=== PATIENT | female | born 1980 | race Caucasian/White ===

== ENCOUNTER 2016-10-24 15:47 | Inpatient (IN) | payer OTHER ==
[2016-10-24 18:27] VITALS: BMI 18.1
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
[2016-10-24] MEDS ORDERED: guaiFENesin/D-METHORPHAN HB 10 ML UNIT-DOSE CUPS PO PRN (20:46)
[2016-10-24] MEDS ORDERED: IBUPROFEN 400 MG TABLET (FP) PO PRN (20:46)
[2016-10-24] MEDS ORDERED: hydrOXYzine PAMOATE 50 MG CAPSULE (FP) PO PRN (20:46)
[2016-10-24] MEDS ORDERED: NICOTINE 14 MG/24 HOURS TOPICAL PATCH TD PRN (20:46)
[2016-10-24] MEDS ORDERED: MAG HYDROX/AL HYDROX/SIMETH 30 ML UNIT-DOSE CUP PO PRN (20:46)
[2016-10-24] MEDS ORDERED: MENTHOL/PHENOL 1 EACH UD MM PRN (20:46)
[2016-10-24] MEDS ORDERED: P-EPHED 60MG/TRIPROLIDI 2.5MG TABLET PO PRN (20:46)
[2016-10-24] MEDS ORDERED: LOPERAMIDE HCL 2 MG CAPSULE PO PRN (20:46)
[2016-10-24] MEDS ORDERED: MAGNESIUM CITRATE 300 ML BOTTLE PO PRN (20:46)
[2016-10-24] MEDS ORDERED: chlordiazePOXIDE HCL 25 MG CAPSULE PO ONE (20:46)
[2016-10-24] MEDS ORDERED: chlordiazePOXIDE HCL 25 MG CAPSULE PO PRN (20:46)
[2016-10-24] MEDS ORDERED: MAGNESIUM HYDROX 2400MG/30ML ORAL SUSPENSION 30 ML CUP PO PRN (20:46)
[2016-10-24] MEDS ORDERED: ACETAMINOPHEN 325 MG TABLET (FP) PO PRN (20:46)
[2016-10-24] MEDS: THIAMINE HCL 100 MG TABLET (FP) PO SCH (23:15)
[2016-10-24] MEDS: NICOTINE POLACRILEX 2 MG GUM BC PRN (23:22)
[2016-10-24] MEDS: chlordiazePOXIDE HCL 25 MG CAPSULE PO SCH (23:22)
[2016-10-25] MEDS: chlordiazePOXIDE HCL 25 MG CAPSULE PO SCH ×4 (05:28→22:11)
--- NOTE | 2016-10-25 07:45 | CONSULT ---
[facility] Psychiatric Consult - Data Date of interview: 10/25/16 Admission source: [facility] Identifying data: This is 35 years old female with unclear past psychiatric history, psychiatic hospitalization history intoxicated with: Alcohol and Nicotine Substance Abuse History: - Smoking Cessation. Smoking history: Current every day smoker. Have you smoked in the past 12 months: Yes. Aproximately how many cigarettes per day: 5. Cigars Per Day: 0. Hx Chewing Tobacco Use: No. Initiated information on smoking cessation: Yes. 'Breaking Loose' booklet given : 10/24/16. - Substance & Tx. History. Hx Alcohol Use: Yes. Hx Substance Use : No. Substance Use Type: Alcohol. Hx Substance Use Treatment: Yes (09/22/16 [facility]). - Substances Abused. Alcohol. Route: Oral. Frequency: Daily. Amount used: liquor- 1/2 pint, beer- 2 ( 22oz). Age of first use: 34. Date of Last Use: 10/24/16 Medical History: Denies Psychiatric History: Patient reprots unclear psychiatric history, history of PTSD, with most recent psychiatric admission on about 5 years ago at [facility] reprots taking priuor to admission: Invega IM (?) dosage done on 10/20/2016. [place] 300mg poqd Physical/Sexual Abuse/Trauma History: Denies Additional Comment: Invega IM (?) dosage done on 10/20/2016. [place] 300mg poqd Mental Status Exam - Mental Status Exam Alert and Oriented to: Person Cognitive Function: Fair Patient Appearance: Unkempt Mood: Sad Affect: Flat Patient Behavior: Sedated Speech Pattern: Delayed Voice Loudness: Mildly Soft/Quiet Thought Process: Circumstantial Thought Disorder: Being Controlled Hallucinations: Denies Suicidal Ideation: Denies Homicidal Ideation: Denies Insight/Judgement: Fair Sleep: Difficulty falling asleep Muscle strength/Tone: Mild Hypotonicity Additional Comments: Invega IM (?) dosage done on 10/20/2016. [place] 300mg poqd Psychiatric Findings - Problem List ([place] 1, 2,3) (1) Alcohol dependence with uncomplicated withdrawal Current Visit: Yes Status: Acute (2) Nicotine dependence Current Visit: Yes Status: Acute Qualifiers: Nicotine product type: cigarettes Substance use status: in withdrawal Qualified Code(s): F17.213 - Nicotine dependence, cigarettes, with withdrawal (3) Bipolar II disorder Current Visit: Yes Status: Acute (4) Schizoaffective disorder Current Visit: Yes Status: Suspected - Initial Treatment Plan Initial Treatment Plan: Invega IM (?) dosage done on 10/20/2016. [place] 300mg poqd
[2016-10-25 10:03] LABS: MCH 33.9 pg (25.7-33.7); MCHC 33.2 g/dl (32.0-36.0); MEAN CELL VOLUME 102.1 fl (80-96); MEAN PLT VOLUME 8.2 fl (7.5-11.1); PLATELET COUNT 93 K/MM3 (134-434); RDW 13.5 % (11.6-15.6); WHITE BLOOD COUNT 7.7 K/mm3 (4.0-10.0)
[2016-10-25] MEDS: PRENATAL VITAMINS W/ FOLIC ACID TABLET (FP) PO SCH (10:13)
[2016-10-25] MEDS: LITHIUM CARBONATE 300 MG CAPSULE (FP) PO SCH (10:13)
[2016-10-25] MEDS: NICOTINE POLACRILEX 2 MG GUM BC PRN ×4 (10:17→22:12)
[2016-10-25 10:35] LABS: ALBUMIN 3.3 g/dl (3.4-5.0); ANION GAP 9 (8-16); CALCIUM 9.3 mg/dL (8.5-10.1); CO2 28 mmol/L (21-32); GLUCOSE,RANDOM 73 mg/dL (74-106)
[2016-10-25 10:41] LABS: ALK PHOS 104 U/L (45-117); BILIRUBIN,TOTAL 0.9 mg/dL (0.2-1.0); CREATININE 0.5 mg/dL (0.55-1.02); SGOT/AST 62 U/L (15-37); SGPT/ALT 43 U/L (12-78); TOT PROT 6.5 g/dl (6.4-8.2)
--- NOTE | 2016-10-25 11:10 | PN ---
S CIWA - CIWA Score Nausea/Vomitin Muscle Tremors: 3 Anxiety: 3 Agitation: 3 Paroxysmal Sweats: 1-Minimal Palms Moist Orientation: 0-Oriented Tacttile Disturbances: 1-Very Mild Itch/Numbness Auditory Disturbances: 1-Very Mild Visual Disturbances: 1-Very Mild Sensitivity Headache: 2-Mild CIWA-Ar Total Score: 18 S Progress Note (SOAP) Subjective: ALERT,IRRITABLE,ANXIOUS,INTERRUPTED SLEEP,TREMOR Objective: 10/25/16 11:08 Vital Signs Temperature 99.1 F 10/25/16 09:45 Pulse Rate 99 H 10/25/16 09:45 Respiratory Rate 18 10/25/16 09:45 Blood Pressure 130/97 10/25/16 09:45 O2 Sat by Pulse Oximetry (%) EKG NSR 10/25/16 11:09 Laboratory Last Values WBC 7.7 K/mm3 (4.0-10.0) 10/25/16 07:00 RBC 3.96 M/mm3 (3.60-5.2) 10/25/16 07:00 Hgb 13.4 GM/dL (10.7-15.3) 10/25/16 07:00 Hct 40.4 % (32.4-45.2) 10/25/16 07:00 MCV 102.1 fl (80-96) H 10/25/16 07:00 MCH 33.9 pg (25.7-33.7) H 10/25/16 07:00 MCHC 33.2 g/dl (32.0-36.0) 10/25/16 07:00 RDW 13.5 % (11.6-15.6) 10/25/16 07:00 Plt Count 93 K/MM3 (134-434) L 10/25/16 07:00 MPV 8.2 fl (7.5-11.1) 10/25/16 07:00 Sodium 137 mmol/L (136-145) 10/25/16 07:00 Potassium 3.7 mmol/L (3.5-5.1) 10/25/16 07:00 Chloride 100 mmol/L (98-107) 10/25/16 07:00 Carbon Dioxide 28 mmol/L (21-32) 10/25/16 07:00 Anion Gap 9 (8-16) 10/25/16 07:00 BUN 4 mg/dL (7-18) L 10/25/16 07:00 Creatinine 0.5 mg/dL (0.55-1.02) L 10/25/16 07:00 Creat Clearance w eGFR > 60 (>60) 10/25/16 07:00 Random Glucose 73 mg/dL (74-106) L 10/25/16 07:00 Calcium 9.3 mg/dL (8.5-10.1) 10/25/16 07:00 Total Bilirubin 0.9 mg/dL (0.2-1.0) 10/25/16 07:00 AST 62 U/L (15-37) H 10/25/16 07:00 ALT 43 U/L (12-78) 10/25/16 07:00 Alkaline Phosphatase 104 U/L (45-117) 10/25/16 07:00 Total Protein 6.5 g/dl (6.4-8.2) 10/25/16 07:00 Albumin 3.3 g/dl (3.4-5.0) L 10/25/16 07:00 Assessment: 10/25/16 11:09 WITHDRAWAL SYMPTOM Plan: CONTINUE DETOX
--- NOTE | 2016-10-25 11:31 | EKG ---
Test Reason : Blood Pressure : / mmHG Vent. Rate : 075 BPM Atrial Rate : 075 BPM P-R Int : 142 ms QRS Dur : 088 ms QT Int : 392 ms P-R-T Axes : 061 092 042 degrees QTc Int : 437 ms NORMAL SINUS RHYTHM RIGHTWARD AXIS BORDERLINE ECG NO PREVIOUS ECGS AVAILABLE Confirmed by RAGHAV QUESADA, RAVI ([id number]) on 10/25/2016 11:30:59 AM Referred By: Nathan Carey Confirmed By:RAVI AVILEZ MD
[2016-10-25] MEDS: THIAMINE HCL 100 MG TABLET (FP) PO SCH (22:11)
[2016-10-25] MEDS: diphenhydrAMINE HCL 50 MG CAPSULE PO PRN (22:59)
[2016-10-26] MEDS: diphenhydrAMINE HCL 50 MG CAPSULE PO PRN (00:43)
[2016-10-26] MEDS: NICOTINE POLACRILEX 2 MG GUM BC PRN ×3 (00:44→06:47)
[2016-10-26] MEDS: chlordiazePOXIDE HCL 25 MG CAPSULE PO SCH (05:42)
--- NOTE | 2016-10-26 09:01 | PN ---
S CIWA - CIWA Score Nausea/Vomitin Muscle Tremors: 3 Anxiety: 3 Agitation: 2 Paroxysmal Sweats: No Perspiration Orientation: 0-Oriented Tacttile Disturbances: 1-Very Mild Itch/Numbness Auditory Disturbances: 1-Very Mild Visual Disturbances: 1-Very Mild Sensitivity Headache: 2-Mild CIWA-Ar Total Score: 16 BHS Progress Note (SOAP) Subjective: ALERT,IRRITABLE,ANXIOUS,INTERRUPTED SLEEP,TREMOR Objective: 10/26/16 08:59 Vital Signs Temperature 97.5 F L 10/26/16 06:02 Pulse Rate 95 H 10/26/16 06:02 Respiratory Rate 20 10/26/16 06:02 Blood Pressure 124/84 10/26/16 06:02 O2 Sat by Pulse Oximetry (%) Laboratory Last Values WBC 7.7 K/mm3 (4.0-10.0) 10/25/16 07:00 RBC 3.96 M/mm3 (3.60-5.2) 10/25/16 07:00 Hgb 13.4 GM/dL (10.7-15.3) 10/25/16 07:00 Hct 40.4 % (32.4-45.2) 10/25/16 07:00 MCV 102.1 fl (80-96) H 10/25/16 07:00 MCH 33.9 pg (25.7-33.7) H 10/25/16 07:00 MCHC 33.2 g/dl (32.0-36.0) 10/25/16 07:00 RDW 13.5 % (11.6-15.6) 10/25/16 07:00 Plt Count 93 K/MM3 (134-434) L 10/25/16 07:00 MPV 8.2 fl (7.5-11.1) 10/25/16 07:00 Sodium 137 mmol/L (136-145) 10/25/16 07:00 Potassium 3.7 mmol/L (3.5-5.1) 10/25/16 07:00 Chloride 100 mmol/L (98-107) 10/25/16 07:00 Carbon Dioxide 28 mmol/L (21-32) 10/25/16 07:00 Anion Gap 9 (8-16) 10/25/16 07:00 BUN 4 mg/dL (7-18) L 10/25/16 07:00 Creatinine 0.5 mg/dL (0.55-1.02) L 10/25/16 07:00 Creat Clearance w eGFR > 60 (>60) 10/25/16 07:00 Random Glucose 73 mg/dL (74-106) L 10/25/16 07:00 Calcium 9.3 mg/dL (8.5-10.1) 10/25/16 07:00 Total Bilirubin 0.9 mg/dL (0.2-1.0) 10/25/16 07:00 AST 62 U/L (15-37) H 10/25/16 07:00 ALT 43 U/L (12-78) 10/25/16 07:00 Alkaline Phosphatase 104 U/L (45-117) 10/25/16 07:00 Total Protein 6.5 g/dl (6.4-8.2) 10/25/16 07:00 Albumin 3.3 g/dl (3.4-5.0) L 10/25/16 07:00 [place] 0.3 MEQ/L (0.6-1.2) L 10/25/16 07:00 Assessment: 10/26/16 09:00 WITHDRAWAL SYMPTOM Plan: CONTINUE DETOX
--- NOTE | 2016-10-26 09:41 | PN ---
[facility] Progress Note Note: PATIENT DID NOT WANT TO COMPLETE TREATMENT ,SIGNED RELEASE AMA,DID NOT WANT TO WAIT, SIGNED RELEASE AMA
[2016-10-26 09:42] VITALS: BP 114/73; PULSE 124; TEMP 97.7
--- NOTE | 2016-10-26 09:44 | DS ---
[facility] Detox Discharge Summary Admission Date: 10/24/16 Discharge Date: 10/26/16 - History Present History: Alcohol Dependence, Cocaine Dependence Additional Comments: FOLLOW UP WITH AFTER CARE PROGRAM ARRANGEMENT Pertinent Past History: BIPOLAR 2 DISORDER NICOTINE DEPENDENCE - Physical Exam Results Vital Signs: Vital Signs Temperature 97.5 F L 10/26/16 06:02 Pulse Rate 95 H 10/26/16 06:02 Respiratory Rate 20 10/26/16 06:02 Blood Pressure 124/84 10/26/16 06:02 O2 Sat by Pulse Oximetry (%) Pertinent Admission Physical Exam Findings: WITHDRAWAL FINDING - Treatment Patient has Accepted a Rehab Referral to: DECLINED - Medication Discharge Medications: Ambulatory Orders [place] Carbonate [Eskalith -] 300 mg PO DAILY #30 cap 10/25/16 - Diagnosis (1) Alcohol dependence with uncomplicated withdrawal Current Visit: Yes Status: Acute (2) Bipolar II disorder Current Visit: Yes Status: Acute (3) Nicotine dependence Current Visit: Yes Status: Acute Qualifiers: Nicotine product type: cigarettes Substance use status: in withdrawal Qualified Code(s): F17.213 - Nicotine dependence, cigarettes, with withdrawal (4) Schizoaffective disorder Current Visit: Yes Status: Suspected (5) Cocaine dependence Current Visit: Yes Status: Acute - AMA Did Patient Leave Against Medical Advice: Yes
[2016-10-26] MEDS: PRENATAL VITAMINS W/ FOLIC ACID TABLET (FP) PO SCH (11:37)
[2016-10-26] MEDS: LITHIUM CARBONATE 300 MG CAPSULE (FP) PO SCH (11:37)
[2016-10-26] MEDS ORDERED: chlordiazePOXIDE 5 MG CAPSULE PO SCH (23:00)
[2016-10-27] MEDS ORDERED: chlordiazePOXIDE HCL 10 MG CAPSULE PO SCH (23:00)
== END 2016-10-26 09:55 | disposition left against medical advice (07) | DRG 770 ==
LOC: YASAS 15:47 → Y6N 20:28
PROVIDERS: ADMIT Internal Medicine; ATTEND Internal Medicine
PROC: HZ2ZZZZ Detoxification Services for Substance Abuse Treatment (ICD-10-PCS; principal; 2016-10-26)
DX: F10.230 Alcohol dependence with withdrawal, uncomplicated (principal); F14.20 Cocaine dependence, uncomplicated; F17.213 Nicotine dependence, cigarettes, with withdrawal; F25.9 Schizoaffective disorder, unspecified; F31.81 Bipolar II disorder
CPT/HCPCS: 36415; 80053; 80178; 85027; 86593; 93005; 93010

== ENCOUNTER 2017-01-01 13:40 | Inpatient (IN) | payer OTHER ==
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
[2017-01-01] MEDS ORDERED: MAGNESIUM CITRATE 300 ML BOTTLE PO PRN (18:25)
[2017-01-01] MEDS ORDERED: LOPERAMIDE HCL 2 MG CAPSULE PO PRN (18:25)
[2017-01-01] MEDS ORDERED: MAG HYDROX/AL HYDROX/SIMETH 30 ML UNIT-DOSE CUP PO PRN (18:25)
[2017-01-01] MEDS ORDERED: MAGNESIUM HYDROX 2400MG/30ML ORAL SUSPENSION 30 ML CUP PO PRN (18:25)
[2017-01-01] MEDS ORDERED: chlordiazePOXIDE HCL 25 MG CAPSULE PO ONE (18:25)
[2017-01-01] MEDS ORDERED: hydrOXYzine PAMOATE 25 MG CAPSULE (FP) PO PRN (18:25)
[2017-01-01] MEDS ORDERED: ACETAMINOPHEN 325 MG TABLET (FP) PO PRN (18:25)
[2017-01-01] MEDS ORDERED: guaiFENesin/D-METHORPHAN HB 10 ML UNIT-DOSE CUPS PO PRN (18:25)
[2017-01-01] MEDS ORDERED: chlordiazePOXIDE HCL 25 MG CAPSULE PO PRN (18:25)
[2017-01-01] MEDS ORDERED: P-EPHED 60MG/TRIPROLIDI 2.5MG TABLET PO PRN (18:25)
[2017-01-01] MEDS ORDERED: MENTHOL/PHENOL 1 EACH UD MM PRN (18:25)
[2017-01-01] MEDS ORDERED: NICOTINE POLACRILEX 4 MG GUM BC PRN (18:25)
[2017-01-01] MEDS ORDERED: diphenhydrAMINE HCL 50 MG CAPSULE PO PRN (18:25)
[2017-01-01] MEDS ORDERED: IBUPROFEN 400 MG TABLET (FP) PO PRN (18:25)
[2017-01-01] MEDS: NICOTINE 21 MG/24 HOURS TOPICAL PATCH TD SCH (19:35)
[2017-01-01] MEDS ORDERED: THIAMINE HCL 100 MG TABLET (FP) PO SCH (22:00)
[2017-01-01] MEDS: chlordiazePOXIDE HCL 25 MG CAPSULE PO SCH (22:09)
[2017-01-01 22:13] LABS: URINE APPEARANCE SLCLOUDY; URINE BILIRUBIN NEGATIVE (NEGATIVE); URINE BLOOD NEGATIVE (NEGATIVE); URINE COLOR LTYELLOW; URINE GLUCOSE (UA) NEGATIVE (NEGATIVE); URINE KETONE NEGATIVE (NEGATIVE); URINE NITRITE NEGATIVE (NEGATIVE); URINE PROTEIN NEGATIVE (NEGATIVE); URINE UROBILINOGEN NEGATIVE mg/dL (0.2-1.0)
[2017-01-02] MEDS: chlordiazePOXIDE HCL 25 MG CAPSULE PO SCH ×2 (05:06→10:24)
[2017-01-02 08:58] LABS: URINE LEUK ESTERASE Negative (NEGATIVE)
--- NOTE | 2017-01-02 09:15 | PN ---
S CIWA - CIWA Score Nausea/Vomitin Muscle Tremors: 3 Anxiety: 3 Agitation: 2 Paroxysmal Sweats: 1-Minimal Palms Moist Orientation: 0-Oriented Tacttile Disturbances: 1-Very Mild Itch/Numbness Auditory Disturbances: 1-Very Mild Visual Disturbances: 0-None Headache: 2-Mild CIWA-Ar Total Score: 16 BHS Progress Note (SOAP) Subjective: ALERT,IRRITABLE,INTERRUPTED SLEEP,TREMOR Objective: 01/02/17 09:12 Vital Signs Temperature 97.9 F 01/02/17 06:00 Pulse Rate 63 01/02/17 06:00 Respiratory Rate 18 01/02/17 06:00 Blood Pressure 108/75 01/02/17 06:00 O2 Sat by Pulse Oximetry (%) EKG NSR,INVERTED T IN V2 NO CHEST PAIN,NO SOB,NO DIZZINESS Laboratory Last Values Urine Color Ltyellow 01/01/17 21:45 Urine Appearance Slcloudy 01/01/17 21:45 Urine pH 5.0 (5.0-8.0) 01/01/17 21:45 Ur Specific [place] 1.010 (1.001-1.035) 01/01/17 21:45 Urine Protein Negative (NEGATIVE) 01/01/17 21:45 Urine Glucose (UA) Negative (NEGATIVE) 01/01/17 21:45 Urine Ketones Negative (NEGATIVE) 01/01/17 21:45 Urine Blood Negative (NEGATIVE) 01/01/17 21:45 Urine Nitrite Negative (NEGATIVE) 01/01/17 21:45 Urine Bilirubin Negative (NEGATIVE) 01/01/17 21:45 Urine Urobilinogen Negative mg/dL (0.2-1.0) 01/01/17 21:45 LABS PENDING Assessment: 01/02/17 09:14 WITHDRAWAL SYMPTOM 01/02/17 09:15 Plan: CONTINUE DETOX
[2017-01-02] MEDS ORDERED: PRENATAL VITAMINS W/ FOLIC ACID TABLET (FP) PO SCH (10:00)
[2017-01-02 10:05] LABS: MCHC 33.7 g/dl (32.0-36.0); MEAN CELL VOLUME 100.9 fl (80-96); MEAN PLT VOLUME 8.1 fl (7.5-11.1); PLATELET COUNT 350 K/MM3 (134-434); RDW 13.9 % (11.6-15.6); WHITE BLOOD COUNT 8.7 K/mm3 (4.0-10.0)
[2017-01-02 10:06] LABS: ALBUMIN 3.3 g/dl (3.4-5.0); ALK PHOS 94 U/L (45-117); ANION GAP 7 (8-16); BILIRUBIN,TOTAL 0.3 mg/dL (0.2-1.0); CALCIUM 8.8 mg/dL (8.5-10.1); CO2 27 mmol/L (21-32); CREATININE 0.5 mg/dL (0.55-1.02); GLUCOSE,RANDOM 77 mg/dL (74-106); SGOT/AST 50 U/L (15-37); SGPT/ALT 63 U/L (12-78); TOT PROT 6.9 g/dl (6.4-8.2)
[2017-01-02] MEDS: NICOTINE 21 MG/24 HOURS TOPICAL PATCH TD SCH (10:24)
--- NOTE | 2017-01-02 15:10 | PN ---
[facility] Progress Note Note: call by nurse,patient did not want to complete treatment is not ready to continue detox,seen by counselor,signed release ama,did not want to wait
--- NOTE | 2017-01-02 15:11 | DS ---
[facility] Detox Discharge Summary Admission Date: 01/01/17 Discharge Date: 01/02/17 - History Present History: Alcohol Dependence, Cannabis Dependence Additional Comments: patient did not want to complete treatment,not ready to continue detox,seen by counselor,did not want to wait,signed release ama Pertinent Past History: nicotine dependence seizure disorder - Physical Exam Results Vital Signs: Vital Signs Temperature 98.1 F 01/02/17 10:00 Pulse Rate 80 01/02/17 10:00 Respiratory Rate 16 01/02/17 10:00 Blood Pressure 112/70 01/02/17 10:00 O2 Sat by Pulse Oximetry (%) Pertinent Admission Physical Exam Findings: withdrawal symptom - Medication Discharge Medications: Ambulatory Orders NK [No Known Home Medication] 01/01/17 - Diagnosis (1) Alcohol dependence with uncomplicated withdrawal Current Visit: Yes Status: Acute (2) Cannabis dependence, uncomplicated Current Visit: Yes Status: Acute (3) Nicotine dependence Current Visit: Yes Status: Acute Qualifiers: Nicotine product type: cigarettes Substance use status: in withdrawal Qualified Code(s): F17.213 - Nicotine dependence, cigarettes, with withdrawal; F17.213 - Nicotine dependence, cigarettes, with withdrawal (4) Seizure disorder Current Visit: Yes Status: Chronic - AMA Did Patient Leave Against Medical Advice: Yes
[2017-01-02 15:20] VITALS: BP 112/89; PULSE 97; TEMP 99.1
[2017-01-02] MEDS ORDERED: chlordiazePOXIDE HCL 25 MG CAPSULE PO SCH (23:00)
--- NOTE | 2017-01-03 12:48 | EKG ---
Test Reason : Blood Pressure : / mmHG Vent. Rate : 082 BPM Atrial Rate : 082 BPM P-R Int : 152 ms QRS Dur : 092 ms QT Int : 390 ms P-R-T Axes : 072 192 039 degrees QTc Int : 455 ms NORMAL SINUS RHYTHM POSSIBLE LEFT ATRIAL ENLARGEMENT RIGHT SUPERIOR AXIS DEVIATION INCOMPLETE RIGHT BUNDLE BRANCH BLOCK CANNOT RULE OUT ANTERIOR INFARCT , AGE UNDETERMINED ABNORMAL ECG WHEN COMPARED WITH ECG OF 24-OCT-2016 21:16, INCOMPLETE RIGHT BUNDLE BRANCH BLOCK IS NOW PRESENT Confirmed by RAGHAV QUESADA, RAVI ([id number]) on 01/03/2017 12:47:43 PM Referred By: Confirmed By:RAVI AVILEZ MD
[2017-01-03] MEDS ORDERED: chlordiazePOXIDE 5 MG CAPSULE PO SCH (23:00)
[2017-01-04] MEDS ORDERED: chlordiazePOXIDE HCL 10 MG CAPSULE PO SCH (23:00)
== END 2017-01-02 15:25 | disposition left against medical advice (07) | DRG 770 ==
LOC: YASAS 13:40 → Y6N 19:01
PROVIDERS: ADMIT Internal Medicine; ATTEND Internal Medicine
PROC: HZ2ZZZZ Detoxification Services for Substance Abuse Treatment (ICD-10-PCS; principal; 2017-01-01)
DX: F10.230 Alcohol dependence with withdrawal, uncomplicated (principal); F12.20 Cannabis dependence, uncomplicated; F17.213 Nicotine dependence, cigarettes, with withdrawal; G40.909 Epilepsy, unspecified, not intractable, without status epilepticus
CPT/HCPCS: 36415; 80053; 81003; 85027; 86593; 93005; 93010

== ENCOUNTER 2017-02-05 19:09 | Inpatient (IN) | payer OTHER ==
[2017-02-05 20:46] VITALS: BMI 20.6
--- NOTE | 2017-02-05 22:55 | HP ---
CIWA Score - CIWA Score Nausea/Vomitin Muscle Tremors: 4-Moderate,w/Arms Extend Anxiety: 4-Mod. Anxious/Guarded Agitation: 3 Paroxysmal Sweats: 3 Orientation: 0-Oriented Tacttile Disturbances: 1-Very Mild Itch/Numbness Auditory Disturbances: 0-None Visual Disturbances: 0-None Headache: 0-None Present CIWA-Ar Total Score: 18 Admission ROS BHS - HPI Chief Complaint: Alcohol withdrawal symptoms Allergies/Adverse Reactions: Allergies Allergy/AdvReac Type Severity Reaction Status Date / Time No Known Allergies Allergy Verified 02/05/17 22:07 History of Present Illness: 36 years old female with a long history of alcohol and marijuana dependence is admitted to detox. Patient has been in previous and reports insignificant period of sobriety. Patient has medical history of seizures, depression and denies suicidal ideation at this time. she states, " My goal is to quit drinking alcohol." Exam Limitations: Intoxication - Ebola screening Have you traveled outside of the country in the last 21 days: No Have you had contact with anyone from an Ebola affected area: No Have you been sick,other than usual withdrawal symptoms: No Do you have a fever: No - Review of Systems Constitutional: Chills, Diaphoresis, Loss of Appetite, Night Sweats, Changes in sleep EENT: reports: Sinus Pressure Respiratory: reports: No Symptoms reported Cardiac: reports: No Symptoms Reported GI: reports: Poor Appetite, Poor Fluid Intake, Vomiting, Indigestion, Abdominal cramping : reports: No Symptoms Reported Musculoskeletal: reports: Muscle Pain, Muscle Weakness Integumentary: reports: No Symptoms Reported Neuro: reports: Headache, Seizure, Tingling, Tremors Endocrine: reports: No Symptoms Reported Hematology: reports: No Symptoms Reported Psychiatric: reports: Orientated x3, Agitated, Anxious, Depressed Other Systems: Reviewed and Negative Patient History - Patient Medical History Hx Anemia: No Hx Asthma: No Hx Chronic Obstructive Pulmonary Disease (COPD): No Hx Cancer: No Hx Cardiac Disorders: No Hx Congestive Heart Failure: No Hx Hypertension: No Hx Hypercholesterolemia: No Hx Pacemaker: No HX Cerebrovascular Accident: No Hx Seizures: Yes (alcohol related-last episode was 2 weeks ago) Hx Dementia: No Hx Diabetes: No Hx Gastrointestinal Disorders: No Hx Liver Disease: No Hx Genitourinary Disorders: No Hx Sexually Transmitted Disorders: No (DENIES) Hx Renal Disease (ESRD): No Hx Thyroid Disease: No Hx Human Immunodeficiency Virus (HIV): No (NEGATIVE HX) Hx Hepatitis C: No Hx Depression: Yes Hx Suicide Attempt: Yes (DENIES SUICIDAL IDEATION) Hx Bipolar Disorder: Yes Hx Schizophrenia: Yes (schizoaffective disorder) - Patient Surgical History Past Surgical History: No Hx Neurologic Surgery: No Hx Cataract Extraction: No Hx Cardiac Surgery: No Hx Lung Surgery: No Hx Breast Surgery: No Hx Breast Biopsy: No Hx Abdominal Surgery: No Hx Appendectomy: No Hx Cholecystectomy: No Hx Genitourinary Surgery: No Hx Section: No Hx Orthopedic Surgery: No Hx Hysterectomy: No Anesthesia Reaction: No - PPD History Previous Implant?: Yes Implanted On Prior R Admission?: Yes Date: 01/03/17 (PATIENT LEFT BEFORE READING) PPD to be Administered?: Yes - Reproductive History Patient is a Female of Child Bearing Age (11 -55 yrs old): Yes Last Menstrual Period: 02/01/17 Patient : No - Smoking Cessation Smoking history: Current every day smoker Have you smoked in the past 12 months: Yes Aproximately how many cigarettes per day: 20 Cigars Per Day: 0 Hx Chewing Tobacco Use: No Initiated information on smoking cessation: Yes 'Breaking Loose' booklet given: 02/05/17 - Substance & Tx. History Hx Alcohol Use: Yes Hx Substance Use: Yes Substance Use Type: Alcohol, Marijuana - Substances Abused Alcohol Route: Oral Frequency: Daily Amount used: beer- 4 (24oz), VODKA- I PINT Age of first use: 16 Date of Last Use: 02/05/17 Marijuana/Hashish Route: Smoking Frequency: 3-6 times per week Amount used: I OUNCE Age of first use: 15 Date of Last Use: 02/05/17 Family Disease History - Family Disease History Family Disease History: CA: Mother, Other: Mother Admission Physical Exam BHS - Vital Signs Vital Signs: Vital Signs - 24 hr 02/05/17 20:42 Temperature 96.7 F L Pulse Rate 94 H Respiratory 18 Rate Blood Pressure 109/65 - Physical General Appearance: Yes: Severe Distress, Intoxicated, Tremorous, Irritable, Anxious HEENTM: Yes: EOMI, DIETER Respiratory: Yes: Lungs Clear, Normal Breath Sounds, No Respiratory Distress Neck: Yes: Supple Breast: Yes: Breast Exam Deferred Cardiology: Yes: Regular Rhythm, Regular Rate, S1, S2 Abdominal: Yes: Normal Bowel Sounds, Soft Genitourinary: Yes: Within Normal Limits Back: Yes: Within Normal Limits Musculoskeletal: Yes: Within Normal Limits Extremities: Yes: Tremors Neurological: Yes: Disoriented, Depressed Affect Integumentary: Yes: Dry Lymphatic: Yes: Within Normal Limits - Diagnostic (1) Alcohol dependence with uncomplicated withdrawal Current Visit: Yes Status: Chronic (2) Cannabis dependence, uncomplicated Current Visit: Yes Status: Chronic (3) Nicotine dependence Current Visit: Yes Status: Chronic Qualifiers: Nicotine product type: cigarettes Substance use status: in withdrawal Qualified Code(s): F17.213 - Nicotine dependence, cigarettes, with withdrawal (4) Seizure disorder Current Visit: Yes Status: Chronic Cleared for Admission [facility] - Detox or Rehab [facility] Level of Care: Medically Managed Detox Regimen/Protocol: Librium [facility] Breath Alcohol Content Breath Alcohol Content: 0.260 Urine Pregancy Test - Result Urine Test Results: Negative- NO Line Present Urine Drug Screen - Results Drug Screen Negative: No Urine Drug Screen Results: THC-Marijuana, BZO-Benzodiazepines
[2017-02-05] MEDS ORDERED: P-EPHED 60MG/TRIPROLIDI 2.5MG TABLET PO PRN (23:14)
[2017-02-05] MEDS ORDERED: hydrOXYzine PAMOATE 50 MG CAPSULE (FP) PO PRN (23:14)
[2017-02-05] MEDS ORDERED: MAGNESIUM HYDROX 2400MG/30ML ORAL SUSPENSION 30 ML CUP PO PRN (23:14)
[2017-02-05] MEDS ORDERED: LOPERAMIDE HCL 2 MG CAPSULE PO PRN (23:14)
[2017-02-05] MEDS ORDERED: ACETAMINOPHEN 325 MG TABLET (FP) PO PRN (23:14)
[2017-02-05] MEDS ORDERED: MENTHOL/PHENOL 1 EACH UD MM PRN (23:14)
[2017-02-05] MEDS ORDERED: MAGNESIUM CITRATE 300 ML BOTTLE PO PRN (23:14)
[2017-02-05] MEDS ORDERED: chlordiazePOXIDE HCL 25 MG CAPSULE PO PRN (23:14)
[2017-02-05] MEDS ORDERED: IBUPROFEN 400 MG TABLET (FP) PO PRN (23:14)
[2017-02-05] MEDS ORDERED: guaiFENesin/D-METHORPHAN HB 10 ML UNIT-DOSE CUPS PO PRN (23:14)
[2017-02-05] MEDS ORDERED: MAG HYDROX/AL HYDROX/SIMETH 30 ML UNIT-DOSE CUP PO PRN (23:14)
[2017-02-05] MEDS: chlordiazePOXIDE HCL 25 MG CAPSULE PO SCH (23:54)
[2017-02-06] MEDS: chlordiazePOXIDE HCL 25 MG CAPSULE PO SCH ×4 (05:18→22:36)
[2017-02-06] MEDS ORDERED: NICOTINE 14 MG/24 HOURS TOPICAL PATCH TD SCH (10:00)
[2017-02-06] MEDS ORDERED: PRENATAL VITAMINS W/ FOLIC ACID TABLET (FP) PO SCH (10:00)
[2017-02-06 10:05] LABS: MCH 34.1 pg (25.7-33.7); MCHC 33.5 g/dl (32.0-36.0); MEAN PLT VOLUME 8.5 fl (7.5-11.1); PLATELET COUNT 207 K/MM3 (134-434); RDW 13.5 % (11.6-15.6); WHITE BLOOD COUNT 7.4 K/mm3 (4.0-10.0)
[2017-02-06 10:16] LABS: CALCIUM 8.8 mg/dL (8.5-10.1)
[2017-02-06 10:22] LABS: ALBUMIN 3.7 g/dl (3.4-5.0); ALK PHOS 70 U/L (45-117); ANION GAP 10 (8-16); BILIRUBIN,TOTAL 0.3 mg/dL (0.2-1.0); CO2 26 mmol/L (21-32); CREATININE 0.6 mg/dL (0.55-1.02); GLUCOSE,RANDOM 67 mg/dL (74-106); SGOT/AST 19 U/L (15-37); SGPT/ALT 26 U/L (12-78); TOT PROT 7.2 g/dl (6.4-8.2)
--- NOTE | 2017-02-06 11:59 | PN ---
S CIWA - CIWA Score Nausea/Vomitin-No Nausea/No Vomiting Muscle Tremors: 4-Moderate,w/Arms Extend Anxiety: 4-Mod. Anxious/Guarded Agitation: 4-Moderately Restless Paroxysmal Sweats: 3 Orientation: 0-Oriented Tacttile Disturbances: 0-None Auditory Disturbances: 0-None Visual Disturbances: 0-None Headache: 0-None Present CIWA-Ar Total Score: 15 BHS Progress Note (SOAP) Subjective: interrupted sleep agitation sweats shakes body aches Objective: 02/06/17 11:58 Vital Signs Temperature 97.9 F 02/06/17 09:32 Pulse Rate 97 H 02/06/17 09:32 Respiratory Rate 18 02/06/17 09:32 Blood Pressure 114/74 02/06/17 09:32 O2 Sat by Pulse Oximetry (%) Laboratory Tests 02/06/17 02/06/17 07:00 07:00 WBC 7.4 RBC 3.91 Hgb 13.3 Hct 39.9 MCV 102.0 H MCH 34.1 H MCHC 33.5 RDW 13.5 Plt Count 207 D MPV 8.5 Sodium 140 Potassium 4.1 Chloride 104 Carbon Dioxide 26 Anion Gap 10 BUN 7 Creatinine 0.6 Creat Clearance w eGFR > 60 Random Glucose 67 L Calcium 8.8 Total Bilirubin 0.3 AST 19 D ALT 26 D Alkaline Phosphatase 70 D Total Protein 7.2 Albumin 3.7 aaox3 ambulating no acute distress Assessment: 02/06/17 11:59 withdrawal sx Plan: continue detox increase fluids
--- NOTE | 2017-02-06 14:23 | PN ---
BHS Progress Note Note: Digital Research Analyst approached patient for psychiatric consultation. Pt. refused to be seen by psychiatric nurse practitioner.
[2017-02-06] MEDS: NICOTINE POLACRILEX 2 MG GUM BC PRN ×2 (14:54→21:49)
--- NOTE | 2017-02-06 15:12 | CONSULT ---
[facility] Psych[facility] Consult - Data Date of interview: 02/06/17
--- NOTE | 2017-02-06 16:15 | CONSULT ---
[facility] Psychiatric Consult - Data Date of interview: 02/06/17 Admission source: [facility] Identifying data: Readmission to [facility] for this 36 y/o female seeking detox treatment on for alcohol and marihuana dependence.Patient is single without children,homeless,unemployed and dependent on friends for financial support. Substance Abuse History: Discussed in this session.See current [facility] report for details. Smoking history: Current every day smoker. Have you smoked in the past 12 months: Yes. Aproximately how many cigarettes per day: 20. Cigars Per Day: 0. Hx Chewing Tobacco Use: No. Initiated information on smoking cessation : Yes. 'Breaking Loose' booklet given: 02/05/17. - Substance & Tx. History. Hx Alcohol Use: Yes. Hx Substance Use: Yes. Substance Use Type: Alcohol, Marijuana. - Substances Abused. Alcohol. Route: Oral. Frequency: Daily. Amount used: beer- 4 (24oz), VODKA- I PINT. Age of first use: 16. Date of Last Use: 02/05/17. Marijuana/Hashish. Route: Smoking. Frequency: 3-6 times per week. Amount used: I OUNCE. Age of first use: 15. Date of Last Use : 02/05/17 Medical History: History of seizures (withdrawal-related). Psychiatric History: Patient is a hostile and irritable historian.Marginally cooperative.In this interview she denies history of psychiatric hospitalizations but admits to the diagnosis of PTSD.Ms Whitman indicates past connection with [facility] health clinic in [facility].She reports no current exposure to psychotropic medications (old records indicate past treatment with lithium as of October 2016 and previous admisssion to [facility])." I am not on psychiatric medications now and I don't want to take any." Patient denies history of suicide attempts. Physical/Sexual Abuse/Trauma History: Patient denies to discuss this domain. Additional Comment: Urine Drug Screen Results: THC-Marijuana, BZO- Benzodiazepines.Noted. Mental Status Exam - Mental Status Exam Alert and Oriented to: Time, Place, Person Cognitive Function: Grossly Intact Patient Appearance: Unkempt, Disheveled Mood: Nervous, Withdrawn, Anxious Affect: Mood Congruent Patient Behavior: Fatigued, Cooperative (superficially coperative) Speech Pattern: Clear, Appropriate Voice Loudness: Normal Thought Process: Goal Oriented Thought Disorder: Not Present Hallucinations: Denies Suicidal Ideation: Denies Homicidal Ideation: Denies Insight/Judgement: Poor Sleep: Well (as per self-report) Appetite: Fair Muscle strength/Tone: Normal Gait/Station: Normal Psychiatric Findings - Problem List ([place] 1, 2,3) (1) Alcohol dependence with uncomplicated withdrawal Current Visit: Yes Status: Acute (2) Cannabis dependence, uncomplicated Current Visit: Yes Status: Acute (3) Nicotine dependence Current Visit: Yes Status: Acute Qualifiers: Nicotine product type: cigarettes Substance use status: in withdrawal Qualified Code(s): F17.213 - Nicotine dependence, cigarettes, with withdrawal (4) Substance induced mood disorder Current Visit: Yes Status: Acute - Initial Treatment Plan Initial Treatment Plan: Psychoeducation.Detoxification.Observation.
[2017-02-06 18:13] LABS: URINE APPEARANCE SLCLOUDY; URINE BILIRUBIN NEGATIVE (NEGATIVE); URINE BLOOD NEGATIVE (NEGATIVE); URINE COLOR LTYELLOW; URINE GLUCOSE (UA) NEGATIVE (NEGATIVE); URINE KETONE NEGATIVE (NEGATIVE); URINE NITRITE NEGATIVE (NEGATIVE); URINE PROTEIN NEGATIVE (NEGATIVE); URINE UROBILINOGEN NEGATIVE mg/dL (0.2-1.0)
[2017-02-06] MEDS ORDERED: THIAMINE HCL 100 MG TABLET (FP) PO SCH (22:00)
[2017-02-06 22:59] LABS: URINE LEUK ESTERASE Negative (NEGATIVE)
[2017-02-07] MEDS: NICOTINE POLACRILEX 2 MG GUM BC PRN (06:20)
[2017-02-07] MEDS: chlordiazePOXIDE HCL 25 MG CAPSULE PO SCH (06:22)
[2017-02-07 06:24] VITALS: BP 112/76; PULSE 59; TEMP 96.9
--- NOTE | 2017-02-07 07:57 | EKG ---
Test Reason : Blood Pressure : / mmHG Vent. Rate : 077 BPM Atrial Rate : 077 BPM P-R Int : 150 ms QRS Dur : 090 ms QT Int : 402 ms P-R-T Axes : 059 068 036 degrees QTc Int : 454 ms NORMAL SINUS RHYTHM NORMAL ECG WHEN COMPARED WITH ECG OF 01-JAN-2017 18:26, INCOMPLETE RIGHT BUNDLE BRANCH BLOCK IS NO LONGER PRESENT Confirmed by MD Patel Daniel ([id number]) on 02/06/2017 3:01:13 PM Also confirmed by MD Patel Daniel ([id number]), industrial editor KEMI GARCIA ([id number]) on 02/07/2017 7:57:12 AM Referred By: Confirmed By:Kemi Patel MD
--- NOTE | 2017-02-07 09:18 | PN ---
[facility] Progress Note Note: pt refused to stay and complete detox she states she needs to go home. pt signed out AMA.
--- NOTE | 2017-02-07 09:20 | DS ---
[facility] Detox Discharge Summary Admission Date: 02/05/17 Discharge Date: 02/07/17 (pt signed out AMA) - History Present History: Alcohol Dependence, Cannabis Dependence, Cocaine Dependence - Physical Exam Results Vital Signs: Vital Signs Temperature 96.9 F L 02/07/17 06:23 Pulse Rate 59 L 02/07/17 06:23 Respiratory Rate 16 02/07/17 06:23 Blood Pressure 112/76 02/07/17 06:23 O2 Sat by Pulse Oximetry (%) - Treatment Hospital Course: Discharged Condition Good - Medication Discharge Medications: Ambulatory Orders NK [No Known Home Medication] 01/01/17 - Diagnosis (1) Alcohol dependence with uncomplicated withdrawal Current Visit: Yes Status: Chronic (2) Cannabis dependence, uncomplicated Current Visit: Yes Status: Chronic (3) Nicotine dependence Current Visit: Yes Status: Chronic Qualifiers: Nicotine product type: cigarettes Substance use status: uncomplicated Qualified Code(s): F17.210 - Nicotine dependence, cigarettes, uncomplicated (4) Substance induced mood disorder Current Visit: Yes Status: Acute (5) Seizure disorder Current Visit: Yes Status: Chronic (6) Bipolar II disorder Current Visit: No Status: Acute (7) Cocaine dependence Current Visit: Yes Status: Chronic Qualifiers: Substance use status: uncomplicated Qualified Code(s): F14.20 - Cocaine dependence, uncomplicated (8) Schizoaffective disorder Current Visit: No Status: Suspected - AMA Did Patient Leave Against Medical Advice: Yes (going home)
[2017-02-07] MEDS ORDERED: chlordiazePOXIDE 5 MG CAPSULE PO SCH (23:00)
[2017-02-08] MEDS ORDERED: chlordiazePOXIDE HCL 10 MG CAPSULE PO SCH (23:00)
== END 2017-02-07 08:52 | disposition home or self-care (01) | DRG 774 ==
LOC: YASAS 19:09 → Y6N 22:20
PROVIDERS: ADMIT Internal Medicine; ATTEND Internal Medicine
PROC: HZ2ZZZZ Detoxification Services for Substance Abuse Treatment (ICD-10-PCS; principal; 2017-02-05)
DX: F10.230 Alcohol dependence with withdrawal, uncomplicated (principal); F14.20 Cocaine dependence, uncomplicated; F12.20 Cannabis dependence, uncomplicated; F17.210 Nicotine dependence, cigarettes, uncomplicated; F19.24 Other psychoactive substance dependence with psychoactive substance-induced mood disorder; F25.9 Schizoaffective disorder, unspecified; F31.81 Bipolar II disorder; G40.909 Epilepsy, unspecified, not intractable, without status epilepticus
CPT/HCPCS: 36415; 80053; 81003; 85027; 86593; 93005; 93010

== ENCOUNTER 2017-12-26 13:26 | Inpatient (IN) | payer OTHER ==
[2017-12-26 15:10] VITALS: BMI 18.7
--- NOTE | 2017-12-26 16:25 | HP ---
CIWA Score - CIWA Score Nausea/Vomitin-No Nausea/No Vomiting Muscle Tremors: 2 Anxiety: 3 Agitation: 3 Paroxysmal Sweats: 2 Orientation: 1-Uncertain about Date (no distress) Tacttile Disturbances: 1-Very Mild Itch/Numbness Auditory Disturbances: 0-None Visual Disturbances: 0-None Headache: 0-None Present CIWA-Ar Total Score: 12 Admission ROS BHS - HPI Chief Complaint: alcohol withdrawal symptoms Allergies/Adverse Reactions: Allergies Allergy/AdvReac Type Severity Reaction Status Date / Time No Known Allergies Allergy Verified 12/26/17 14:57 History of Present Illness: 37 yo female with hx of nicotine, marijuana and alcohol dependence is here seeking detox. Utox positive for bzo and THC. Reports was admitted to [facility] two weeks ago to the psych gonzalez for "nervous break down." Reports visited [facility] yesterday for alcohol use. PMHX: schizophrenia. Denies suicidal / homicidal ideation or hx of suicide attempt. Last detox [facility] and Re[facility] September 2017. Hx of ETOH seizure with last episode Nov 2017. Longest period of sobriety 8 years and relapsed at age 36. Exam Limitations: No Limitations - Ebola screening Have you traveled outside of the country in the last 21 days: No Have you had contact with anyone from an Ebola affected area: No Have you been sick,other than usual withdrawal symptoms: No Do you have a fever: No - Review of Systems Constitutional: Chills, Weight Stable EENT: reports: No Symptoms Reported Respiratory: reports: No Symptoms reported Cardiac: reports: No Symptoms Reported GI: reports: No Symptoms Reported : reports: No Symptoms Reported Musculoskeletal: reports: Back Pain, Joint Pain Integumentary: reports: Dryness Neuro: reports: No Symptoms reported Endocrine: reports: Increased Thirst Hematology: reports: No Symptoms Reported Psychiatric: reports: Orientated x3, Anxious Other Systems: Reviewed and Negative Patient History - Patient Medical History Hx Anemia: No Hx Asthma: No Hx Chronic Obstructive Pulmonary Disease (COPD): No Hx Cancer: No Hx Cardiac Disorders: No Hx Congestive Heart Failure: No Hx Hypertension: No Hx Hypercholesterolemia: No Hx Pacemaker: No HX Cerebrovascular Accident: No Hx Seizures: Yes ([facility] 11/2017) Hx Dementia: No Hx Diabetes: No Hx Gastrointestinal Disorders: No Hx Liver Disease: No Hx Genitourinary Disorders: No Hx Sexually Transmitted Disorders: No Hx Renal Disease (ESRD): No Hx Thyroid Disease: No Hx Human Immunodeficiency Virus (HIV): No (NEGATIVE HX) Hx Hepatitis C: No Hx Depression: No Hx Suicide Attempt: No Hx Bipolar Disorder: Yes Hx Schizophrenia: Yes (diagnosed at 24 years old) - Patient Surgical History Past Surgical History: No Hx Neurologic Surgery: No Hx Cataract Extraction: No Hx Cardiac Surgery: No Hx Lung Surgery: No Hx Breast Surgery: No Hx Breast Biopsy: No Hx Abdominal Surgery: No Hx Appendectomy: No Hx Cholecystectomy: No Hx Genitourinary Surgery: No Hx Section: No Hx Orthopedic Surgery: No Hx Hysterectomy: No Anesthesia Reaction: No - PPD History Previous Implant?: Yes Documented Results: Negative w/proof Implanted On Prior [facility] Admission?: Yes Date: 01/03/17 PPD to be Administered?: No - Reproductive History Last Menstrual Period: 02/01/17 Patient : No - Smoking Cessation Smoking history: Current every day smoker Have you smoked in the past 12 months: Yes Aproximately how many cigarettes per day: 20 Cigars Per Day: 0 Hx Chewing Tobacco Use: No Initiated information on smoking cessation: Yes 'Breaking Loose' booklet given: 12/26/17 - Substance & Tx. History Hx Alcohol Use: Yes Hx Substance Use: Yes Substance Use Type: Alcohol Hx Substance Use Treatment: Yes (Last detox [facility] detox and Rehab September 2017) - Substances Abused Alcohol Route: Oral Frequency: Daily Amount used: 2 pints of vodka Age of first use: 16 Date of Last Use: 12/25/17 Marijuana/Hashish Route: Smoking Frequency: 1-3 times last 30 days Amount used: 1 ayla bag Age of first use: 16 Date of Last Use: 12/24/17 Family Disease History - Family Disease History Family Disease History: CA: Mother, Other: Mother Admission Physical Exam BHS - Vital Signs Vital Signs: Vital Signs - 24 hr 12/26/17 14:59 Temperature 98.3 F Pulse Rate 106 H Respiratory 16 Rate Blood Pressure 118/78 - Physical General Appearance: Yes: Disheveled, Thin, Other (unkempt) HEENTM: Yes: EOMI, Hearing grossly Normal, Normal ENT Inspection, Normocephalic , Normal Voice, DIETER, Pharynx Normal, Tm's normal, Other (dry mucous membranes) Respiratory: Yes: Chest Non-Tender, Lungs Clear, Normal Breath Sounds, No Respiratory Distress, No Accessory Muscle Use Neck: Yes: Within Normal Limits Breast: Yes: Breast Exam Deferred Cardiology: Yes: Regular Rhythm, Regular Rate Abdominal: Yes: Normal Bowel Sounds, Non Tender, Flat, Soft Genitourinary: Yes: Within Normal Limits Back: Yes: Normal Inspection Musculoskeletal: Yes: full range of Motion, Gait Steady, Pelvis Stable, Back pain Extremities: Yes: Normal Capillary Refill, Normal Inspection, Normal Range of Motion Neurological: Yes: charting clerk II-XII NML intact, Fully Oriented, Alert, Motor Strength 5/5, Depressed Affect Integumentary: Yes: Normal Color, Warm, Moist Lymphatic: Yes: Within Normal Limits - Diagnostic (1) Alcohol dependence with uncomplicated withdrawal Current Visit: Yes Status: Chronic (2) Cannabis dependence, uncomplicated Current Visit: Yes Status: Chronic (3) Cocaine dependence Current Visit: Yes Status: Chronic Qualifiers: Substance use status: uncomplicated Qualified Code(s): F14.20 - Cocaine dependence, uncomplicated (4) Nicotine dependence Current Visit: Yes Status: Chronic Qualifiers: Nicotine product type: cigarettes Substance use status: uncomplicated Qualified Code(s): F17.210 - Nicotine dependence, cigarettes, uncomplicated (5) Psychiatric disorder Current Visit: Yes Status: Suspected Cleared for Admission [facility] - Detox or Rehab [facility] Level of Care: Medically Managed Detox Regimen/Protocol: Librium [facility] Breath Alcohol Content Breath Alcohol Content: 0 Urine Pregancy Test - Result Urine Test Results: Negative- NO Line Present Urine Drug Screen - Results Drug Screen Negative: No Urine Drug Screen Results: THC-Marijuana, BZO-Benzodiazepines
[2017-12-26] MEDS ORDERED: guaiFENesin/D-METHORPHAN HB 10 ML UNIT-DOSE CUPS PO PRN (16:28)
[2017-12-26] MEDS ORDERED: chlordiazePOXIDE HCL 25 MG CAPSULE PO PRN (16:28)
[2017-12-26] MEDS ORDERED: ACETAMINOPHEN 325 MG TABLET (FP) PO PRN (16:28)
[2017-12-26] MEDS ORDERED: IBUPROFEN 400 MG TABLET (FP) PO PRN (16:28)
[2017-12-26] MEDS ORDERED: hydrOXYzine PAMOATE 50 MG CAPSULE (FP) PO PRN (16:28)
[2017-12-26] MEDS ORDERED: MAGNESIUM CITRATE 300 ML BOTTLE PO PRN (16:28)
[2017-12-26] MEDS ORDERED: MAGNESIUM HYDROX 2400MG/30ML ORAL SUSPENSION 30 ML CUP PO PRN (16:28)
[2017-12-26] MEDS ORDERED: MENTHOL/PHENOL 1 EACH UD MM PRN (16:28)
[2017-12-26] MEDS ORDERED: P-EPHED 60MG/TRIPROLIDI 2.5MG TABLET PO PRN (16:28)
[2017-12-26] MEDS ORDERED: LOPERAMIDE HCL 2 MG CAPSULE PO PRN (16:28)
[2017-12-26] MEDS ORDERED: MAG HYDROX/AL HYDROX/SIMETH 30 ML UNIT-DOSE CUP PO PRN (16:28)
[2017-12-26] MEDS ORDERED: MELATONIN 5 MG TABLETS PO PRN (22:00)
[2017-12-26] MEDS ORDERED: THIAMINE HCL 100 MG TABLET (FP) PO SCH (22:00)
[2017-12-26] MEDS: chlordiazePOXIDE HCL 25 MG CAPSULE PO SCH (22:37)
[2017-12-26] MEDS: NICOTINE POLACRILEX 2 MG GUM BUC PRN (22:40)
[2017-12-26 23:27] LABS: URINE APPEARANCE CLOUDY; URINE COLOR AMBER; URINE GLUCOSE (UA) NEGATIVE (NEGATIVE); URINE KETONE NEGATIVE (NEGATIVE); URINE LEUK ESTERASE TRACE (NEGATIVE); URINE NITRITE NEGATIVE (NEGATIVE); URINE PROTEIN 2+ (NEGATIVE); URINE UROBILINOGEN 4.0 E.U/dl mg/dL (0.2-1.0)
[2017-12-26 23:36] LABS: EPI CELLS MANY /HPF (FEW); URINE MUCUS MANY
[2017-12-27] MEDS: chlordiazePOXIDE HCL 25 MG CAPSULE PO SCH ×3 (05:40→17:36)
--- NOTE | 2017-12-27 07:48 | CONSULT ---
[facility] Psychiatric Consult - Data Date of interview: 12/27/17 Admission source: [facility] Identifying data: This is a 37 years old female, single, with ni children, living with boyfriend, unemployed, with no income, with history Schizoaffective disorder, history of psychiatric hospitalizations, with Marijuana, and Alcohol, Nicotine dependence is IS here reporting withdrawal symptoms and seeking detox. Substance Abuse History: Smoking history: Current every day smoker. Have you smoked in the past 12 months: Yes. Aproximately how many cigarettes per day: 20. Cigars Per Day: 0. Hx Chewing Tobacco Use: No. Initiated information on smoking cessation: Yes. 'Breaking Loose' booklet given: 12/26/17. - Substance & Tx. History. Hx Alcohol Use: Yes. Hx Substance Use: Yes. Substance Use Type : Alcohol. Hx Substance Use Treatment: Yes (Last detox [facility] detox [facility] Re[facility] September 2017). - Substances Abused. Alcohol. Route: Oral. Frequency: Daily. Amount used: 2 pints of vodka. Age of first use: 16. Date of Last Use: 12/25/17. Marijuana/Hashish. Route: Smoking. Frequency: 1-3 times last 30 days. Amount used: 1 ayla bag. Age of first use: 16. Date of Last Use: 12/24/17 Medical History: Seizure history, denies any significant medical issues. Psychiatric History: Patient reports to carry Schizoaffective disorder, reports most recent psychoatric admission on at [facility], reports currently stable on Invega Sustenna IM , Unknown dose, last injection on ,patient reports one injection in three months (?). Denies suicidal, homicidal history. Physical/Sexual Abuse/Trauma History: Denies Additional Comment: Invega Sustenna IM , Unknown dose, last injection on 2017,patient reports one injection in three months (?) Mental Status Exam - Mental Status Exam Alert and Oriented to: Person Cognitive Function: Fair Patient Appearance: Unkempt Mood: Suspicious Affect: Mood Congruent Patient Behavior: Cooperative Speech Pattern: Appropriate Voice Loudness: Normal Thought Process: Goal Oriented Thought Disorder: Being Controlled Hallucinations: Denies Suicidal Ideation: Denies Homicidal Ideation: Denies Insight/Judgement: Fair Sleep: Difficulty falling asleep Appetite: Weight loss Muscle strength/Tone: Mild Hypotonicity Gait/Station: Shuffling Additional Comments: Invega Sustenna IM , Unknown dose, last injection on ,patient reports one injection in three months (?) Psychiatric Findings - Problem List ([place] 1, 2,3) (1) Alcohol dependence with uncomplicated withdrawal Current Visit: Yes Status: Chronic (2) Cannabis dependence, uncomplicated Current Visit: Yes Status: Chronic (3) Cocaine dependence Current Visit: Yes Status: Chronic Qualifiers: Substance use status: uncomplicated Qualified Code(s): F14.20 - Cocaine dependence, uncomplicated (4) Nicotine dependence Current Visit: Yes Status: Chronic Qualifiers: Nicotine product type: cigarettes Substance use status: uncomplicated Qualified Code(s): F17.210 - Nicotine dependence, cigarettes, uncomplicated (5) Seizure disorder Current Visit: Yes Status: Chronic (6) Schizoaffective disorder Current Visit: Yes Status: Suspected (7) Bipolar II disorder Current Visit: No Status: Acute (8) Substance induced mood disorder Current Visit: No Status: Acute - Initial Treatment Plan Initial Treatment Plan: Invega Sustenna IM , Unknown dose, last injection on ,patient reports one injection in three months (?)
[2017-12-27] MEDS ORDERED: PRENATAL VITAMINS W/ FOLIC ACID TABLET (FP) PO SCH (10:00)
[2017-12-27] MEDS ORDERED: NICOTINE 14 MG/24 HOURS TOPICAL PATCH TD SCH (10:00)
[2017-12-27] MEDS: NICOTINE POLACRILEX 2 MG GUM BUC PRN ×4 (10:03→17:37)
[2017-12-27 10:56] LABS: HEMATOCRIT 37.9 % (32.4-45.2); HEMOGLOBIN 12.6 GM/dL (10.7-15.3); MCH 34.9 pg (25.7-33.7); MCHC 33.2 g/dl (32.0-36.0); MEAN CELL VOLUME 105.1 fl (80-96); MEAN PLT VOLUME 8.9 fl (7.5-11.1); PLATELET COUNT 130 K/MM3 (134-434); RBC 3.61 M/mm3 (3.60-5.2); RDW 13.6 % (11.6-15.6); WHITE BLOOD COUNT 4.4 K/mm3 (4.0-10.0)
[2017-12-27 11:23] LABS: ALBUMIN 3.2 g/dl (3.4-5.0); ALK PHOS 95 U/L (45-117); ANION GAP 11 MMOL/L (8-16); BILIRUBIN,TOTAL 0.7 mg/dL (0.2-1); BLOOD UREA NITROGEN 3 mg/dL (7-18); CALCIUM 8.5 mg/dL (8.5-10.1); CHLORIDE 109 mmol/L (98-107); CO2 23 mmol/L (21-32); CREATININE 0.5 mg/dL (0.55-1.3); GLUCOSE,RANDOM 91 mg/dL (74-106); POTASSIUM 4.1 mmol/L (3.5-5.1); SGOT/AST 45 U/L (15-37); SGPT/ALT 47 U/L (13-61); SODIUM 142 mmol/L (136-145); TOT PROT 6.3 g/dl (6.4-8.2)
--- NOTE | 2017-12-27 11:49 | PN ---
S CIWA - CIWA Score Nausea/Vomitin-No Nausea/No Vomiting Muscle Tremors: 4-Moderate,w/Arms Extend Anxiety: 4-Mod. Anxious/Guarded Agitation: 4-Moderately Restless Paroxysmal Sweats: 3 Orientation: 0-Oriented Tacttile Disturbances: 0-None Auditory Disturbances: 0-None Visual Disturbances: 0-None Headache: 0-None Present CIWA-Ar Total Score: 15 BHS Progress Note (SOAP) Subjective: shakes sweats agitation anxiety irritable interrupted sleep Objective: 12/27/17 11:48 Vital Signs Temperature 97.0 F L 12/27/17 09:30 Pulse Rate 109 H 12/27/17 09:30 Respiratory Rate 18 12/27/17 09:30 Blood Pressure 107/89 12/27/17 09:30 O2 Sat by Pulse Oximetry (%) Laboratory Tests 12/26/17 12/27/17 12/27/17 22:22 07:00 07:00 WBC 4.4 RBC 3.61 Hgb 12.6 Hct 37.9 MCV 105.1 H MCH 34.9 H MCHC 33.2 RDW 13.6 Plt Count 130 L D MPV 8.9 Sodium 142 Potassium 4.1 Chloride 109 H Carbon Dioxide 23 Anion Gap 11 BUN 3 L Creatinine 0.5 L Creat Clearance w eGFR > 60 Random Glucose 91 Calcium 8.5 Total Bilirubin 0.7 AST 45 H ALT 47 Alkaline Phosphatase 95 Total Protein 6.3 L Albumin 3.2 L Urine Color Nicole Urine Appearance Cloudy Urine pH 7.0 D Ur Specific [place] 1.025 Urine Protein 2+ H Urine Glucose (UA) Negative Urine Ketones Negative Urine Blood Negative Urine Nitrite Negative Urine Bilirubin 2.0 Urine Urobilinogen 4.0 e.u/dl H Ur Leukocyte Esterase Trace Urine WBC (Auto) 14 Urine RBC (Auto) 6 Ur Epithelial Cells Many Urine Mucus Many repeat u/a aaox3 ambulating no acute distress Assessment: 12/27/17 11:49 withdrawal sx Plan: continue detox increase fluids
[2017-12-27] MEDS ORDERED: FLU VACCINE QUAD 60 MCG/0.5 ML (MDV 18-19) IM ONE (12:00)
--- NOTE | 2017-12-27 12:19 | EKG ---
Test Reason : Blood Pressure : / mmHG Vent. Rate : 071 BPM Atrial Rate : 071 BPM P-R Int : 148 ms QRS Dur : 090 ms QT Int : 408 ms P-R-T Axes : 060 025 046 degrees QTc Int : 443 ms NORMAL SINUS RHYTHM NORMAL ECG WHEN COMPARED WITH ECG OF 05-FEB-2017 23:59, T WAVE INVERSION NOW EVIDENT IN ANTERIOR LEADS Confirmed by EFREM NJ MD ([id number]) on 12/27/2017 12:18:57 PM Referred By: Confirmed By:EFREM NJ MD
[2017-12-27 17:23] VITALS: BP 121/71; PULSE 106; TEMP 96.4
--- NOTE | 2017-12-27 20:07 | DS ---
[facility] Detox Discharge Summary Admission Date: 12/26/17 Discharge Date: 12/27/17 - History Additional Comments: Patient is leaving against medical advice. She reports, "I just want to leave , I feel tired staying here" Pertinent Past History: Cocaine dependence, Nicotine dependence, seizure disorder, opioid dependence, cannabis dependence, alcohol dependence - Physical Exam Results Vital Signs: Vital Signs Temperature 96.4 F L 12/27/17 17:23 Pulse Rate 106 H 12/27/17 17:23 Respiratory Rate 16 12/27/17 17:23 Blood Pressure 121/71 12/27/17 17:23 O2 Sat by Pulse Oximetry (%) Laboratory Last Values WBC 4.4 K/mm3 (4.0-10.0) 12/27/17 07:00 RBC 3.61 M/mm3 (3.60-5.2) 12/27/17 07:00 Hgb 12.6 GM/dL (10.7-15.3) 12/27/17 07:00 Hct 37.9 % (32.4-45.2) 12/27/17 07:00 MCV 105.1 fl (80-96) H 12/27/17 07:00 MCH 34.9 pg (25.7-33.7) H 12/27/17 07:00 MCHC 33.2 g/dl (32.0-36.0) 12/27/17 07:00 RDW 13.6 % (11.6-15.6) 12/27/17 07:00 Plt Count 130 K/MM3 (134-434) L D 12/27/17 07:00 MPV 8.9 fl (7.5-11.1) 12/27/17 07:00 Sodium 142 mmol/L (136-145) 12/27/17 07:00 Potassium 4.1 mmol/L (3.5-5.1) 12/27/17 07:00 Chloride 109 mmol/L (98-107) H 12/27/17 07:00 Carbon Dioxide 23 mmol/L (21-32) 12/27/17 07:00 Anion Gap 11 MMOL/L (8-16) 12/27/17 07:00 BUN 3 mg/dL (7-18) L 12/27/17 07:00 Creatinine 0.5 mg/dL (0.55-1.3) L 12/27/17 07:00 Creat Clearance w eGFR > 60 (>60) 12/27/17 07:00 Random Glucose 91 mg/dL (74-106) 12/27/17 07:00 Calcium 8.5 mg/dL (8.5-10.1) 12/27/17 07:00 Total Bilirubin 0.7 mg/dL (0.2-1) 12/27/17 07:00 AST 45 U/L (15-37) H 12/27/17 07:00 ALT 47 U/L (13-61) 12/27/17 07:00 Alkaline Phosphatase 95 U/L (45-117) 12/27/17 07:00 Total Protein 6.3 g/dl (6.4-8.2) L 12/27/17 07:00 Albumin 3.2 g/dl (3.4-5.0) L 12/27/17 07:00 Urine Color Nicole 12/26/17:22 Urine Appearance Cloudy 12/26/17 22: Urine pH 7.0 (5.0-8.0) D 12/26/17 22:22 Ur Specific [place] 1.025 (1.010-1.035) 12/26/17 22:22 Urine Protein 2+ (NEGATIVE) H 12/26/17 22:22 Urine Glucose (UA) Negative (NEGATIVE) 12/26/17 22:22 Urine Ketones Negative (NEGATIVE) 12/26/17 22:22 Urine Blood Negative (NEGATIVE) 12/26/17 22:22 Urine Nitrite Negative (NEGATIVE) 12/26/17 22:22 Urine Bilirubin 2.0 (<2.0 mg/dL) 12/26/17 22: Urine Urobilinogen 4.0 e.u/dl mg/dL (0.2-1.0) H 12/26/17 22:22 Ur Leukocyte Esterase Trace (NEGATIVE) 12/26/17 22:22 Urine WBC (Auto) 14 /hpf (3-5) 12/26/17 22:22 Urine RBC (Auto) 6 /hpf (0-3) 12/26/17 22:22 Ur Epithelial Cells Many /HPF (FEW) 12/26/17 22:22 Urine Mucus Many 12/26/17 22:22 RPR Titer Nonreactive (NONREACTIVE) 12/27/17 07:00 Pertinent Admission Physical Exam Findings: Alcohol withdrawal symptoms - Medication Discharge Medications: Ambulatory Orders NK [No Known Home Medication] 01/01/17 - Diagnosis (1) Alcohol dependence with uncomplicated withdrawal Current Visit: Yes Status: Chronic (2) Cocaine dependence Current Visit: No Status: Chronic Qualifiers: Substance use status: uncomplicated Qualified Code(s): F14.20 - Cocaine dependence, uncomplicated (3) Nicotine dependence Current Visit: No Status: Chronic Qualifiers: Nicotine product type: cigarettes Substance use status: uncomplicated Qualified Code(s): F17.210 - Nicotine dependence, cigarettes, uncomplicated (4) Seizure disorder Current Visit: No Status: Chronic (5) Cannabis dependence, uncomplicated Current Visit: Yes Status: Chronic - AMA Did Patient Leave Against Medical Advice: Yes
[2017-12-27] MEDS ORDERED: chlordiazePOXIDE HCL 25 MG CAPSULE PO SCH (23:00)
[2017-12-28] MEDS ORDERED: chlordiazePOXIDE 5 MG CAPSULE PO SCH (23:00)
[2017-12-29] MEDS ORDERED: chlordiazePOXIDE HCL 10 MG CAPSULE PO SCH (23:00)
== END 2017-12-27 19:55 | disposition left against medical advice (07) | DRG 770 ==
LOC: YASAS 13:26 → Y6N 16:34
PROC: HZ2ZZZZ Detoxification Services for Substance Abuse Treatment (ICD-10-PCS; principal; 2017-12-26)
DX: F10.230 Alcohol dependence with withdrawal, uncomplicated (principal); F14.20 Cocaine dependence, uncomplicated; F12.20 Cannabis dependence, uncomplicated; F17.210 Nicotine dependence, cigarettes, uncomplicated; F31.81 Bipolar II disorder; F25.9 Schizoaffective disorder, unspecified; F19.24 Other psychoactive substance dependence with psychoactive substance-induced mood disorder; F99 Mental disorder, not otherwise specified; G40.909 Epilepsy, unspecified, not intractable, without status epilepticus
CPT/HCPCS: 36415; 80053; 81003; 81015; 85027; 86593; 90688; 93005; 93010; G0008

== ENCOUNTER 2018-08-16 12:12 | Inpatient (IN) | payer OTHER ==
[2018-08-16 20:54] VITALS: BMI 20.1
--- NOTE | 2018-08-16 22:01 | HP ---
CIWA Score Nausea/Vomitin Muscle Tremors: 5 Anxiety: 4-Mod. Anxious/Guarded Agitation: 4-Moderately Restless Paroxysmal Sweats: 3 Orientation: 0-Oriented Tacttile Disturbances: 0-None Auditory Disturbances: 2-Mild Harshness/Frighten Visual Disturbances: 2-Mild Sensitivity Headache: 0-None Present CIWA-Ar Total Score: 23 - Admission Criteria [facility] Guidelines: Admission for Medically Managed Detox: Requires at least one of the followin. CIWA greater than 12 2. Seizures within the past 24 hours 3. Delirium tremens within the past 24 hours 4. Hallucinations within the past 24 hours 5. Acute intervention needed for co occurring medical disorder 6. Acute intervention needed for co occurring psychiatric disorder 7. Severe withdrawal that cannot be handled at a lower level of care (continued vomiting, continued diarrhea, abnormal vital signs) requiring intravenous medication and/or fluids 8. Patient presents the following: CIWA greater than 12 Admission Criteria Met: Admission criteria met Admission ROS [facility] Chief Complaint: C/O WITHDRAWAL SX'S Allergies/Adverse Reactions: Allergies Allergy/AdvReac Type Severity Reaction Status Date / Time Penicillins Allergy Verified 08/16/18 20:47 History of Present Illness: 37 Y.O. WITH ALCHOLISM HERE FOR DETOX. [facility]O IS SELF REFERRED. LAST HERE 2018. PRESENTS TODAY WITH C/O WITHDRAWAL SX'S. CIWA 23. SHE REPORTS BEING AT [facility] 1 DAY AGO FOR INTOXICATION AND WAS HYDRATED AND GIVEN A MEDICATION TO HELP. SHE WAS THEN DC A FEW HOURS AGO. CLIENT REPORTS SHE IS A HEAVY DRINKER. WAKES UP IN WITHDRAWAL NEEDING [employer] S[employer] DRINK. CLIENT REPORTS LAST DRANK ABOUT A HALF AN HOUR AGO TO HELP WITH WITHDRAWAL SX'S. HX/O SEIZURES LAST BEING 3 MONTHS AGO , DENIES BLACKOUTS, DRUG OVERDOSE, DT'S. REPORTS FREQUENT FALLS. REPORTS LONGEST CLEAN TIME 8 YEARS RELAPSING IN 2004. NO CLEAN TIME SINCE. HOMELESS, UNEMPLOYED, DENIES LEGALS Exam Limitations: No Limitations, Intoxication (BUT IS A/O X3 AND COOPERATIVE) - Ebola screening Have you traveled outside of the country in the last 21 days: No (N) Have you had contact with anyone from an Ebola affected area: No Do you have a fever: No - Review of Systems Constitutional: Chills, Loss of Appetite, Night Sweats, Changes in sleep, Unintentional Wgt. Loss EENT: reports: Eye Pain (LEFT EYE) Respiratory: reports: Shortness of Breath Cardiac: reports: No Symptoms Reported GI: reports: Diarrhea, Nausea, Poor Appetite, Poor Fluid Intake, Vomiting, Abdominal cramping : reports: No Symptoms Reported Musculoskeletal: reports: Back Pain (CHRONIC) Integumentary: reports: Flushing, Sweating Neuro: reports: Tremors Endocrine: reports: No Symptoms Reported Hematology: reports: No Symptoms Reported Psychiatric: reports: Orientated x3, Anxious, Depressed Other Systems: Reviewed and Negative Patient History - Patient Medical History Hx Anemia: No Hx Asthma: No Hx Chronic Obstructive Pulmonary Disease (COPD): No Hx Cancer: No Hx Cardiac Disorders: No Hx Congestive Heart Failure: No Hx Hypertension: No Hx Hypercholesterolemia: No Hx Pacemaker: No HX Cerebrovascular Accident: No Hx Seizures: Yes Hx Dementia: No Hx Diabetes: No Hx Gastrointestinal Disorders: No Hx Liver Disease: No Hx Genitourinary Disorders: No Hx Sexually Transmitted Disorders: No Hx Renal Disease (ESRD): No Hx Thyroid Disease: No Hx Human Immunodeficiency Virus (HIV): No Hx Hepatitis C: No Hx Depression: No Hx Suicide Attempt: No Hx Bipolar Disorder: No Hx Schizophrenia: No Other Medical History: SCHIZOAFFECTIVE/ PTSD - Patient Surgical History Past Surgical History: No Hx Neurologic Surgery: No Hx Cataract Extraction: No Hx Cardiac Surgery: No Hx Lung Surgery: No Hx Breast Surgery: No Hx Breast Biopsy: No Hx Abdominal Surgery: No Hx Appendectomy: No Hx Cholecystectomy: No Hx Genitourinary Surgery: No Hx Section: No Hx Orthopedic Surgery: No Hx Hysterectomy: No Anesthesia Reaction: No - PPD History Previous Implant?: Yes Documented Results: Negative w/proof Implanted On Prior [facility] Admission?: Yes Date: 12/28/17 Results: 0MM PPD to be Administered?: No - Reproductive History Patient is a Female of Child Bearing Age (11 -55 yrs old): Yes Last Menstrual Period: 02/01/17 LMP comment: AMENORRHEA DUE TO INVEGA INJECTIONS Patient : No (NEG [facility]) - Smoking Cessation Smoking history: Current every day smoker Have you smoked in the past 12 months: Yes Aproximately how many cigarettes per day: 20 Cigars Per Day: 0 Hx Chewing Tobacco Use: No Initiated information on smoking cessation: Yes 'Breaking Loose' booklet given: 08/16/18 - Substance & Tx. History Hx Alcohol Use: Yes Hx Substance Use: Yes Substance Use Type: Alcohol, Cocaine, Marijuana Hx Substance Use Treatment: Yes ([facility]) - Substances abused Alcohol Other (specify): VODKA/BEER Substance route: Oral Frequency: Daily Amount used: 1PINT/ 3 22 OZ Age of first use: 16 Date of last use: 08/16/18 Crack Substance route: Smoking Frequency: Daily Amount used: 10 GRAMS Age of first use: 36 Date of last use: 08/14/18 Marijuana/Hashish Substance route: Smoking Frequency: Daily Amount used: 1 BLUNT Age of first use: 14 Date of last use: 08/16/18 Family Disease History - Family Disease History Family Disease History: CA: Mother, Other: Mother Admission Physical Exam [facility] - Vital Signs Vital Signs: Vital Signs - 24 hr 08/16/18 20:47 Temperature 98.2 F Pulse Rate 99 H Respiratory 18 Rate Blood Pressure 104/68 - Physical General Appearance: Yes: Moderate Distress, Thin, Tremorous, Irritable, Anxious , Other (MALODUROUS, UNKEPT) HEENTM: Yes: EOMI, Normal Voice, DIETER, Pharynx Normal, Other (LEFT EYE APPEARS TO BE WITH RESOLVING ECCHYMOSIS. CLIENT DOES NOT RECALL INJURING IT. NO PERIORBITAL TENDERNESS) Respiratory: Yes: Chest Non-Tender, No Respiratory Distress, No Accessory Muscle Use, Other (COARSE BREATH SOUNDS) Neck: Yes: No masses,lesions,Nodules, Supple, Trachea in good position Breast: Yes: Breast Exam Deferred Cardiology: Yes: Regular Rhythm, Regular Rate, S1, S2 Abdominal: Yes: Non Tender, Flat, Soft, Increased Bowel Sounds Genitourinary: Yes: Within Normal Limits Back: Yes: Normal Inspection Musculoskeletal: Yes: full range of Motion, Joint Stiffness (C/O PAIN), Other ( UNSTEADY AGIT) Extremities: Yes: Normal Capillary Refill, Normal Range of Motion, Non-Tender, Tremors Neurological: Yes: Alert, Motor Strength 5/5, Depressed Affect Integumentary: Yes: Dry, Warm, Other (FLUSHED) Lymphatic: Yes: Within Normal Limits - Diagnostic (1) Alcohol withdrawal seizure Current Visit: Yes Status: Chronic Qualifiers: Complication of substance-induced condition: uncomplicated Qualified Code(s ): F10.230 - Alcohol dependence with withdrawal, uncomplicated (2) Substance induced mood disorder Current Visit: Yes Status: Suspected (3) Alcohol dependence with uncomplicated withdrawal Current Visit: Yes Status: Acute (4) Cannabis dependence, uncomplicated Current Visit: Yes Status: Acute (5) Cocaine dependence Current Visit: Yes Status: Acute Qualifiers: Substance use status: uncomplicated Qualified Code(s): F14.20 - Cocaine dependence, uncomplicated (6) Nicotine dependence Current Visit: Yes Status: Chronic Qualifiers: Nicotine product type: cigarettes Substance use status: uncomplicated Qualified Code(s): F17.210 - Nicotine dependence, cigarettes, uncomplicated (7) Schizoaffective disorder Current Visit: Yes Status: Suspected Cleared for Admission S - Detox or Rehab S Level of Care: Medically Managed Detox Regimen/Protocol: Librium Claeared for Rehab Admission: No Breathalyzer - Breathalyzer Breathalyzer: 0.177 Urine Drug Screen - Test Device Lot number: [id number] Expiration date: 05/02/19 - Control Is test valid?: Yes - Results Drug screen NEGATIVE: No Urine drug screen results: THC-Marijuana, MICHAEL-Cocaine, BZO-Benzodiazepines Inpatient Rehab Admission - Rehab Decision to Admit Inpatient rehab admission?: No
[2018-08-16] MEDS ORDERED: MAGNESIUM CITRATE 300 ML BOTTLE PO PRN (22:08)
[2018-08-16] MEDS ORDERED: DICYCLOMINE HCL 10 MG CAPSULE PO PRN (22:08)
[2018-08-16] MEDS ORDERED: P-EPHED 60MG/TRIPROLIDI 2.5MG TABLET PO PRN (22:08)
[2018-08-16] MEDS ORDERED: IBUPROFEN 400 MG TABLET (FP) PO PRN (22:08)
[2018-08-16] MEDS ORDERED: ACETAMINOPHEN 325 MG TABLET (FP) PO PRN ×2 (22:08)
[2018-08-16] MEDS ORDERED: MELATONIN 5 MG TABLETS PO PRN (22:08)
[2018-08-16] MEDS ORDERED: METHOCARBAMOL 500 MG TABLET PO PRN (22:08)
[2018-08-16] MEDS ORDERED: MAG HYDROX/AL HYDROX/SIMETH 30 ML UNIT-DOSE CUP PO PRN (22:08)
[2018-08-16] MEDS ORDERED: BISMUTH SUBSALICYLATE 524 MG/30 ML UD PO PRN (22:08)
[2018-08-16] MEDS ORDERED: hydrOXYzine PAMOATE 25 MG CAPSULE (FP) PO PRN (22:08)
[2018-08-16] MEDS ORDERED: chlordiazePOXIDE HCL 25 MG CAPSULE PO PRN (22:08)
[2018-08-16] MEDS ORDERED: ONDANSETRON *ODT* 4 MG TABLET SL PRN (22:08)
[2018-08-16] MEDS ORDERED: guaiFENesin 200 MG/10 ML 10 ML UNIT-DOSE CUPS PO PRN (22:08)
[2018-08-16] MEDS ORDERED: MAGNESIUM HYDROX 2400MG/30ML ORAL SUSPENSION 30 ML CUP PO PRN (22:08)
[2018-08-16] MEDS ORDERED: MENTHOL/PHENOL 1 EACH UD MM PRN (22:08)
[2018-08-16] MEDS: chlordiazePOXIDE HCL 25 MG CAPSULE PO SCH (23:27)
[2018-08-16] MEDS: NICOTINE POLACRILEX 2 MG GUM BUC PRN (23:30)
[2018-08-17] MEDS: chlordiazePOXIDE HCL 25 MG CAPSULE PO SCH ×3 (05:51→17:47)
[2018-08-17] MEDS ORDERED: NICOTINE 21 MG/24 HOURS TOPICAL PATCH TD SCH (10:00)
[2018-08-17] MEDS ORDERED: PRENATAL VITAMINS W/ FOLIC ACID TABLET (FP) PO SCH (10:00)
[2018-08-17 10:45] LABS: ALBUMIN 3.4 g/dl (3.4-5.0); BILIRUBIN,TOTAL 0.4 mg/dL (0.2-1); BLOOD UREA NITROGEN 6.4 mg/dL (7-18); CREATININE 0.6 mg/dL (0.55-1.3); POTASSIUM 3.9 mmol/L (3.5-5.1); TOT PROT 6.7 g/dl (6.4-8.2)
[2018-08-17] MEDS: NICOTINE POLACRILEX 2 MG GUM BUC PRN ×3 (10:47→17:49)
[2018-08-17 11:06] LABS: PH,URINE 7.5 (5.0-8.0); URINE APPEARANCE CLEAR; URINE BILIRUBIN NEGATIVE (NEGATIVE); URINE COLOR YELLOW; URINE GLUCOSE (UA) NEGATIVE (NEGATIVE); URINE KETONE NEGATIVE (NEGATIVE); URINE LEUK ESTERASE NEGATIVE (NEGATIVE); URINE NITRITE NEGATIVE (NEGATIVE); URINE PROTEIN NEGATIVE (NEGATIVE); URINE UROBILINOGEN 0.2 mg/dL (0.2-1.0)
[2018-08-17 11:09] LABS: HEMATOCRIT 37.1 % (32.4-45.2); HEMOGLOBIN 12.4 GM/dL (10.7-15.3); MCH 34.9 pg (25.7-33.7); MCHC 33.6 g/dl (32.0-36.0); MEAN CELL VOLUME 103.9 fl (80-96); MEAN PLT VOLUME 8.9 fl (7.5-11.1); RBC 3.57 M/mm3 (3.60-5.2); RDW 13.9 % (11.6-15.6); WHITE BLOOD COUNT 3.6 K/mm3 (4.0-10.0)
[2018-08-17 11:31] LABS: PLATELET COUNT 116 K/MM3 (134-434)
--- NOTE | 2018-08-17 13:54 | PN ---
S CIWA - CIWA Score Nausea/Vomitin-No Nausea/No Vomiting Muscle Tremors: 2 Anxiety: 3 Agitation: 2 Paroxysmal Sweats: 3 Orientation: 0-Oriented Tacttile Disturbances: 0-None Auditory Disturbances: 0-None Visual Disturbances: 0-None Headache: 2-Mild CIWA-Ar Total Score: 12 S Progress Note (SOAP) Subjective: c/o sweats, headache, shakes, and anxiety. Objective: 08/17/18 13:53 Vital Signs 08/17/18 08/17/18 08/17/18 06:00 06:29 06:30 Temperature 97.0 F L Pulse Rate 69 62 62 Respiratory 18 18 18 Rate Blood Pressure 130/83 08/17/18 08/17/18 08/17/18 07:00 07:30 08:00 Temperature Pulse Rate 65 65 59 L Respiratory 18 18 18 Rate Blood Pressure 08/17/18 08/17/18 08/17/18 08:30 09:00 09:30 Temperature Pulse Rate 60 58 L 55 L Respiratory 18 18 Rate Blood Pressure 08/17/18 08/17/18 08/17/18 09:46 10:00 10:30 Temperature 98.6 F Pulse Rate 55 L 58 L 60 Respiratory 18 18 18 Rate Blood Pressure 128/81 08/17/18 08/17/18 08/17/18 11:00 11:30 12:00 Temperature Pulse Rate 56 L 67 72 Respiratory 18 18 18 Rate Blood Pressure 08/17/18 12:30 Temperature Pulse Rate 70 Respiratory 18 Rate Blood Pressure Lab Results WBC 3.6 K/mm3 (4.0-10.0) L 08/17/18 07:40 RBC 3.57 M/mm3 (3.60-5.2) L 08/17/18 07:40 Hgb 12.4 GM/dL (10.7-15.3) 08/17/18 07:40 Hct 37.1 % (32.4-45.2) 08/17/18 07:40 MCV 103.9 fl (80-96) H 08/17/18 07:40 MCHC 33.6 g/dl (32.0-36.0) 08/17/18 07:40 RDW 13.9 % (11.6-15.6) 08/17/18 07:40 Plt Count 116 K/MM3 (134-434) L 08/17/18 07:40 Sodium 139 mmol/L (136-145) 08/17/18 07:40 Potassium 3.9 mmol/L (3.5-5.1) 08/17/18 07:40 Chloride 105 mmol/L (98-107) 08/17/18 07:40 Carbon Dioxide 28 mmol/L (21-32) 08/17/18 07:40 Anion Gap 6 MMOL/L (8-16) L 08/17/18 07:40 BUN 6.4 mg/dL (7-18) L 08/17/18 07:40 Creatinine 0.6 mg/dL (0.55-1.3) 08/17/18 07:40 Random Glucose 91 mg/dL (74-106) 08/17/18 07:40 Calcium 9.0 mg/dL (8.5-10.1) 08/17/18 07:40 Labs reviewed. Assessment: 08/17/18 13:55 AOX3, in no acute distress Full ROM, ambulating in the unit. Withdrawal symptoms. Plan: continue detox. increase fluids.
--- NOTE | 2018-08-17 14:43 | CONSULT ---
[facility] Psychiatric Consult - Data Date of interview: 08/17/18 Admission source: [facility] Identifying data: This is one of multiple admissions to [facility] for this 37 y/ o female self-referred for detoxification (cannabis, alcohol, crack/ cocaine). Inerviewed at [address] [place] [address]. Patient is single without children, homeless, unemployed and financially supported by friends. Substance Abuse History: Smoking history: Current every day smoker. Have you smoked in the past 12 months: Yes. Aproximately how many cigarettes per day: 20. Cigars Per Day: 0. Hx Chewing Tobacco Use: No. Initiated information on smoking cessation: Yes. 'Breaking Loose' booklet given: 08/16/18. - Substance & Tx. History. Hx Alcohol Use: Yes. Hx Substance Use: Yes. Substance Use Type : Alcohol, Cocaine, Marijuana. Hx Substance Use Treatment: Yes ([facility]). - Substances abused. Alcohol. Other (specify): VODKA/BEER. Substance route: Oral. Frequency: Daily. Amount used: 1PINT/ 3 22 OZ. Age of first use: 16. Date of last use: 08/16/18. Crack. Substance route: Smoking. Frequency: Daily. Amount used: 10 GRAMS. Age of first use: 36. Date of last use: . Marijuana/Hashish. Substance route: Smoking. Frequency: Daily. Amount used: 1 BLUNT. Age of first use: 14. Date of last use: 08/16/18 Medical History: Patient endorses good general health. Distant history of withdrawal-related seizures. Psychiatric History: Patient admits to " a couple " of psychiatric hospitalizations ([facility], [facility]- [facility]). Diagnosed with Schizoaffective Disorder and PTSD. Ms Whitman reports aftercare follow-up by the [facility] ACT team II ([phone]). Kept stable on a regimen of Invega IM (dose not recalled by the patient). Injection is due by the beginning of September (as per self-report). No longer on lithium. Patient denies history of suicide attempts. Physical/Sexual Abuse/Trauma History: Patient denies history of abuse. Additional Comment: Urine drug screen results: THC-Marijuana, MICHAEL-Cocaine, BZO- Benzodiazepines. Noted. Mental Status Exam - Mental Status Exam Alert and Oriented to: Time, Place, Person Cognitive Function: Good Patient Appearance: Unkempt, Disheveled (thin habitus, short stature) Mood: Nervous, Withdrawn Affect: Mood Congruent, Constricted Patient Behavior: Fatigued, Appropriate, Cooperative Speech Pattern: Clear, Appropriate Voice Loudness: Normal Thought Process: Intact, Goal Oriented Thought Disorder: Not Present Hallucinations: Denies Suicidal Ideation: Denies Homicidal Ideation: Denies Insight/Judgement: Poor Sleep: Well Appetite: Good Gait/Station: Normal Psychiatric Findings - Problem List ([facility] 1, 2,3) (1) Alcohol dependence with uncomplicated withdrawal Current Visit: Yes Status: Acute (2) Cannabis dependence, uncomplicated Current Visit: Yes Status: Chronic (3) Cocaine dependence Current Visit: Yes Status: Chronic Qualifiers: Substance use status: uncomplicated Qualified Code(s): F14.20 - Cocaine dependence, uncomplicated (4) Nicotine dependence Current Visit: Yes Status: Chronic Qualifiers: Nicotine product type: cigarettes Substance use status: uncomplicated Qualified Code(s): F17.210 - Nicotine dependence, cigarettes, uncomplicated (5) Substance induced mood disorder Current Visit: Yes Status: Chronic (6) Schizoaffective disorder Current Visit: Yes Status: Chronic - Initial Treatment Plan Initial Treatment Plan: Psychoeducation. Sleep hygiene. Detoxification in progress. AA meetings. Relapse prevention (MAT) : discussed in this session. Groups. Will make another attempt at contacting the [facility] ACT team II ( call made at [phone] : offices closed) for clarification of Invega dose and date of last IM injection. Support. Motivational counseling. Observation.
[2018-08-17 21:55] VITALS: BP 114/82; TEMP 99.4
[2018-08-17] MEDS ORDERED: THIAMINE HCL 100 MG TABLET (FP) PO SCH (22:00)
[2018-08-17 22:55] VITALS: PULSE 82
[2018-08-17] MEDS ORDERED: chlordiazePOXIDE HCL 25 MG CAPSULE PO SCH (23:00)
--- NOTE | 2018-08-17 23:18 | DS ---
[facility] Detox Discharge Summary Admission Date: 08/16/18 Discharge Date: 08/17/18 - History Present History: Alcohol Dependence Additional Comments: CLIENT SIGNED OUT AMA. STATES SHE MISSES HER BOYFRIEND. SHE IS NOT RECEPTIVE TO ANY DISCUSSION WITH THE PROVIDER. RISK ABOUT ABRUPTING TXMENT, SEIZURE AND POSSIBLE DISCUSSED. CLIENT ACCEPTS RISK. LEFT FACILITY A/O X3 STABLE. Pertinent Past History: NICOTINE DEP SEIZURE D/O - Physical Exam Results Vital Signs: Vital Signs Temperature 99.4 F 08/17/18 21:55 Pulse Rate 82 08/17/18 22:30 Respiratory Rate 18 08/17/18 22:30 Blood Pressure 114/82 08/17/18 21:55 O2 Sat by Pulse Oximetry (%) Pertinent Admission Physical Exam Findings: WITHDRAWAL SX'S Laboratory Tests 08/17/18 08/17/18 08/17/18 07:40 07:40 07:40 WBC 3.6 L RBC 3.57 L Hgb 12.4 Hct 37.1 MCV 103.9 H MCH 34.9 H MCHC 33.6 RDW 13.9 Plt Count 116 L MPV 8.9 Sodium 139 Potassium 3.9 Chloride 105 Carbon Dioxide 28 Anion Gap 6 L BUN 6.4 L Creatinine 0.6 Est GFR (CKD-EPI)AfAm 135.91 Est GFR (CKD-EPI)NonAf 117.26 Random Glucose 91 Calcium 9.0 Total Bilirubin 0.4 AST 86 H ALT 62 H Alkaline Phosphatase 85 Total Protein 6.7 Albumin 3.4 Urine Color Urine Appearance Urine pH Ur Specific [place] Urine Protein Urine Glucose (UA) Urine Ketones Urine Blood Urine Nitrite Urine Bilirubin Urine Urobilinogen Ur Leukocyte Esterase RPR Titer Nonreactive 08/17/18 09:00 WBC RBC Hgb Hct MCV MCH MCHC RDW Plt Count MPV Sodium Potassium Chloride Carbon Dioxide Anion Gap BUN Creatinine Est GFR (CKD-EPI)AfAm Est GFR (CKD-EPI)NonAf Random Glucose Calcium Total Bilirubin AST ALT Alkaline Phosphatase Total Protein Albumin Urine Color Yellow Urine Appearance Clear Urine pH 7.5 Ur Specific [place] 1.002 L Urine Protein Negative Urine Glucose (UA) Negative Urine Ketones Negative Urine Blood Negative Urine Nitrite Negative Urine Bilirubin Negative Urine Urobilinogen 0.2 Ur Leukocyte Esterase Negative RPR Titer - Treatment Hospital Course: Discharged Condition Good Patient has Accepted a Rehab Referral to: [facility] - Medication Discharge Medications: Ambulatory Orders NK [No Known Home Medication] 01/01/17 - Diagnosis (1) Alcohol withdrawal seizure Status: Chronic Qualifiers: Complication of substance-induced condition: uncomplicated Qualified Code(s ): F10.230 - Alcohol dependence with withdrawal, uncomplicated (2) Substance induced mood disorder Status: Chronic (3) Alcohol dependence with uncomplicated withdrawal Status: Acute (4) Cannabis dependence, uncomplicated Status: Chronic (5) Cocaine dependence Status: Chronic Qualifiers: Substance use status: uncomplicated Qualified Code(s): F14.20 - Cocaine dependence, uncomplicated (6) Nicotine dependence Status: Chronic Qualifiers: Nicotine product type: cigarettes Substance use status: uncomplicated Qualified Code(s): F17.210 - Nicotine dependence, cigarettes, uncomplicated (7) Schizoaffective disorder Status: Chronic - AMA Did Patient Leave Against Medical Advice: Yes
[2018-08-18] MEDS ORDERED: chlordiazePOXIDE HCL 10 MG CAPSULE PO PRN (23:00)
[2018-08-18] MEDS ORDERED: chlordiazePOXIDE HCL 10 MG CAPSULE PO SCH (23:00)
[2018-08-19] MEDS ORDERED: chlordiazePOXIDE HCL 10 MG CAPSULE PO SCH (23:00)
== END 2018-08-17 22:57 | disposition left against medical advice (07) | DRG 770 ==
LOC: YASAS 12:12 → Y3N 22:29
PROVIDERS: ADMIT Surgery; ATTEND Surgery
PROC: HZ2ZZZZ Detoxification Services for Substance Abuse Treatment (ICD-10-PCS; principal; 2018-08-16)
DX: F10.230 Alcohol dependence with withdrawal, uncomplicated (principal); F14.20 Cocaine dependence, uncomplicated; F12.20 Cannabis dependence, uncomplicated; F17.210 Nicotine dependence, cigarettes, uncomplicated; F19.24 Other psychoactive substance dependence with psychoactive substance-induced mood disorder; F25.9 Schizoaffective disorder, unspecified; Z86.69 Personal history of other diseases of the nervous system and sense organs; Z88.0 Allergy status to penicillin
CPT/HCPCS: 36415; 80053; 81003; 81025; 85027; 86593

== ENCOUNTER 2018-08-30 12:45 | Inpatient (IN) | payer OTHER ==
[2018-08-30 15:01] VITALS: BMI 19.3
--- NOTE | 2018-08-30 17:54 | HP ---
CIWA Score Nausea/Vomitin Muscle Tremors: 2 Anxiety: 4-Mod. Anxious/Guarded Agitation: 4-Moderately Restless Paroxysmal Sweats: 2 Orientation: 1-Uncertain about Date Tacttile Disturbances: 2-Mild Itch/Numbness/Burn Auditory Disturbances: 2-Mild Harshness/Frighten Visual Disturbances: 2-Mild Sensitivity Headache: 2-Mild CIWA-Ar Total Score: 23 - Admission Criteria OASAS Guidelines: Admission for Medically Managed Detox: Requires at least one of the followin. CIWA greater than 12 2. Seizures within the past 24 hours 3. Delirium tremens within the past 24 hours 4. Hallucinations within the past 24 hours 5. Acute intervention needed for co occurring medical disorder 6. Acute intervention needed for co occurring psychiatric disorder 7. Severe withdrawal that cannot be handled at a lower level of care (continued vomiting, continued diarrhea, abnormal vital signs) requiring intravenous medication and/or fluids 8. Admission ROS S - HPI Allergies/Adverse Reactions: Allergies Allergy/AdvReac Type Severity Reaction Status Date / Time Penicillins Allergy Verified 08/30/18 14:48 History of Present Illness: pt here requesting detox from etoh use , reports 3 bottles 1/2 pint liquor / day , starts drinking in the mornings, + tremors if not drinking , reports withdrawal seizures , falls while intoxicated most recently yesterday hit r leg and right arm , denies blackouts , latest use today , current shorty 0.264 , pt is poor historian 2/2 intoxication . pmhx : denies psych : sad on Invega , latest 2 mo ago , requesting Abilify lmp " i don't even know " upt neg cocaine : 20 $ - 1 gr daily tobacco : daily cannabis - daily shx : homeless , finances habit through prostitution Exam Limitations: Clinical Condition - Ebola screening Have you traveled outside of the country in the last 21 days: No Have you had contact with anyone from an Ebola affected area: No Do you have a fever: No - Review of Systems Constitutional: Loss of Appetite EENT: reports: Nose Congestion Respiratory: reports: No Symptoms reported Cardiac: reports: No Symptoms Reported GI: reports: Diarrhea, Poor Appetite, Vomiting : reports: No Symptoms Reported Musculoskeletal: reports: Joint Pain (r shoulder since fall yesterday) Integumentary: reports: Bruising (r leg after fall yesterday) Neuro: reports: Seizure, Tingling, Tremors Endocrine: reports: See HPI Psychiatric: reports: Agitated, Anxious, Disorientated Patient History - Patient Medical History Hx Anemia: No Hx Asthma: No Hx Chronic Obstructive Pulmonary Disease (COPD): No Hx Cancer: No Hx Cardiac Disorders: No Hx Congestive Heart Failure: No Hx Hypertension: No Hx Hypercholesterolemia: No Hx Pacemaker: No HX Cerebrovascular Accident: No Hx Seizures: Yes Hx Dementia: No Hx Diabetes: No Hx Gastrointestinal Disorders: No Hx Liver Disease: No Hx Genitourinary Disorders: No Hx Sexually Transmitted Disorders: No Hx Renal Disease (ESRD): No Hx Thyroid Disease: No Hx Human Immunodeficiency Virus (HIV): No Hx Hepatitis C: No Hx Depression: No Hx Suicide Attempt: No Hx Bipolar Disorder: No Hx Schizophrenia: No - Patient Surgical History Past Surgical History: No Hx Neurologic Surgery: No Hx Cataract Extraction: No Hx Cardiac Surgery: No Hx Lung Surgery: No Hx Breast Surgery: No Hx Breast Biopsy: No Hx Abdominal Surgery: No Hx Appendectomy: No Hx Cholecystectomy: No Hx Genitourinary Surgery: No Hx Section: No Hx Orthopedic Surgery: No Hx Hysterectomy: No Anesthesia Reaction: No - PPD History Date: 12/28/17 Results: 0MM - Reproductive History Last Menstrual Period: 02/01/17 - Smoking Cessation Smoking history: Current every day smoker Have you smoked in the past 12 months: Yes Aproximately how many cigarettes per day: 20 Cigars Per Day: 0 Hx Chewing Tobacco Use: No Initiated information on smoking cessation: No - Substances abused Alcohol Other (specify): VODKA/BEER Substance route: Oral Frequency: Daily Amount used: 15 oz beer, 3.5 quartz vodka Age of first use: 15 Date of last use: 08/30/18 Crack Substance route: Smoking Frequency: Daily Amount used: 20 grams Age of first use: 21 Date of last use: 08/29/18 Marijuana/Hashish Substance route: Smoking Frequency: Daily Amount used: 5 Blunts Age of first use: 20 Date of last use: 08/29/18 Family Disease History - Family Disease History Family Disease History: CA: Mother, Other: Mother Admission Physical Exam BHS - Vital Signs Vital Signs: Vital Signs - 24 hr 08/30/18 08/30/18 14:52 17:40 Temperature 97.1 F L 97.1 F L Pulse Rate 68 68 Respiratory 16 16 Rate Blood Pressure 107/69 107/69 - Physical General Appearance: Yes: Disheveled, Moderate Distress, Intoxicated, Tremorous, Irritable, Anxious HEENTM: Yes: Normocephalic, Normal Voice Respiratory: Yes: Normal Breath Sounds, No Respiratory Distress, No Accessory Muscle Use Neck: Yes: No masses,lesions,Nodules, Trachea in good position Cardiology: Yes: Regular Rhythm, Regular Rate, S1, S2 Abdominal: Yes: Non Tender, Soft Back: Yes: Normal Inspection Musculoskeletal: Yes: Other (staggering gait) Extremities: Yes: Within Normal Limits, Normal Range of Motion, Non-Tender, Tremors, Other (no deformity , full AROM / PROM clayton UE / LE) Neurological: Yes: Motor Strength 5/5, Disoriented, Depressed Affect Integumentary: Yes: Warm, Other (superficial abrasion right anterior tibia inferior to patella) - Addiitonal Findings: pt is poor historian 2/2 intoxication , internally preoccupied, laughing randomly . - Diagnostic (1) Alcohol dependence with uncomplicated withdrawal Current Visit: Yes Status: Acute (2) Cannabis dependence, uncomplicated Current Visit: Yes Status: Chronic (3) Cocaine dependence Current Visit: Yes Status: Chronic Qualifiers: Substance use status: uncomplicated Qualified Code(s): F14.20 - Cocaine dependence, uncomplicated (4) Nicotine dependence Current Visit: Yes Status: Chronic Qualifiers: Nicotine product type: cigarettes Substance use status: uncomplicated Qualified Code(s): F17.210 - Nicotine dependence, cigarettes, uncomplicated (5) Alcohol intoxication Current Visit: Yes Status: Acute Qualifiers: Complication of substance-induced condition: with unspecified complication Qualified Code(s): F10.929 - Alcohol use, unspecified with intoxication, unspecified Breathalyzer - Breathalyzer Breathalyzer: 0.261 Urine Drug Screen - Test Device Lot number: [id number] Expiration date: 05/02/20 - Control Is test valid?: Yes - Results Drug screen NEGATIVE: No Urine drug screen results: THC-Marijuana, MICHAEL-Cocaine, BZO-Benzodiazepines Inpatient Rehab Admission - Rehab Decision to Admit Inpatient rehab admission?: No
[2018-08-30] MEDS ORDERED: BISMUTH SUBSALICYLATE 524 MG/30 ML UD PO PRN (18:23)
[2018-08-30] MEDS ORDERED: MELATONIN 5 MG TABLETS PO PRN (18:23)
[2018-08-30] MEDS ORDERED: MAGNESIUM CITRATE 300 ML BOTTLE PO PRN (18:23)
[2018-08-30] MEDS ORDERED: MAG HYDROX/AL HYDROX/SIMETH 30 ML UNIT-DOSE CUP PO PRN (18:23)
[2018-08-30] MEDS ORDERED: IBUPROFEN 400 MG TABLET (FP) PO PRN (18:23)
[2018-08-30] MEDS ORDERED: MENTHOL/PHENOL 1 EACH UD MM PRN (18:23)
[2018-08-30] MEDS ORDERED: ACETAMINOPHEN 325 MG TABLET (FP) PO PRN ×2 (18:23)
[2018-08-30] MEDS ORDERED: MAGNESIUM HYDROX 2400MG/30ML ORAL SUSPENSION 30 ML CUP PO PRN (18:23)
[2018-08-30] MEDS ORDERED: chlordiazePOXIDE HCL 25 MG CAPSULE PO PRN (18:25)
[2018-08-30] MEDS: NICOTINE POLACRILEX 2 MG GUM BUC PRN ×2 (20:29→22:35)
[2018-08-30] MEDS: THIAMINE HCL 100 MG TABLET (FP) PO SCH (22:33)
[2018-08-30] MEDS: chlordiazePOXIDE HCL 25 MG CAPSULE PO SCH (22:33)
[2018-08-30] MEDS: BACITRACIN/POLYMYXIN B SULFATE 15 GM TUBE TP SCH (22:34)
[2018-08-31] MEDS: chlordiazePOXIDE HCL 25 MG CAPSULE PO SCH ×4 (05:31→22:25)
[2018-08-31] MEDS: BACITRACIN/POLYMYXIN B SULFATE 15 GM TUBE TP SCH ×2 (10:27→22:25)
[2018-08-31] MEDS: PRENATAL VITAMINS W/ FOLIC ACID TABLET (FP) PO SCH (10:27)
[2018-08-31] MEDS: NICOTINE POLACRILEX 2 MG GUM BUC PRN ×3 (14:11→21:17)
[2018-08-31] MEDS: hydrOXYzine PAMOATE 25 MG CAPSULE (FP) PO PRN ×2 (16:33→22:25)
--- NOTE | 2018-08-31 16:50 | PN ---
[facility] CIWA - CIWA Score Nausea/Vomitin-No Nausea/No Vomiting Muscle Tremors: 2 Anxiety: 4-Mod. Anxious/Guarded Agitation: 0-Normal Activity Paroxysmal Sweats: 3 Orientation: 0-Oriented Tacttile Disturbances: 2-Mild Itch/Numbness/Burn Auditory Disturbances: 0-None Visual Disturbances: 2-Mild Sensitivity Headache: 0-None Present CIWA-Ar Total Score: 13 S Progress Note (SOAP) Subjective: Chills, Sweating, Anxious, Tremors. Objective: PATIENT A & O X 3. IN NO ACUTE DISTRESS. 08/31/18 16:48 Vital Signs Temperature 97.3 F L 08/31/18 13:19 Pulse Rate 76 08/31/18 16:00 Respiratory Rate 16 08/31/18 13:19 Blood Pressure 125/83 08/31/18 13:19 O2 Sat by Pulse Oximetry (%) Laboratory Tests 08/31/18 07:50 RPR Titer Nonreactive ADMISSION RPR RESULT NOTED. OTHER ADMISSION LABS RESULTS PENDING. 08/31/18 16:49 Assessment: 08/31/18 16:50 WITHDRAWAL SYMPTOMS. Plan: CONTINUE DETOX.
--- NOTE | 2018-08-31 17:09 | CONSULT ---
[facility] Psychiatric Consult - Data Date of interview: 08/31/18 Admission source: [facility] Identifying data: Readmission to [facility] for this 37 y/o female, back for detoxification (cannabis, alcohol, crack/cocaine) after she left this program on 08/17/18. Interviewed at [address] [place] [address]. Patient is single without children, homeless, unemployed and financially supported by friends. Substance Abuse History: Discussed in this session. Patient admits to using alcohol, cocaine and marihuana. Details in current [facility] report as folows : Smoking history: Current every day smoker. Have you smoked in the past 12 months: Yes. Aproximately how many cigarettes per day: 20. Cigars Per Day: 0. Hx Chewing Tobacco Use: No. Initiated information on smoking cessation: No. - Substances abused. Alcohol. Other (specify): VODKA/BEER. Substance route : Oral. Frequency: Daily. Amount used: 15 oz beer, 3.5 quartz vodka. Age of first use: 15. Date of last use: 08/30/18. Crack. Substance route: Smoking. Frequency: Daily. Amount used: 20 grams. Age of first use: 21. Date of last use: 08/29/18. Marijuana/Hashish. Substance route: Smoking. Frequency: Daily. Amount used: 5 Blunts. Age of first use: 20. Date of last use: 08/29/18. Family Disease History Medical History: Currently in good general health (self-report). Distant history of withdrawal-related seizures. Psychiatric History: No changes in psychiatric profile since last encounter on . Already established history of multiple psychiatric hospitalizations ( [facility], [facility]). Diagnosed with Schizoaffective Disorder and PTSD. Ms Whitman is still followed by the [facility] ACT team II ([phone]). Kept stable on a regimen of Invega IM (dose not recalled by the patient). Injection is due by the beginning of September (as per self-report). No longer on lithium. Patient denies history of suicide attempts. Physical/Sexual Abuse/Trauma History: Patient declines to discuss this domain. Additional Comment: Urine drug screen results: THC-Marijuana, MICHAEL-Cocaine, BZO- Benzodiazepines. Noted. Mental Status Exam - Mental Status Exam Alert and Oriented to: Time, Place, Person Cognitive Function: Good Patient Appearance: Well Groomed Mood: Hopeful, Euthymic Affect: Appropriate, Normal Range Patient Behavior: Fatigued, Appropriate, Cooperative Speech Pattern: Clear Voice Loudness: Normal Thought Process: Goal Oriented Thought Disorder: Not Present Hallucinations: Denies Suicidal Ideation: Denies Homicidal Ideation: Denies Insight/Judgement: Poor Sleep: Well Appetite: Good Gait/Station: Normal Psychiatric Findings - Problem List ([place] 1, 2,3) (1) Alcohol dependence with uncomplicated withdrawal Current Visit: Yes Status: Acute (2) Cannabis dependence, uncomplicated Current Visit: Yes Status: Chronic (3) Cocaine dependence Current Visit: Yes Status: Chronic Qualifiers: Substance use status: uncomplicated Qualified Code(s): F14.20 - Cocaine dependence, uncomplicated (4) Nicotine dependence Current Visit: Yes Status: Chronic Qualifiers: Nicotine product type: cigarettes Substance use status: uncomplicated Qualified Code(s): F17.210 - Nicotine dependence, cigarettes, uncomplicated (5) Substance induced mood disorder Current Visit: Yes Status: Chronic (6) Schizoaffective disorder Current Visit: Yes Status: Chronic - Initial Treatment Plan Initial Treatment Plan: Psychoeducation. Sleep hygiene. Detoxification. Groups. AA meetings. Observation.
[2018-08-31] MEDS: THIAMINE HCL 100 MG TABLET (FP) PO SCH (22:25)
[2018-09-01] MEDS: chlordiazePOXIDE HCL 25 MG CAPSULE PO SCH ×3 (05:31→17:52)
[2018-09-01 09:39] LABS: ALBUMIN 3.7 g/dl (3.4-5.0); BILIRUBIN,TOTAL 0.6 mg/dL (0.2-1); CALCIUM 9.1 mg/dL (8.5-10.1); CREATININE 0.5 mg/dL (0.55-1.3); POTASSIUM 3.8 mmol/L (3.5-5.1); TOT PROT 7.2 g/dl (6.4-8.2)
[2018-09-01 09:47] LABS: BASO % 1.3 % (0-2.0); EOS % 3.4 % (0-4.5); HEMATOCRIT 40.9 % (32.4-45.2); HEMOGLOBIN 13.8 GM/dL (10.7-15.3); LYMPH % 27.5 % (8-40); MCHC 33.7 g/dl (32.0-36.0); MEAN CELL VOLUME 103.9 fl (80-96); MEAN PLT VOLUME 9.3 fl (7.5-11.1); MONO % 7.9 % (3.8-10.2); NEUT % 59.9 % (42.8-82.8); RBC 3.94 M/mm3 (3.60-5.2); RDW 14.1 % (11.6-15.6); WHITE BLOOD COUNT 5.7 K/mm3 (4.0-10.0)
[2018-09-01] MEDS: BACITRACIN/POLYMYXIN B SULFATE 15 GM TUBE TP SCH (10:11)
[2018-09-01] MEDS: PRENATAL VITAMINS W/ FOLIC ACID TABLET (FP) PO SCH (10:11)
[2018-09-01 10:13] LABS: PLATELET COUNT 184 K/MM3 (134-434)
[2018-09-01] MEDS: hydrOXYzine PAMOATE 25 MG CAPSULE (FP) PO PRN (13:50)
[2018-09-01] MEDS: NICOTINE POLACRILEX 2 MG GUM BUC PRN (13:50)
--- NOTE | 2018-09-01 15:05 | PN ---
S CIWA - CIWA Score Nausea/Vomitin-No Nausea/No Vomiting Muscle Tremors: 4-Moderate,w/Arms Extend Anxiety: 4-Mod. Anxious/Guarded Agitation: 4-Moderately Restless Paroxysmal Sweats: 1-Minimal Palms Moist Orientation: 0-Oriented Tacttile Disturbances: 0-None Auditory Disturbances: 0-None Visual Disturbances: 0-None Headache: 0-None Present CIWA-Ar Total Score: 13 BHS Progress Note (SOAP) Subjective: ANXIETY, SWEATS,BODY ACHES. Objective: 09/01/18 15:05 Vital Signs - 24 hr 08/31/18 08/31/18 08/31/18 15:30 16:00 17:00 Temperature Pulse Rate 72 76 65 Respiratory 16 Rate Blood Pressure 08/31/18 08/31/18 08/31/18 17:30 18:00 18:30 Temperature Pulse Rate 67 70 65 Respiratory 16 16 16 Rate Blood Pressure 08/31/18 08/31/18 08/31/18 18:31 19:00 19:30 Temperature 98.8 F Pulse Rate 65 75 67 Respiratory 16 16 16 Rate Blood Pressure 109/72 08/31/18 08/31/18 09/01/18 20:00 21:52 00:30 Temperature 97.3 F L Pulse Rate 58 L 66 Respiratory 16 18 18 Rate Blood Pressure 115/81 09/01/18 09/01/18 09/01/18 03:30 06:28 09:37 Temperature 97.6 F 98.9 F Pulse Rate 59 L 82 Respiratory 18 18 18 Rate Blood Pressure 102/74 112/79 09/01/18 13:30 Temperature 97.2 F L Pulse Rate 77 Respiratory 18 Rate Blood Pressure 109/73 Laboratory Tests 08/31/18 09/01/18 09/01/18 07:50 05:50 05:50 WBC 5.7 RBC 3.94 Hgb 13.8 Hct 40.9 MCV 103.9 H MCH 35.0 H MCHC 33.7 RDW 14.1 Plt Count 184 D MPV 9.3 Absolute Neuts (auto) 3.4 Neutrophils % 59.9 Lymphocytes % 27.5 Monocytes % 7.9 Eosinophils % 3.4 Basophils % 1.3 Nucleated RBC % 0 Sodium 136 Potassium 3.8 Chloride 100 Carbon Dioxide 29 Anion Gap 7 L BUN 5.0 L Creatinine 0.5 L Est GFR (CKD-EPI)AfAm 144.31 Est GFR (CKD-EPI)NonAf 124.51 Random Glucose 101 Calcium 9.1 Total Bilirubin 0.6 AST 70 H ALT 54 Alkaline Phosphatase 98 Total Protein 7.2 Albumin 3.7 RPR Titer Nonreactive Assessment: 09/01/18 15:05 WITHDRAWAL SX Plan: CONTINUE DETOX
[2018-09-01] MEDS: NICOTINE POLACRILEX 4 MG GUM BUC PRN ×2 (16:30→18:31)
[2018-09-01 17:48] VITALS: BP 109/78; PULSE 69; TEMP 97.1
--- NOTE | 2018-09-01 20:27 | DS ---
[facility] Detox Discharge Summary Admission Date: 08/30/18 Discharge Date: 09/01/18 - History Present History: Alcohol Dependence, Cannabis Dependence, Cocaine Dependence Pertinent Past History: NICOTINE DEP - Physical Exam Results Vital Signs: Vital Signs Temperature 97.1 F L 09/01/18 17:47 Pulse Rate 69 09/01/18 17:47 Respiratory Rate 17 09/01/18 17:47 Blood Pressure 109/78 09/01/18 17:47 O2 Sat by Pulse Oximetry (%) Pertinent Admission Physical Exam Findings: WITHDRAWAL SX'S Laboratory Tests 08/31/18 09/01/18 09/01/18 07:50 05:50 05:50 WBC 5.7 RBC 3.94 Hgb 13.8 Hct 40.9 MCV 103.9 H MCH 35.0 H MCHC 33.7 RDW 14.1 Plt Count 184 D MPV 9.3 Absolute Neuts (auto) 3.4 Neutrophils % 59.9 Lymphocytes % 27.5 Monocytes % 7.9 Eosinophils % 3.4 Basophils % 1.3 Nucleated RBC % 0 Sodium 136 Potassium 3.8 Chloride 100 Carbon Dioxide 29 Anion Gap 7 L BUN 5.0 L Creatinine 0.5 L Est GFR (CKD-EPI)AfAm 144.31 Est GFR (CKD-EPI)NonAf 124.51 Random Glucose 101 Calcium 9.1 Total Bilirubin 0.6 AST 70 H ALT 54 Alkaline Phosphatase 98 Total Protein 7.2 Albumin 3.7 RPR Titer Nonreactive - Treatment Hospital Course: Discharged Condition Good Patient has Accepted a Rehab Referral to: [facility] - Medication Discharge Medications: Ambulatory Orders NK [No Known Home Medication] 01/01/17 - Diagnosis (1) Alcohol dependence with uncomplicated withdrawal Status: Acute (2) Alcohol intoxication Status: Acute Qualifiers: Complication of substance-induced condition: with unspecified complication Qualified Code(s): F10.929 - Alcohol use, unspecified with intoxication, unspecified (3) Cannabis dependence, uncomplicated Status: Acute (4) Cocaine dependence Status: Acute Qualifiers: Substance use status: uncomplicated Qualified Code(s): F14.20 - Cocaine dependence, uncomplicated (5) Nicotine dependence Status: Acute Qualifiers: Nicotine product type: cigarettes Substance use status: uncomplicated Qualified Code(s): F17.210 - Nicotine dependence, cigarettes, uncomplicated (6) Schizoaffective disorder Status: Chronic Qualifiers: Schizoaffective disorder type: depressive Qualified Code(s): F25.1 - Schizoaffective disorder, depressive type - AMA Did Patient Leave Against Medical Advice: Yes
[2018-09-01] MEDS ORDERED: chlordiazePOXIDE HCL 10 MG CAPSULE PO SCH (23:00)
[2018-09-01] MEDS ORDERED: chlordiazePOXIDE HCL 10 MG CAPSULE PO PRN (23:00)
[2018-09-02] MEDS ORDERED: chlordiazePOXIDE HCL 10 MG CAPSULE PO SCH (23:00)
== END 2018-09-01 20:18 | disposition left against medical advice (07) | DRG 770 ==
LOC: YASAS 12:45 → Y3N 19:01
PROVIDERS: ADMIT Surgery; ATTEND Surgery
PROC: HZ2ZZZZ Detoxification Services for Substance Abuse Treatment (ICD-10-PCS; principal; 2018-08-30)
DX: F10.230 Alcohol dependence with withdrawal, uncomplicated (principal); F10.220 Alcohol dependence with intoxication, uncomplicated; F14.20 Cocaine dependence, uncomplicated; F12.20 Cannabis dependence, uncomplicated; F17.210 Nicotine dependence, cigarettes, uncomplicated; F19.24 Other psychoactive substance dependence with psychoactive substance-induced mood disorder; F25.9 Schizoaffective disorder, unspecified
CPT/HCPCS: 36415; 80053; 85025; 86593

== ENCOUNTER 2018-09-17 15:48 | Emergency (ER) | payer OTHER ==
--- NOTE | 2018-09-17 16:06 | PDOC ---
Rapid Medical Evaluation Time Seen by Provider: 09/17/18 16:02 Medical Evaluation: Allergies Allergy/AdvReac Type Severity Reaction Status Date / Time Penicillins Allergy Verified 08/30/18 14:48 09/17/18 16:03 I have performed a brief in-person evaluation of this patient. The patient presents with a chief complaint of: Polysubstance abuse (heroin/ cocaine/marijuana, ETOH), smoker, schizophrenia, undomiciled, BIB EMS req detox , last used 2 days ago, found sleeping in [place], friend called EMS. Pt unable to give much hx due to medical condition. Of note, pt last admitted to [facility] ~3 weeks ago Pertinent physical exam findings:Pt disheveled and mostly somnolent here I have ordered the following:medical clearance/detox The patient will proceed to the ED for further evaluation Discharge Disposition - Diagnosis Polysubstance (excluding opioids) dependence, daily use - Referrals - Patient Instructions - Post Discharge Activity
[2018-09-17 16:10] VITALS: BP 102/66; PULSE 96; TEMP 98.5; BMI 24.2
[2018-09-17] MEDS ORDERED: SODIUM CHLORIDE 0.9% 500 ML INFUS.BAG IV ONE (17:46)
[2018-09-17] MEDS ORDERED: FOLIC ACID INJECTION - 1 MG, THIAMINE HCL 100 MG, MULTIVIT INJECTION ADULT 10 ML in SOD... IVPB ONE (17:48)
[2018-09-17 17:59] LABS: BASO % 0.8 % (0-2.0); EOS % 5.3 % (0-4.5); HEMATOCRIT 39.5 % (32.4-45.2); HEMOGLOBIN 13.6 GM/dL (10.7-15.3); LYMPH % 30.8 % (8-40); MCH 34.9 pg (25.7-33.7); MCHC 34.6 g/dl (32.0-36.0); MEAN CELL VOLUME 101.1 fl (80-96); MEAN PLT VOLUME 7.7 fl (7.5-11.1); MONO % 7.7 % (3.8-10.2); NEUT % 55.4 % (42.8-82.8); PLATELET COUNT 177 K/MM3 (134-434); RBC 3.91 M/mm3 (3.60-5.2); RDW 13.4 % (11.6-15.6); WHITE BLOOD COUNT 6.8 K/mm3 (4.0-10.0)
--- NOTE | 2018-09-17 18:38 | PDOC ---
History of Present Illness - History of Present Illness Initial Comments: 09/17/18 21:55 37yo undomiciled F hx polysubstance abuse (heroin, cocaine, MJ, EtOH, tobacco) and schizophrenia [place] Per triage, pt is requesting detox and pt last used 2 days ago. Pt refuses to answer my questions. Per records, pt was admitted to [facility] and underwent detox and was d/c on 09/01/18 and refused rehab. <Maris Lema - Last Filed: 09/17/18 21:58> <Christi Gabriel - Last Filed: 09/17/18 22:26> - General Chief Complaint: Alcohol intoxication Stated Complaint: DETOX Time Seen by Provider: 09/17/18 16:02 Past History - Past Medical History Anemia: No Asthma: No Cancer: No Cardiac Disorders: No CVA: No COPD: No CHF: No Dementia: No Diabetes: No GI Disorders: No Disorders: No HTN: No Hypercholesterolemia: No Kidney Stones: No Liver Disease: No Seizures: Yes Thyroid Disease: No Other medical history: susbtance abuse - Surgical History Abdominal Surgery: No Appendectomy: No Cardiac Surgery: No Cholecystectomy: No Lung Surgery: No Neurologic Surgery: No Orthopedic Surgery: No - Reproductive History PID: No - Immunization History Immunization Up to Date: No - Suicide/Smoking/Psychosocial Hx Smoking History: Current every day smoker Have you smoked in the past 12 months: Yes Number of Cigarettes Smoked Daily: 10 Cigars Per Day: 0 Information on smoking cessation initiated: No 'Breaking Loose' booklet given: 08/16/18 Hx Alcohol Use: No Drug/Substance Use Hx: Yes (HEROIN/ ETOH) Substance Use Type: Alcohol, Cocaine, Marijuana Hx Substance Use Treatment: No <Maris Lema - Last Filed: 09/17/18 21:58> <Christi Gabriel - Last Filed: 09/17/18 22:26> - Past Medical History Allergies/Adverse Reactions: Allergies Allergy/AdvReac Type Severity Reaction Status Date / Time Penicillins Allergy Verified 08/30/18 14:48 Home Medications: Ambulatory Orders NK [No Known Home Medication] 01/01/17 Review of Systems - Review of Systems Able to Perform ROS?: No (AMS 2/2 intoxication?) <Maris Lema - Last Filed: 09/17/18 21:58> *Physical Exam - Vital Signs Last Vital Signs Temp Pulse Resp BP Pulse Ox 98.5 F 96 H 16 102/66 99 09/17/18 16:05 09/17/18 16:05 09/17/18 16:05 09/17/18 16:05 09/17/18 16:05 - Physical Exam Comments: 09/17/18 21:59 Gen: sleeping, awakened by voice/pain, nonverbal, NAD, comfortable-appearing. HEENT: PERRL, MMM, NCAT. No conjunctival pallor. Sclera are non-icteric. CV: Regular rate and rhythm. No murmurs, rubs, or gallops. PULM: No resp distress. CTAB, no wheezes, rales, or rhonchi. ABD: soft, NT/ND, no rebound tenderness or guarding, no CVA tenderness. MSK: No bony deformities. 2+ pulses in all extremities. NEURO: Alert to voice/pain, nonverbal at this time, PERRL. EXTREMITIES: No cyanosis. No clubbing. No edema. No calf tenderness. PSYCH: Unable to assess SKIN: Warm and dry. Normal capillary refill. No rashes. No jaundice. <Maris Lema - Last Filed: 09/17/18 21:58> - Vital Signs Last Vital Signs Temp Pulse Resp BP Pulse Ox 98.5 F 96 H 16 102/66 99 09/17/18 16:05 09/17/18 16:05 09/17/18 16:05 09/17/18 16:05 09/17/18 16:05 <Christi Gabriel - Last Filed: 09/17/18 22:26> ED Treatment Course - LABORATORY CBC & Chemistry Diagram: 09/17/18 17:38 09/17/18 17:38 - ADDITIONAL ORDERS Additional order review: 09/17/18 17:38 RBC 3.91 MCV 101.1 H MCHC 34.6 RDW 13.4 MPV 7.7 D Neutrophils % 55.4 Lymphocytes % 30.8 Monocytes % 7.7 Eosinophils % 5.3 H Basophils % 0.8 - Medications Given in the ED: ED Medications Discontinued Medications Generic Name Dose Route Start Last Admin Trade Name Freq PRN Reason Stop Dose Admin Sodium Chloride 1,000 ml 07/16/19 17:46 09/17/18 17:50 Normal Saline - IV 09/17/18 17:47 Not Given ONCE ONE <Maris Lema - Last Filed: 09/17/18 21:58> - LABORATORY CBC & Chemistry Diagram: 09/17/18 17:38 09/17/18 17:38 - ADDITIONAL ORDERS Additional order review: Laboratory Results 09/17/18 17:38 Sodium 143 Potassium 3.8 Chloride 110 H Carbon Dioxide 28 Anion Gap 6 L BUN 3.5 L Creatinine 0.6 Est GFR (CKD-EPI)AfAm 135.91 Est GFR (CKD-EPI)NonAf 117.26 Random Glucose 88 Calcium 8.2 L Total Bilirubin 0.3 AST 45 H ALT 39 Alkaline Phosphatase 99 Total Protein 7.0 Albumin 3.4 09/17/18 17:38 RBC 3.91 MCV 101.1 H MCHC 34.6 RDW 13.4 MPV 7.7 D Neutrophils % 55.4 Lymphocytes % 30.8 Monocytes % 7.7 Eosinophils % 5.3 H Basophils % 0.8 - Medications Given in the ED: ED Medications Discontinued Medications Generic Name Dose Route Start Last Admin Trade Name Freq PRN Reason Stop Dose Admin Sodium Chloride 1,000 ml 09/17/18 17:46 09/17/18 17:50 Normal Saline - IV 09/17/18 17:47 Not Given ONCE ONE <Christi Gabriel - Last Filed: 09/17/18 22:26> Medical Decision Making - Medical Decision Making 09/17/18 22:00 37yo undomiciled F hx polysubstance abuse (heroin, cocaine, MJ, EtOH, tobacco) and schizophrenia [place] Per triage, pt is requesting detox and pt last used 2 days ago. Pt refuses to answer my questions. Per records, pt was admitted to [facility] and underwent detox and was d/c on 09/01/18 and refused rehab. Will give banana bag, get basic labs, and re- evaluate. -Banana bag -EKG -CBC, CMP, Urine tox, Urine preg, EtOH, UA -Dispo: pending reassessment 09/17/18 22:03 No concerning findings on CBC or CMP. Pending urine and EtOH. <Maris Lema - Last Filed: 09/17/18 21:58> *DC/Admit/Observation/Transfer <Maris Lema - Last Filed: 09/17/18 21:58> <Christi Gabriel - Last Filed: 09/17/18 22:26> Diagnosis at time of Disposition: Polysubstance (excluding opioids) dependence, daily use - Discharge Dispostion Disposition: HOME Condition at time of disposition: Improved - Patient Instructions Printed Discharge Instructions: DI for Alcohol Abuse Additional Instructions: Please follow up with detox
[2018-09-17 19:02] LABS: ALBUMIN 3.4 g/dl (3.4-5.0); BILIRUBIN,TOTAL 0.3 mg/dL (0.2-1); BLOOD UREA NITROGEN 3.5 mg/dL (7-18); CALCIUM 8.2 mg/dL (8.5-10.1); CREATININE 0.6 mg/dL (0.55-1.3); POTASSIUM 3.8 mmol/L (3.5-5.1)
--- NOTE | 2018-09-17 21:55 | PDOC ---
Documentation entered by Jules Jordan SCRIBE, acting as scribe for Christi Gabriel MD. Christi Gabriel MD: This documentation has been prepared by the Julian boudreaux Joel, SCRIBE, under my direction and personally reviewed by me in its entirety. I confirm that the documentation accurately reflects all work, treatment, procedures, and medical decision making performed by me. Attending Attestation - Resident Resident Name: Maris Lema - ED Attending Attestation I have performed the following: I have examined & evaluated the patient, The case was reviewed & discussed with the resident, I agree w/resident's findings & plan, Exceptions are as noted - HPI HPI: 09/17/18 18:44 The patient is a 37 year old undomiciled female with a significant PMH of schizophrenia, polysubstance abuse who presents to the emergency department with suspected alcohol intoxication. The patient is nonverbal at this moment, suspected due to alcohol intoxication, unable to provide further history. Allergies: Penicillins Past surgical history: None reported. Social history: Polysubstance abuse. Everyday smoker. - Physicial Exam PE: 09/17/18 18:44 GENERAL: (+) Nonerbal. (+) Disheveled. Awake, alert, and fully oriented, in no acute distress HEAD: No signs of trauma EYES: PERRLA, EOMI, sclera anicteric, conjunctiva clear ENT: Auricles normal inspection, hearing grossly normal, nares patent, oropharynx clear without exudates. Moist mucosa NECK: Normal ROM, supple, no lymphadenopathy, JVD, or masses LUNGS: Breath sounds equal, clear to auscultation bilaterally. No wheezes, and no crackles HEART: Regular rate and rhythm, normal S1 and S2, no murmurs, rubs or gallops ABDOMEN: Soft, nontender, normoactive bowel sounds. No guarding, no rebound. No masses EXTREMITIES: (+) 3 cm L ellbow eschar with healing. (+) 8 cm R inner forearm bruise.Normal range of motion, no edema. No clubbing or cyanosis. No cords, erythema, or tenderness NEUROLOGICAL: Cranial nerves II through XII grossly intact. Normal speech, normal gait SKIN: Warm, Dry, normal turgor, no rashes or lesions noted. - Medical Decision Making 09/17/18 20:41 37 yo nondomiciled female w history of mental illness and polysubstance abuse presents somnolent pt receiving "banana" bag ' cbc wnl chemistries electrolytes are wnl 09/17/18 22:25 pt discharged I called [facility] and they have no female beds tonight plan she needs to follow up with them in am to see if they can admit her 09/17/18 22:44
--- NOTE | 2018-09-18 10:28 | EKG ---
Test Reason : Blood Pressure : / mmHG Vent. Rate : 076 BPM Atrial Rate : 076 BPM P-R Int : 144 ms QRS Dur : 094 ms QT Int : 416 ms P-R-T Axes : 074 070 050 degrees QTc Int : 468 ms NORMAL SINUS RHYTHM NORMAL ECG WHEN COMPARED WITH ECG OF 26-DEC-2017 19:20, T WAVE INVERSION NO LONGER EVIDENT IN ANTERIOR LEADS Confirmed by RAGHAV QUESADA, RAVI ([id number]) on 09/18/2018 10:28:21 AM Referred By: Confirmed By:RAVI AVILEZ MD
== END 2018-09-17 22:48 | disposition home or self-care (01) ==
LOC: JER 15:48
PROC: 3E033GC Introduction of Other Therapeutic Substance into Peripheral Vein, Percutaneous Approach (ICD-10-PCS; principal; 2018-09-17)
DX: F10.220 Alcohol dependence with intoxication, uncomplicated (principal); Y90.8 Blood alcohol level of 240 mg/100 ml or more; F11.20 Opioid dependence, uncomplicated; F14.20 Cocaine dependence, uncomplicated; F12.20 Cannabis dependence, uncomplicated; F17.210 Nicotine dependence, cigarettes, uncomplicated; F20.9 Schizophrenia, unspecified; Z59.0 Homelessness
CPT/HCPCS: 36415; 71045-TC-FY; 80053; 80307; 85025; 93005; 93010; 96365; 96366; 99284-25; J7030

== ENCOUNTER 2018-09-23 09:37 | Inpatient (IN) | payer OTHER ==
[2018-09-23 10:22] VITALS: BMI 18.6
--- NOTE | 2018-09-23 11:47 | HP ---
CIWA Score Nausea/Vomitin Muscle Tremors: 6 Anxiety: 3 Agitation: 1-Slight > Activity Paroxysmal Sweats: 1-Minimal Palms Moist Orientation: 0-Oriented Tacttile Disturbances: 2-Mild Itch/Numbness/Burn Auditory Disturbances: 0-None Visual Disturbances: 0-None Headache: 0-None Present CIWA-Ar Total Score: 19 - Admission Criteria OASAS Guidelines: Admission for Medically Managed Detox: Requires at least one of the followin. CIWA greater than 12 2. Seizures within the past 24 hours 3. Delirium tremens within the past 24 hours 4. Hallucinations within the past 24 hours 5. Acute intervention needed for co occurring medical disorder 6. Acute intervention needed for co occurring psychiatric disorder 7. Severe withdrawal that cannot be handled at a lower level of care (continued vomiting, continued diarrhea, abnormal vital signs) requiring intravenous medication and/or fluids 8. Patient presents the following: CIWA greater than 12 Admission Criteria Met: Admission criteria met Admission ROS S - [facility] Chief Complaint: I need to get clean and sober. Allergies/Adverse Reactions: Allergies Allergy/AdvReac Type Severity Reaction Status Date / Time Penicillins Allergy Intermediate Verified 09/23/18 10:24 History of Present Illness: 37y/o f pt with h/o polysubstance use/dep since age 15-alcohol , crack, marijuana . Pt has been to multiple detox and rehab program . last detox was at [facility] 1 month ago . Now pt seeking detox and rehab . Pt was seen at [facility] ED earlier for acute intoxication and referred for alcohol detox. Exam Limitations: No Limitations - Ebola screening Have you traveled outside of the country in the last 21 days: No Have you had contact with anyone from an Ebola affected area: No Do you have a fever: No - Review of Systems Constitutional: Chills, Loss of Appetite, Malaise, Night Sweats, Changes in sleep, Weakness EENT: reports: Dental Problems (sensitivity) Respiratory: reports: No Symptoms reported, Productive cough Cardiac: reports: No Symptoms Reported GI: reports: Diarrhea, Nausea, Poor Appetite, Vomiting, Abdominal cramping : reports: No Symptoms Reported Musculoskeletal: reports: Muscle Pain Integumentary: reports: No Symptoms Reported Neuro: reports: Tremors, Dizziness Endocrine: reports: Increased Thirst Hematology: reports: No Symptoms Reported Psychiatric: reports: Agitated, Anxious, Depressed Other Systems: Reviewed and Negative Patient History - Patient Medical History Hx Anemia: No Hx Asthma: No Hx Chronic Obstructive Pulmonary Disease (COPD): No Hx Cancer: No Hx Cardiac Disorders: No Hx Congestive Heart Failure: No Hx Hypertension: No Hx Hypercholesterolemia: No Hx Pacemaker: No HX Cerebrovascular Accident: No Hx Seizures: Yes (last sz 4 months ago) Hx Dementia: No Hx Diabetes: No Hx Gastrointestinal Disorders: No Hx Liver Disease: No Hx Genitourinary Disorders: No Hx Sexually Transmitted Disorders: No Hx Renal Disease (ESRD): No Hx Thyroid Disease: No Hx Human Immunodeficiency Virus (HIV): No Hx Hepatitis C: No Hx Depression: No Hx Suicide Attempt: No Hx Bipolar Disorder: No Hx Schizophrenia: Yes (schizo-affective d/o, ptsd- invega q 3m im , [place]) - Patient Surgical History Past Surgical History: No Hx Neurologic Surgery: No Hx Cataract Extraction: No Hx Cardiac Surgery: No Hx Lung Surgery: No Hx Breast Surgery: No Hx Breast Biopsy: No Hx Abdominal Surgery: No Hx Appendectomy: No Hx Cholecystectomy: No Hx Genitourinary Surgery: No Hx Section: No Hx Orthopedic Surgery: No Hx Hysterectomy: No Anesthesia Reaction: No - PPD History Documented Results: Negative w/proof Date: 12/28/17 Results: 0MM - Reproductive History Patient is a Female of Child Bearing Age (11 -55 yrs old): Yes Last Menstrual Period: 02/01/17 LMP comment: 2ndary ammenorrhea related to IM meds Patient : No - Smoking Cessation Smoking history: Current every day smoker Have you smoked in the past 12 months: Yes Aproximately how many cigarettes per day: 20 Cigars Per Day: 0 Hx Chewing Tobacco Use: No Initiated information on smoking cessation: Yes 'Breaking Loose' booklet given: 09/23/18 - Substance & Tx. History Hx Alcohol Use: Yes Hx Substance Use: Yes Substance Use Type: Alcohol, Cocaine, Heroin, Marijuana - Substances abused Alcohol Other (specify): VODKA/BEER Substance route: Oral Frequency: Daily Amount used: 5-22 oz beers/day, 1pt. vodka/day Age of first use: 15 Date of last use: 09/23/18 Crack Substance route: Smoking Frequency: Daily Amount used: 20 grams Age of first use: 21 Date of last use: 07/21/19 Marijuana/Hashish Substance route: Smoking Frequency: Daily Amount used: 2 Blundts Age of first use: 20 Date of last use: 09/22/18 Heroin Substance route: Inhalation Frequency: 1-3 times last 30 days Amount used: 1 bag Age of first use: 36 Date of last use: 08/22/18 Cocaine Substance route: Inhalation Frequency: 1-2 times per week Amount used: ?? Age of first use: 21 Date of last use: 09/02/18 Family Disease History - Family Disease History Family Disease History: CA: Mother, Other: Mother Admission Physical Exam S - Vital Signs Vital Signs: Vital Signs - 24 hr 09/23/18 10:13 Temperature 97.0 F L Pulse Rate 64 Respiratory 16 Rate Blood Pressure 121/87 37 y/o f pt with tremors , cough, wreching bring up clear fluid/mucous , cooperating with exam. - Physical General Appearance: Yes: Thin, Anxious HEENTM: Yes: EOMI, Hearing grossly Normal, Normal ENT Inspection, Normocephalic , Normal Voice, DIETER Respiratory: Yes: Chest Non-Tender, Lungs Clear, Normal Breath Sounds, No Respiratory Distress Neck: Yes: No masses,lesions,Nodules, Supple, Trachea in good position Breast: Yes: Breast Exam Deferred Cardiology: Yes: Regular Rhythm, Regular Rate Abdominal: Yes: Flat, Soft, Increased Bowel Sounds, Guarding, Other (vomiting) Genitourinary: Yes: Yeast Infection (pt report vaginal itch) Back: Yes: Decreased Range of Motion Musculoskeletal: Yes: Back pain, Muscle Pain Extremities: Yes: Tremors Neurological: Yes: Fully Oriented, Alert Integumentary: Yes: Warm, Erythema, Moist Lymphatic: Yes: Within Normal Limits - Diagnostic (1) Vagina, candidiasis Current Visit: Yes Status: Acute (2) Alcohol dependence with uncomplicated withdrawal Current Visit: Yes Status: Chronic (3) Cannabis dependence, uncomplicated Current Visit: Yes Status: Chronic (4) Cocaine dependence Current Visit: Yes Status: Chronic Qualifiers: Substance use status: uncomplicated Qualified Code(s): F14.20 - Cocaine dependence, uncomplicated (5) Nicotine dependence Current Visit: Yes Status: Chronic Qualifiers: Nicotine product type: cigarettes Substance use status: uncomplicated Qualified Code(s): F17.210 - Nicotine dependence, cigarettes, uncomplicated (6) Schizoaffective disorder Current Visit: No Status: Chronic Qualifiers: Schizoaffective disorder type: depressive Qualified Code(s): F25.1 - Schizoaffective disorder, depressive type Cleared for Admission S - Detox or Rehab [facility] Level of Care: Medically Managed Detox Regimen/Protocol: Librium Breathalyzer - Breathalyzer Breathalyzer: 0.003 Urine Drug Screen - Test Device Lot number: [id number] Expiration date: 07/02/20 - Control Is test valid?: Yes - Results Drug screen NEGATIVE: No Urine drug screen results: THC-Marijuana, MICHAEL-Cocaine, BZO-Benzodiazepines Inpatient Rehab Admission - Rehab Decision to Admit Inpatient rehab admission?: No - Initial Determination Are CD services needed?: Yes Free of communicable disease: Yes Not in need of hospitalization: No - Rehab Admission Criteria Previous failed treatment: Yes Poor recovery environment: Yes Comorbidities: No Lacks judgement: Yes Patient is meeting Inpatient Rehab admission criteria:: Yes
[2018-09-23] MEDS ORDERED: IBUPROFEN 400 MG TABLET (FP) PO PRN (12:11)
[2018-09-23] MEDS ORDERED: BISMUTH SUBSALICYLATE 262 MG/15 ML BTL PO PRN (12:11)
[2018-09-23] MEDS ORDERED: ONDANSETRON *ODT* 4 MG TABLET SL PRN (12:11)
[2018-09-23] MEDS ORDERED: MAG HYDROX/AL HYDROX/SIMETH 30 ML UNIT-DOSE CUP PO PRN (12:11)
[2018-09-23] MEDS ORDERED: MAGNESIUM HYDROX 2400MG/30ML ORAL SUSPENSION 30 ML CUP PO PRN (12:11)
[2018-09-23] MEDS ORDERED: chlordiazePOXIDE HCL 25 MG CAPSULE PO PRN (12:11)
[2018-09-23] MEDS ORDERED: ACETAMINOPHEN 325 MG TABLET (FP) PO PRN ×2 (12:11)
[2018-09-23] MEDS ORDERED: MAGNESIUM CITRATE 300 ML BOTTLE PO PRN (12:11)
[2018-09-23] MEDS ORDERED: MENTHOL/PHENOL 1 EACH UD MM PRN (12:11)
[2018-09-23] MEDS ORDERED: FLUCONAZOLE 50 MG TABLET PO ONE (12:17)
[2018-09-23] MEDS: chlordiazePOXIDE HCL 25 MG CAPSULE PO SCH ×4 (13:08→22:42)
[2018-09-23] MEDS: NICOTINE POLACRILEX 4 MG GUM BUC PRN (14:52)
[2018-09-23 16:09] LABS: HEMATOCRIT 42.7 % (32.4-45.2); HEMOGLOBIN 14.6 GM/dL (10.7-15.3); MCH 34.6 pg (25.7-33.7); MCHC 34.1 g/dl (32.0-36.0); MEAN CELL VOLUME 101.3 fl (80-96); MEAN PLT VOLUME 8.4 fl (7.5-11.1); PLATELET COUNT 131 K/MM3 (134-434); RBC 4.21 M/mm3 (3.60-5.2); RDW 13.6 % (11.6-15.6); WHITE BLOOD COUNT 5.5 K/mm3 (4.0-10.0)
[2018-09-23 17:56] LABS: BILIRUBIN,TOTAL 0.7 mg/dL (0.2-1); BLOOD UREA NITROGEN 3.8 mg/dL (7-18); CREATININE 0.6 mg/dL (0.55-1.3); POTASSIUM 3.6 mmol/L (3.5-5.1); TOT PROT 7.9 g/dl (6.4-8.2)
[2018-09-23] MEDS: MELATONIN 5 MG TABLETS PO PRN (22:42)
[2018-09-23] MEDS: THIAMINE HCL 100 MG TABLET (FP) PO SCH (22:42)
[2018-09-24] MEDS: chlordiazePOXIDE HCL 25 MG CAPSULE PO SCH ×4 (05:54→22:29)
[2018-09-24] MEDS: PRENATAL VITAMINS W/ FOLIC ACID TABLET (FP) PO SCH (10:58)
[2018-09-24] MEDS: NICOTINE 21 MG/24 HOURS TOPICAL PATCH TD SCH (10:58)
--- NOTE | 2018-09-24 11:31 | CONSULT ---
[facility] Psychiatric Consult - Data Date of interview: 09/24/18 Admission source: [facility] ED for intoxication Identifying data: Ms Whitman is a 37 years old single female, unemployed with no source of income, homeless seeking detox treatment forv alcohol opioid, cocaine and cannabis Substance Abuse History: Reports history of alcohol, heroin, cocaine and marijuana use. Refer to addiction counselor's summary for further information Medical History: Significant for secondary amenorrhea and history of alcohol related seizure. Smokes cigarettes 1 ppd Psychiatric History: Patient is known to this facilty from multiple previous admissions. No changes in psychiatric profile since last admission in August 30-2018. Reports that her first psychiatric admission was in her early 20's at [facility] where she was diagnosed with Schizoaffective Disorder, PTSD and started on psychotropic medications. Reports multiple subsequent psychiatric hospitaliations to various facilities including [facility], [facility] and most recently late 2017 at [facility] for auditory hallucinations. She receives outpatient psychiatric treatment via the [facility] ACT team II ([phone]). She is currently on Invega IM (dose not recalled by the patient) every 3 months. Injection is due next month. Told ad writer that she does not intend to continue on that medication because of advers -effect(amenorrhea). Patient denies previous suicide attempts. At present, denies experiencing psychotic, manic symptoms, S/H ideations. However, reports feeling depressed and sleeping poorly Physical/Sexual Abuse/Trauma History: Denies emotional, physical or sexual abuse as wel as DV relationship Mental Status Exam - Mental Status Exam Alert and Oriented to: Time, Place, Person Cognitive Function: Fair Patient Appearance: Well Groomed Mood: Depressed Affect: Appropriate Patient Behavior: Cooperative Speech Pattern: Clear Voice Loudness: Normal Thought Disorder: Not Present Hallucinations: Denies Suicidal Ideation: Denies Homicidal Ideation: Denies Insight/Judgement: Poor Sleep: Poorly Appetite: Good Muscle strength/Tone: Normal Gait/Station: Normal Psychiatric Findings - Problem List ([place] 1, 2,3) (1) Schizoaffective disorder Current Visit: No Status: Chronic Qualifiers: Schizoaffective disorder type: depressive Qualified Code(s): F25.1 - Schizoaffective disorder, depressive type (2) PTSD (post-traumatic stress disorder) Current Visit: Yes Status: Chronic (3) Substance induced mood disorder Current Visit: Yes Status: Acute (4) Substance-induced sleep disorder Current Visit: Yes Status: Acute (5) Alcohol dependence with uncomplicated withdrawal Current Visit: Yes Status: Acute (6) Cocaine dependence Current Visit: Yes Status: Acute Qualifiers: Substance use status: uncomplicated Qualified Code(s): F14.20 - Cocaine dependence, uncomplicated (7) Cannabis dependence, uncomplicated Current Visit: Yes Status: Acute (8) Opioid abuse Current Visit: Yes Status: Acute (9) Nicotine dependence Current Visit: Yes Status: Chronic Qualifiers: Nicotine product type: cigarettes Substance use status: uncomplicated Qualified Code(s): F17.210 - Nicotine dependence, cigarettes, uncomplicated (10) Alcohol withdrawal seizure Current Visit: No Status: Resolved Qualifiers: Complication of substance-induced condition: uncomplicated Qualified Code(s ): F10.230 - Alcohol dependence with withdrawal, uncomplicated (11) Amenorrhea, secondary Current Visit: Yes Status: Chronic - Initial Treatment Plan Initial Treatment Plan: Continue inpatient detoxification
--- NOTE | 2018-09-24 11:50 | PN ---
S CIWA - CIWA Score Nausea/Vomitin-No Nausea/No Vomiting Muscle Tremors: 3 Anxiety: 3 Agitation: 4-Moderately Restless Paroxysmal Sweats: 3 Orientation: 0-Oriented Tacttile Disturbances: 0-None Auditory Disturbances: 0-None Visual Disturbances: 0-None Headache: 0-None Present CIWA-Ar Total Score: 13 B[facility] Progress Note (SOAP) Subjective: agitation sweats irritable body aches Objective: 09/24/18 11:50 Vital Signs Temperature 97.9 F 09/24/18 10:03 Pulse Rate 80 09/24/18 10:03 Respiratory Rate 18 09/24/18 10:03 Blood Pressure 144/83 09/24/18 10:03 O2 Sat by Pulse Oximetry (%) Laboratory Tests 09/23/18 09/23/18 09/23/18 11:07 13:10 13:15 WBC 5.5 RBC 4.21 Hgb 14.6 Hct 42.7 MCV 101.3 H MCH 34.6 H MCHC 34.1 RDW 13.6 Plt Count 131 L D MPV 8.4 Sodium 136 Potassium 3.6 Chloride 98 Carbon Dioxide 26 Anion Gap 12 BUN 3.8 L Creatinine 0.6 Est GFR (CKD-EPI)AfAm 135.91 Est GFR (CKD-EPI)NonAf 117.26 Random Glucose 104 Calcium 9.0 Total Bilirubin 0.7 AST 88 H ALT 44 Alkaline Phosphatase 118 H Total Protein 7.9 Albumin 4.0 POC Urine HCG, Qual Negative RPR Titer 09/23/18 13:15 WBC RBC Hgb Hct MCV MCH MCHC RDW Plt Count MPV Sodium Potassium Chloride Carbon Dioxide Anion Gap BUN Creatinine Est GFR (CKD-EPI)AfAm Est GFR (CKD-EPI)NonAf Random Glucose Calcium Total Bilirubin AST ALT Alkaline Phosphatase Total Protein Albumin POC Urine HCG, Qual RPR Titer Nonreactive labs noted aaox3 lying in bed no acute distress Assessment: 09/24/18 11:50 withdrawal sx Plan: continue detox increase fluids
[2018-09-24] MEDS: METHOCARBAMOL 500 MG TABLET PO PRN (14:29)
[2018-09-24] MEDS: NICOTINE POLACRILEX 4 MG GUM BUC PRN (17:24)
[2018-09-24] MEDS: hydrOXYzine HCL 25 MG TABLET (FP) PO PRN (20:19)
[2018-09-24] MEDS: THIAMINE HCL 100 MG TABLET (FP) PO SCH (22:29)
[2018-09-24] MEDS: MELATONIN 5 MG TABLETS PO PRN (22:30)
[2018-09-25] MEDS ORDERED: chlordiazePOXIDE HCL 10 MG CAPSULE PO PRN
[2018-09-25] MEDS: chlordiazePOXIDE HCL 10 MG CAPSULE PO SCH ×4 (05:16→22:41)
[2018-09-25] MEDS: NICOTINE POLACRILEX 4 MG GUM BUC PRN ×3 (09:32→17:29)
[2018-09-25] MEDS: NICOTINE 21 MG/24 HOURS TOPICAL PATCH TD SCH (10:24)
[2018-09-25] MEDS: PRENATAL VITAMINS W/ FOLIC ACID TABLET (FP) PO SCH (10:24)
--- NOTE | 2018-09-25 12:53 | PN ---
[facility] CIWA - CIWA Score Nausea/Vomitin-No Nausea/No Vomiting Muscle Tremors: 3 Anxiety: 3 Agitation: 3 Paroxysmal Sweats: 2 Orientation: 0-Oriented Tacttile Disturbances: 0-None Auditory Disturbances: 0-None Visual Disturbances: 0-None Headache: 0-None Present CIWA-Ar Total Score: 11 S Progress Note (SOAP) Subjective: sweats anxiety feeling better Objective: 09/25/18 12:53 Vital Signs Temperature 97.3 F L 09/25/18 09:25 Pulse Rate 62 09/25/18 09:25 Respiratory Rate 16 09/25/18 09:25 Blood Pressure 100/62 09/25/18 09:25 O2 Sat by Pulse Oximetry (%) Laboratory Tests 09/23/18 09/23/18 09/23/18 11:07 13:10 13:15 WBC 5.5 RBC 4.21 Hgb 14.6 Hct 42.7 MCV 101.3 H MCH 34.6 H MCHC 34.1 RDW 13.6 Plt Count 131 L D MPV 8.4 Sodium 136 Potassium 3.6 Chloride 98 Carbon Dioxide 26 Anion Gap 12 BUN 3.8 L Creatinine 0.6 Est GFR (CKD-EPI)AfAm 135.91 Est GFR (CKD-EPI)NonAf 117.26 Random Glucose 104 Calcium 9.0 Total Bilirubin 0.7 AST 88 H ALT 44 Alkaline Phosphatase 118 H Total Protein 7.9 Albumin 4.0 POC Urine HCG, Qual Negative RPR Titer 09/23/18 13:15 WBC RBC Hgb Hct MCV MCH MCHC RDW Plt Count MPV Sodium Potassium Chloride Carbon Dioxide Anion Gap BUN Creatinine Est GFR (CKD-EPI)AfAm Est GFR (CKD-EPI)NonAf Random Glucose Calcium Total Bilirubin AST ALT Alkaline Phosphatase Total Protein Albumin POC Urine HCG, Qual RPR Titer Nonreactive labs noted aaox3 ambulating no acute distress Assessment: 09/25/18 12:53 mild withdrawal sx Plan: continue detox increase fluids
[2018-09-25] MEDS: METHOCARBAMOL 500 MG TABLET PO PRN (15:03)
[2018-09-25] MEDS: hydrOXYzine HCL 25 MG TABLET (FP) PO PRN (20:56)
[2018-09-25] MEDS: THIAMINE HCL 100 MG TABLET (FP) PO SCH (22:41)
[2018-09-25] MEDS: MELATONIN 5 MG TABLETS PO PRN (22:43)
[2018-09-26] MEDS ORDERED: chlordiazePOXIDE HCL 10 MG CAPSULE PO SCH (05:00)
[2018-09-26 09:37] VITALS: BP 107/72; PULSE 71; TEMP 98
[2018-09-26] MEDS: NICOTINE 21 MG/24 HOURS TOPICAL PATCH TD SCH (10:39)
[2018-09-26] MEDS: NICOTINE POLACRILEX 4 MG GUM BUC PRN (10:40)
[2018-09-26] MEDS: PRENATAL VITAMINS W/ FOLIC ACID TABLET (FP) PO SCH (10:40)
--- NOTE | 2018-09-26 10:59 | PN ---
S Progress Note Note: pt was admitted in withdrawals pt c/o of withdrawals symptoms and aggressive symptomatic management attempted however pt in spite of extensive motivational counseling regarding the risk of relapse, seizures, DT's and/or loss, pt chose to sign out AMA.
--- NOTE | 2018-09-26 11:00 | DS ---
[facility] Detox Discharge Summary Admission Date: 09/23/18 - History Present History: Alcohol Dependence, Cannabis Dependence, Cocaine Dependence - Physical Exam Results Vital Signs: Vital Signs Temperature 98.0 F 09/26/18 09:37 Pulse Rate 71 09/26/18 09:37 Respiratory Rate 16 09/26/18 09:37 Blood Pressure 107/72 09/26/18 09:37 O2 Sat by Pulse Oximetry (%) Pertinent Admission Physical Exam Findings: pt arrived in withdrawals Laboratory Tests 09/23/18 09/23/18 09/23/18 11:07 13:10 13:15 WBC 5.5 RBC 4.21 Hgb 14.6 Hct 42.7 MCV 101.3 H MCH 34.6 H MCHC 34.1 RDW 13.6 Plt Count 131 L D MPV 8.4 Sodium 136 Potassium 3.6 Chloride 98 Carbon Dioxide 26 Anion Gap 12 BUN 3.8 L Creatinine 0.6 Est GFR (CKD-EPI)AfAm 135.91 Est GFR (CKD-EPI)NonAf 117.26 Random Glucose 104 Calcium 9.0 Total Bilirubin 0.7 AST 88 H ALT 44 Alkaline Phosphatase 118 H Total Protein 7.9 Albumin 4.0 POC Urine HCG, Qual Negative RPR Titer 09/23/18 13:15 WBC RBC Hgb Hct MCV MCH MCHC RDW Plt Count MPV Sodium Potassium Chloride Carbon Dioxide Anion Gap BUN Creatinine Est GFR (CKD-EPI)AfAm Est GFR (CKD-EPI)NonAf Random Glucose Calcium Total Bilirubin AST ALT Alkaline Phosphatase Total Protein Albumin POC Urine HCG, Qual RPR Titer Nonreactive today she is aaox3 ambulating no acute distress mild withdrawals noted however pt chose to sign out AMA. - Treatment Patient has Accepted a Rehab Referral to: pt declined rehab/aftercare; referral provided - Medication Discharge Medications: Ambulatory Orders Paliperidone Palmitate [Invega Sustenna] 39 mg IM 09/23/18 - Diagnosis (1) Alcohol dependence with uncomplicated withdrawal Current Visit: Yes Status: Chronic (2) Cannabis dependence, uncomplicated Current Visit: Yes Status: Chronic (3) Cocaine dependence Current Visit: Yes Status: Chronic Qualifiers: Substance use status: uncomplicated Qualified Code(s): F14.20 - Cocaine dependence, uncomplicated (4) Substance induced mood disorder Current Visit: Yes Status: Acute (5) Substance-induced sleep disorder Current Visit: Yes Status: Acute (6) Amenorrhea, secondary Current Visit: Yes Status: Chronic (7) Nicotine dependence Current Visit: Yes Status: Chronic Qualifiers: Nicotine product type: cigarettes Substance use status: uncomplicated Qualified Code(s): F17.210 - Nicotine dependence, cigarettes, uncomplicated (8) PTSD (post-traumatic stress disorder) Current Visit: Yes Status: Chronic (9) Bipolar II disorder Current Visit: No Status: Acute (10) Polysubstance (excluding opioids) dependence, daily use Current Visit: No Status: Acute (11) Schizoaffective disorder Current Visit: No Status: Chronic Qualifiers: Schizoaffective disorder type: depressive Qualified Code(s): F25.1 - Schizoaffective disorder, depressive type (12) Seizure disorder Current Visit: No Status: Chronic (13) Substance induced mood disorder Current Visit: No Status: Chronic (14) Psychiatric disorder Current Visit: No Status: Suspected - AMA Did Patient Leave Against Medical Advice: Yes (going home; refused aftercare)
[2018-09-27] MEDS ORDERED: chlordiazePOXIDE HCL 10 MG CAPSULE PO ONE (05:00)
== END 2018-09-26 11:15 | disposition left against medical advice (07) | DRG 770 ==
LOC: YASAS 09:37 → Y6N 12:26
PROVIDERS: ADMIT Surgery; ATTEND Surgery
PROC: HZ2ZZZZ Detoxification Services for Substance Abuse Treatment (ICD-10-PCS; principal; 2018-09-23)
DX: F10.230 Alcohol dependence with withdrawal, uncomplicated (principal); F14.20 Cocaine dependence, uncomplicated; F12.20 Cannabis dependence, uncomplicated; F17.210 Nicotine dependence, cigarettes, uncomplicated; F19.24 Other psychoactive substance dependence with psychoactive substance-induced mood disorder; F19.280 Other psychoactive substance dependence with psychoactive substance-induced anxiety disorder; F19.282 Other psychoactive substance dependence with psychoactive substance-induced sleep disorder; F43.10 Post-traumatic stress disorder, unspecified; F31.81 Bipolar II disorder; F25.9 Schizoaffective disorder, unspecified; F99 Mental disorder, not otherwise specified; N91.1 Secondary amenorrhea; B37.3 Candidiasis of vulva and vagina; Z88.0 Allergy status to penicillin
CPT/HCPCS: 36415; 80053; 81025; 85027; 86593; Q0162

== ENCOUNTER 2018-10-25 17:38 | Inpatient (IN) | payer OTHER ==
[2018-10-25 19:02] VITALS: BMI 20.1
--- NOTE | 2018-10-25 20:03 | HP ---
CIWA Score Nausea/Vomitin (vomiting x 3) Muscle Tremors: 4-Moderate,w/Arms Extend Anxiety: 4-Mod. Anxious/Guarded Agitation: 2 Paroxysmal Sweats: 3 Orientation: 1-Uncertain about Date Tacttile Disturbances: 0-None Auditory Disturbances: 0-None Visual Disturbances: 0-None Headache: 0-None Present CIWA-Ar Total Score: 17 - Admission Criteria OASAS Guidelines: Admission for Medically Managed Detox: Requires at least one of the followin. CIWA greater than 12 2. Seizures within the past 24 hours 3. Delirium tremens within the past 24 hours 4. Hallucinations within the past 24 hours 5. Acute intervention needed for co occurring medical disorder 6. Acute intervention needed for co occurring psychiatric disorder 7. Severe withdrawal that cannot be handled at a lower level of care (continued vomiting, continued diarrhea, abnormal vital signs) requiring intravenous medication and/or fluids 8. Admission ROS [facility] Chief Complaint: Alcohol withdrawal symptoms Allergies/Adverse Reactions: Allergies Allergy/AdvReac Type Severity Reaction Status Date / Time Penicillins Allergy Intermediate Verified 10/25/18 18:53 History of Present Illness: 37 years old female with 26 years of alcohol dependence (since age 11 years) is seeking admission to detox. Patient has been in detox multiple times and reports 8 years of sobriety. She reports medical history of anemia, seizures and depression. Patient denies suicidal ideation at this time Exam Limitations: No Limitations - Ebola screening Have you traveled outside of the country in the last 21 days: No (N) Have you had contact with anyone from an Ebola affected area: No Do you have a fever: No - Review of Systems Constitutional: Chills, Loss of Appetite, Changes in sleep EENT: reports: No Symptoms Reported Respiratory: reports: No Symptoms reported Cardiac: reports: No Symptoms Reported GI: reports: Nausea, Poor Appetite, Poor Fluid Intake : reports: No Symptoms Reported Musculoskeletal: reports: Muscle Pain Integumentary: reports: Dryness, Flushing Neuro: reports: Tremors Endocrine: reports: No Symptoms Reported, Unexplained Weight Loss Hematology: reports: Bleeding Diathesis Psychiatric: reports: Anxious Other Systems: Reviewed and Negative Patient History - Patient Medical History Hx Anemia: Yes (Ferrous sulfate) Hx Asthma: No Hx Chronic Obstructive Pulmonary Disease (COPD): No Hx Cancer: No Hx Cardiac Disorders: No Hx Congestive Heart Failure: No Hx Hypertension: No Hx Hypercholesterolemia: No Hx Pacemaker: No HX Cerebrovascular Accident: No Hx Seizures: Yes ( - Not on medication) Hx Dementia: No Hx Diabetes: No Hx Gastrointestinal Disorders: No Hx Liver Disease: No Hx Genitourinary Disorders: No Hx Sexually Transmitted Disorders: No Hx Renal Disease (ESRD): No Hx Thyroid Disease: No Hx Human Immunodeficiency Virus (HIV): No Hx Hepatitis C: No Hx Depression: Yes Hx Suicide Attempt: No Hx Bipolar Disorder: No Hx Schizophrenia: Yes (schizo-affective d/o, ptsd- invega q 3m im , [facility]) - Patient Surgical History Past Surgical History: No Hx Neurologic Surgery: No Hx Cataract Extraction: No Hx Cardiac Surgery: No Hx Lung Surgery: No Hx Breast Surgery: No Hx Breast Biopsy: No Hx Abdominal Surgery: No Hx Appendectomy: No Hx Cholecystectomy: No Hx Genitourinary Surgery: No Hx Section: No Hx Orthopedic Surgery: No Hx Hysterectomy: No Anesthesia Reaction: No - PPD History Previous Implant?: Yes Documented Results: Negative w/o proof Implanted On Prior [facility] Admission?: Yes Date: 12/28/17 Results: 0MM PPD to be Administered?: No - Reproductive History Patient is a Female of Child Bearing Age (11 -55 yrs old): Yes Last Menstrual Period: 03/04/18 Patient : No - Smoking Cessation Smoking history: Current every day smoker Have you smoked in the past 12 months: Yes Aproximately how many cigarettes per day: 20 Cigars Per Day: 0 Hx Chewing Tobacco Use: No Initiated information on smoking cessation: Yes 'Breaking Loose' booklet given: 10/25/18 - Substance & Tx. History Hx Alcohol Use: Yes Hx Substance Use: Yes Substance Use Type: Alcohol, Cocaine, Marijuana Hx Substance Use Treatment: Yes ([facility]) - Substances abused Alcohol Other (specify): VODKA/BEER Substance route: Oral Frequency: Daily Amount used: 5-22 oz beers/day, 1pt. vodka/day Age of first use: 15 Date of last use: 10/25/18 Crack Substance route: Smoking Frequency: Daily Amount used: 20 dollars Age of first use: 21 Date of last use: 10/24/18 Marijuana/Hashish Substance route: Smoking Frequency: Daily Amount used: 2 Blundts Age of first use: 20 Date of last use: 10/25/18 Heroin Substance route: Inhalation Frequency: 1-3 times last 30 days Amount used: 20 dollars/ every month Age of first use: 36 Date of last use: 10/16/18 Cocaine Substance route: Inhalation Frequency: 1-2 times per week Amount used: 20 dollars worth Age of first use: 21 Date of last use: 10/19/18 Family Disease History - Family Disease History Family Disease History: [place]: Mother, Other: Mother Admission Physical Exam [facility] - Vital Signs Vital Signs: Vital Signs - 24 hr 10/25/18 18:51 Temperature 97.1 F L Pulse Rate 67 Respiratory 16 Rate Blood Pressure 114/80 - Physical General Appearance: Yes: Severe Distress, Tremorous, Irritable, Anxious HEENTM: Yes: Within Normal Limits Respiratory: Yes: Lungs Clear, Normal Breath Sounds, No Respiratory Distress Neck: Yes: Supple Breast: Yes: Breast Exam Deferred Cardiology: Yes: Regular Rhythm, Regular Rate Abdominal: Yes: Within Normal Limits, Normal Bowel Sounds, Increased Bowel Sounds Genitourinary: Yes: Within Normal Limits Back: Yes: Normal Inspection Musculoskeletal: Yes: Back pain, Muscle Pain, Muscle weakness Extremities: Yes: Tremors Neurological: Yes: Alert, Normal Mood/Affect Integumentary: Yes: Within Normal Limits, Cyanotic Lymphatic: Yes: Within Normal Limits - Diagnostic (1) Anxiety Current Visit: Yes Status: Chronic (2) Alcohol dependence with uncomplicated withdrawal Current Visit: Yes Status: Acute (3) Cannabis dependence, uncomplicated Current Visit: Yes Status: Chronic (4) Cocaine dependence Current Visit: Yes Status: Chronic Qualifiers: Substance use status: uncomplicated Qualified Code(s): F14.20 - Cocaine dependence, uncomplicated (5) Nicotine dependence Current Visit: Yes Status: Chronic Qualifiers: Nicotine product type: cigarettes Substance use status: uncomplicated Qualified Code(s): F17.210 - Nicotine dependence, cigarettes, uncomplicated (6) Seizure disorder Current Visit: No Status: Chronic Cleared for Admission [facility] - Detox or Rehab [facility] Level of Care: Medically Managed Detox Regimen/Protocol: Librium Breathalyzer - Breathalyzer Breathalyzer: 0.191 Urine Drug Screen - Test Device Lot number: [id number] Expiration date: 08/02/20 - Control Is test valid?: Yes - Results Drug screen NEGATIVE: No Urine drug screen results: THC-Marijuana, MICHAEL-Cocaine, BZO-Benzodiazepines Inpatient Rehab Admission - Rehab Decision to Admit Inpatient rehab admission?: No
[2018-10-25] MEDS ORDERED: IBUPROFEN 400 MG TABLET (FP) PO PRN (20:21)
[2018-10-25] MEDS ORDERED: chlordiazePOXIDE HCL 25 MG CAPSULE PO PRN (20:21)
[2018-10-25] MEDS ORDERED: MAGNESIUM HYDROX 2400MG/30ML ORAL SUSPENSION 30 ML CUP PO PRN (20:21)
[2018-10-25] MEDS ORDERED: BISMUTH SUBSALICYLATE 524 MG/30 ML UD PO PRN (20:21)
[2018-10-25] MEDS ORDERED: MELATONIN 5 MG TABLETS PO PRN (20:21)
[2018-10-25] MEDS ORDERED: MENTHOL/PHENOL 1 EACH UD MM PRN (20:21)
[2018-10-25] MEDS ORDERED: hydrOXYzine PAMOATE 25 MG CAPSULE (FP) PO PRN (20:21)
[2018-10-25] MEDS ORDERED: MAG HYDROX/AL HYDROX/SIMETH 30 ML UNIT-DOSE CUP PO PRN (20:21)
[2018-10-25] MEDS ORDERED: ACETAMINOPHEN 325 MG TABLET (FP) PO PRN ×2 (20:21)
[2018-10-25] MEDS ORDERED: MAGNESIUM CITRATE 300 ML BOTTLE PO PRN (20:21)
[2018-10-25] MEDS: THIAMINE HCL 100 MG TABLET (FP) PO SCH (23:04)
[2018-10-25] MEDS: chlordiazePOXIDE HCL 25 MG CAPSULE PO SCH (23:05)
[2018-10-26] MEDS: chlordiazePOXIDE HCL 25 MG CAPSULE PO SCH ×4 (05:32→22:29)
[2018-10-26] MEDS: NICOTINE POLACRILEX 2 MG GUM BUC PRN ×3 (09:29→19:42)
[2018-10-26] MEDS: METHOCARBAMOL 500 MG TABLET PO PRN ×2 (10:28→22:29)
[2018-10-26] MEDS: PRENATAL VITAMINS W/ FOLIC ACID TABLET (FP) PO SCH (10:28)
--- NOTE | 2018-10-26 10:32 | CONSULT ---
[facility] Psychiatric Consult - Data Date of interview: 10/26/18 Admission source: [facility] Identifying data: This is one of multiple admissions to [facility] for this 37 y/ o female, self-referred for detoxification (cannabis, alcohol, crack/ cocaine). Interviewed at [address] [place] [address]. Patient is single, no dependents, homeless, unemployed and supported on food stamps. Substance Abuse History: Discussed in this session. Patient confirms current [facility] report as an accurate description of her addictions : Smoking history: Current every day smoker. Have you smoked in the past 12 months: Yes. Aproximately how many cigarettes per day: 20. Cigars Per Day: 0. Hx Chewing Tobacco Use: No. Initiated information on smoking cessation: Yes. 'Breaking Loose' booklet given: 10/25/18. - Substance & Tx. History. Hx Alcohol Use: Yes. Hx Substance Use: Yes. Substance Use Type: Alcohol, Cocaine, Marijuana. Hx Substance Use Treatment: Yes ([facility]). - Substances abused. Alcohol. Other (specify): VODKA/BEER. Substance route: Oral. Frequency: Daily. Amount used: 5-22 oz beers/day, 1pt. vodka/day. Age of first use: 15. Date of last use: 10/25/18. Crack. Substance route: Smoking. Frequency: Daily. Amount used: 20 dollars. Age of first use: 21. Date of last use: 10/24/18. Marijuana/Hashish. Substance route: Smoking. Frequency: Daily. Amount used: 2 Blundts. Age of first use: 20. Date of last use: 10/25/18. Heroin. Substance route: Inhalation. Frequency: 1-3 times last 30 days. Amount used: 20 dollars/ every month. Age of first use: 36. Date of last use: 10/16/18. * * Cocaine. Substance route: Inhalation. Frequency: 1-2 times per week. Amount used: 20 dollars worth. Age of first use: 21. Date of last use: Medical History: Medical profile is remarkable for anemia and a distant history of withdrawal-related seizures. Psychiatric History: Onset of psychiatric disturbances around age 21 (auditory hallucinations, mood shifts, behavioral dyscontrol). Patient presents with a history of multiple psychiatric hospitalizations ([facility], [facility], [facility], [facility]) + chronic non-adherence to psychiatric aftercare. Diagnosed with Schizoaffective Disorder and PTSD. Ms Whitman is still followed by the [facility] ACT team II ). Maintained on Invega IM (date of next injection : not recalled by patient). In this interview, the patient informs this senior medical writer of her decision to abstain from Invega (reason : side-effects). No reported history of suicide attempts. Physical/Sexual Abuse/Trauma History: Patient declines to discuss this domain. Additional Comment: Urine drug screen results: THC-Marijuana, MICHAEL-Cocaine, BZO- Benzodiazepines. Noted. Mental Status Exam - Mental Status Exam Alert and Oriented to: Time, Place, Person Cognitive Function: Good Patient Appearance: Unkempt, Disheveled (thin habitus) Mood: Withdrawn, Irritable Affect: Mood Congruent, Constricted Patient Behavior: Fatigued, Guarded Speech Pattern: Clear Voice Loudness: Normal Thought Process: Goal Oriented Thought Disorder: Not Present Hallucinations: Denies Suicidal Ideation: Denies Homicidal Ideation: Denies Insight/Judgement: Poor Sleep: Fair Appetite: Good Gait/Station: Normal Psychiatric Findings - Problem List ([place] 1, 2,3) (1) Alcohol dependence with uncomplicated withdrawal Current Visit: Yes Status: Acute (2) Cannabis dependence, uncomplicated Current Visit: Yes Status: Chronic (3) Cocaine dependence Current Visit: Yes Status: Chronic Qualifiers: Substance use status: uncomplicated Qualified Code(s): F14.20 - Cocaine dependence, uncomplicated (4) Nicotine dependence Current Visit: Yes Status: Chronic Qualifiers: Nicotine product type: cigarettes Substance use status: uncomplicated Qualified Code(s): F17.210 - Nicotine dependence, cigarettes, uncomplicated (5) Substance induced mood disorder Current Visit: Yes Status: Chronic (6) Schizoaffective disorder Current Visit: Yes Status: Chronic Qualifiers: Schizoaffective disorder type: depressive Qualified Code(s): F25.1 - Schizoaffective disorder, depressive type Comment: As per self-report + existing records. Followed by the [facility] ACT team. (7) PTSD (post-traumatic stress disorder) Current Visit: Yes Status: Chronic Comment: By history. - Initial Treatment Plan Initial Treatment Plan: Psychoeducation. Sleep hygiene. Detoxification. Support. [employer] Operations Consultant made an attempt to contact [facility] ([phone] ) : offices are closed. AA meetings. Observation.
[2018-10-26 10:58] LABS: HEMATOCRIT 36.4 % (32.4-45.2); HEMOGLOBIN 12.4 GM/dL (10.7-15.3); MCHC 34.2 g/dl (32.0-36.0); MEAN CELL VOLUME 102.3 fl (80-96); MEAN PLT VOLUME 8.5 fl (7.5-11.1); RBC 3.55 M/mm3 (3.60-5.2); RDW 14.6 % (11.6-15.6); WHITE BLOOD COUNT 6.9 K/mm3 (4.0-10.0)
[2018-10-26 11:02] LABS: ALBUMIN 3.2 g/dl (3.4-5.0); BILIRUBIN,TOTAL 0.3 mg/dL (0.2-1); BLOOD UREA NITROGEN 4.6 mg/dL (7-18); CALCIUM 8.9 mg/dL (8.5-10.1); CREATININE 0.7 mg/dL (0.55-1.3); POTASSIUM 4.1 mmol/L (3.5-5.1); TOT PROT 6.8 g/dl (6.4-8.2)
[2018-10-26 11:24] LABS: PLATELET COUNT 237 K/MM3 (134-434)
--- NOTE | 2018-10-26 16:14 | PN ---
S CIWA - CIWA Score Nausea/Vomitin-No Nausea/No Vomiting Muscle Tremors: 2 Anxiety: 3 Agitation: 0-Normal Activity Paroxysmal Sweats: 2 Orientation: 2-Disoriented Date<2 days Tacttile Disturbances: 2-Mild Itch/Numbness/Burn Auditory Disturbances: 3-Moderate Harsh/Frighten Visual Disturbances: 0-None Headache: 0-None Present CIWA-Ar Total Score: 14 BHS Progress Note (SOAP) Subjective: Anxious, Fatigue, Tremors, Interrupted Sleep. Objective: PATIENT A & O X 2 (UNCERTAIN ABOUT CURRENT DAY / DATE). IN NO ACUTE DISTRESS. 10/26/18 16:13 Vital Signs Temperature 97.7 F 10/26/18 13:45 Pulse Rate 62 10/26/18 13:45 Respiratory Rate 20 10/26/18 13:45 Blood Pressure 113/76 10/26/18 13:45 O2 Sat by Pulse Oximetry (%) Laboratory Tests 10/26/18 10/26/18 10/26/18 08:00 08:00 08:00 WBC 6.9 RBC 3.55 L Hgb 12.4 Hct 36.4 MCV 102.3 H MCH 35.0 H MCHC 34.2 RDW 14.6 Plt Count 237 D MPV 8.5 Sodium 139 Potassium 4.1 Chloride 103 Carbon Dioxide 28 Anion Gap 8 BUN 4.6 L Creatinine 0.7 Est GFR (CKD-EPI)AfAm 129.19 Est GFR (CKD-EPI)NonAf 111.47 Random Glucose 81 Calcium 8.9 Total Bilirubin 0.3 AST 42 H ALT 30 Alkaline Phosphatase 100 Total Protein 6.8 Albumin 3.2 L RPR Titer Nonreactive LABS NOTED. Assessment: 10/26/18 16:14 WITHDRAWAL SYMPTOMS. Plan: CONTINUE DETOX.
[2018-10-26] MEDS: THIAMINE HCL 100 MG TABLET (FP) PO SCH (22:29)
[2018-10-27] MEDS: chlordiazePOXIDE HCL 25 MG CAPSULE PO SCH ×2 (05:35→10:44)
[2018-10-27] MEDS: NICOTINE POLACRILEX 2 MG GUM BUC PRN ×2 (05:36→10:47)
[2018-10-27] MEDS: PRENATAL VITAMINS W/ FOLIC ACID TABLET (FP) PO SCH (10:44)
[2018-10-27 13:24] VITALS: BP 99/60; PULSE 54; TEMP 96.9
--- NOTE | 2018-10-27 15:43 | DS ---
[facility] Detox Discharge Summary Admission Date: 10/25/18 Discharge Date: 10/27/18 - History Present History: Alcohol Dependence Additional Comments: 37 years old female admitted on 10/26/18 for alcohol withdrawal sx management insists to leave the detox unit that "my is taking care of me" ciwa required inhospitalization for alcohol detox counselor nurse and real estate underwriter meet with the patient discuss risks of alcohol withdrawal without medical management can be fatal patient is alert oriented to place and time insists to take a bus home to be with today steady gait Cardiac : S1S2 Regular Pulmonary : clear lung bilaterally no wheezing breath ease and even Abdomen soft non tender kevin sound x 4 ate lunch and showered Pertinent Past History: seen by psychiatrist no new treatment - Physical Exam Results Vital Signs: Vital Signs Temperature 96.9 F L 10/27/18 13:23 Pulse Rate 54 L 10/27/18 13:23 Respiratory Rate 18 10/27/18 13:23 Blood Pressure 99/60 10/27/18 13:23 O2 Sat by Pulse Oximetry (%) Pertinent Admission Physical Exam Findings: alcohol withdrawal sx Laboratory Last Values WBC 6.9 K/mm3 (4.0-10.0) 10/26/18 08:00 RBC 3.55 M/mm3 (3.60-5.2) L 10/26/18 08:00 Hgb 12.4 GM/dL (10.7-15.3) 10/26/18 08:00 Hct 36.4 % (32.4-45.2) 10/26/18 08:00 MCV 102.3 fl (80-96) H 10/26/18 08:00 MCH 35.0 pg (25.7-33.7) H 10/26/18 08:00 MCHC 34.2 g/dl (32.0-36.0) 10/26/18 08:00 RDW 14.6 % (11.6-15.6) 10/26/18 08:00 Plt Count 237 K/MM3 (134-434) D 10/26/18 08:00 MPV 8.5 fl (7.5-11.1) 10/26/18 08:00 Sodium 139 mmol/L (136-145) 10/26/18 08:00 Potassium 4.1 mmol/L (3.5-5.1) 10/26/18 08:00 Chloride 103 mmol/L (98-107) 10/26/18 08:00 Carbon Dioxide 28 mmol/L (21-32) 10/26/18 08:00 Anion Gap 8 MMOL/L (8-16) 10/26/18 08:00 BUN 4.6 mg/dL (7-18) L 10/26/18 08:00 Creatinine 0.7 mg/dL (0.55-1.3) 10/26/18 08:00 Est GFR (CKD-EPI)AfAm 129.19 10/26/18 08:00 Est GFR (CKD-EPI)NonAf 111.47 10/26/18 08:00 Random Glucose 81 mg/dL (74-106) 10/26/18 08:00 Calcium 8.9 mg/dL (8.5-10.1) 10/26/18 08:00 Total Bilirubin 0.3 mg/dL (0.2-1) 10/26/18 08:00 AST 42 U/L (15-37) H 10/26/18 08:00 ALT 30 U/L (13-61) 10/26/18 08:00 Alkaline Phosphatase 100 U/L (45-117) 10/26/18 08:00 Total Protein 6.8 g/dl (6.4-8.2) 10/26/18 08:00 Albumin 3.2 g/dl (3.4-5.0) L 10/26/18 08:00 RPR Titer Nonreactive (NONREACTIVE) 10/26/18 08:00 lab noted - Treatment Hospital Course: Detox Protocol Followed, Responded well Patient has Accepted a Rehab Referral to: [facility] - Medication Discharge Medications: Ambulatory Orders Paliperidone Palmitate [Invega Sustenna] 39 mg IM MONTHLY 09/23/18 - Diagnosis (1) Alcohol dependence with uncomplicated withdrawal Current Visit: Yes Status: Acute (2) Nicotine dependence Current Visit: Yes Status: Acute Qualifiers: Nicotine product type: cigarettes Substance use status: in withdrawal Qualified Code(s): F17.213 - Nicotine dependence, cigarettes, with withdrawal (3) Substance induced mood disorder Current Visit: Yes Status: Suspected - AMA Did Patient Leave Against Medical Advice: Yes CIWA Score - CIWA Score Nausea/Vomitin-No Nausea/No Vomiting Muscle Tremors: 2 Anxiety: 2 Agitation: 1-Slight > Activity Paroxysmal Sweats: 2 Orientation: 1-Uncertain about Date Tacttile Disturbances: 2-Mild Itch/Numbness/Burn Auditory Disturbances: 3-Moderate Harsh/Frighten Visual Disturbances: 0-None Headache: 0-None Present CIWA-Ar Total Score: 13
[2018-10-28] MEDS ORDERED: chlordiazePOXIDE HCL 10 MG CAPSULE PO PRN
[2018-10-28] MEDS ORDERED: chlordiazePOXIDE HCL 10 MG CAPSULE PO SCH (05:00)
--- NOTE | 2018-10-28 13:03 | EKG ---
Test Reason : Blood Pressure : / mmHG Vent. Rate : 079 BPM Atrial Rate : 079 BPM P-R Int : 142 ms QRS Dur : 090 ms QT Int : 426 ms P-R-T Axes : 042 051 043 degrees QTc Int : 488 ms NORMAL SINUS RHYTHM PROLONGED QT ABNORMAL ECG WHEN COMPARED WITH ECG OF 17-SEP-2018 16:44, NO SIGNIFICANT CHANGE WAS FOUND Confirmed by AGATHA MCKEON MD ([id number]) on 10/28/2018 1:02:32 PM Referred By: Confirmed By:AGATHA MCKEON MD
[2018-10-29] MEDS ORDERED: chlordiazePOXIDE HCL 10 MG CAPSULE PO SCH (05:00)
[2018-10-30] MEDS ORDERED: chlordiazePOXIDE HCL 10 MG CAPSULE PO ONE (05:00)
== END 2018-10-27 14:29 | disposition left against medical advice (07) | DRG 770 ==
LOC: YASAS 17:38 → Y3N 21:27
PROVIDERS: ADMIT Surgery; ATTEND Surgery
PROC: HZ2ZZZZ Detoxification Services for Substance Abuse Treatment (ICD-10-PCS; principal; 2018-10-25)
DX: F10.230 Alcohol dependence with withdrawal, uncomplicated (principal); F14.20 Cocaine dependence, uncomplicated; F12.20 Cannabis dependence, uncomplicated; F17.213 Nicotine dependence, cigarettes, with withdrawal; F19.24 Other psychoactive substance dependence with psychoactive substance-induced mood disorder; F25.1 Schizoaffective disorder, depressive type; F32.9 Major depressive disorder, single episode, unspecified; F43.10 Post-traumatic stress disorder, unspecified; D64.9 Anemia, unspecified; R56.9 Unspecified convulsions
CPT/HCPCS: 36415; 80053; 81025; 85027; 86593; 93005; 93010

== ENCOUNTER 2018-12-28 12:14 | Inpatient (IN) | payer OTHER ==
--- NOTE | 2018-12-28 15:47 | HP ---
CIWA Score Nausea/Vomitin Muscle Tremors: 2 Anxiety: 3 Agitation: 3 Paroxysmal Sweats: No Perspiration Orientation: 0-Oriented Tacttile Disturbances: 1-Very Mild Itch/Numbness Auditory Disturbances: 0-None Visual Disturbances: 0-None Headache: 2-Mild CIWA-Ar Total Score: 13 - Admission Criteria OASAS Guidelines: Admission for Medically Managed Detox: Requires at least one of the followin. CIWA greater than 12 2. Seizures within the past 24 hours 3. Delirium tremens within the past 24 hours 4. Hallucinations within the past 24 hours 5. Acute intervention needed for co occurring medical disorder 6. Acute intervention needed for co occurring psychiatric disorder 7. Severe withdrawal that cannot be handled at a lower level of care (continued vomiting, continued diarrhea, abnormal vital signs) requiring intravenous medication and/or fluids 8. Admitting History and Physical - Past Medical History ...LMP: 03/04/18 - Smoking History Smoking history: Current every day smoker Have you smoked in the past 12 months: Yes Aproximately how many cigarettes per day: 20 - Alcohol/Substance Use Hx Alcohol Use: Yes Admission ROS [facility] - HPI Chief Complaint: i need help to stop using alcohol,cocaine,marijuana,also heroi abused Allergies/Adverse Reactions: Allergies Allergy/AdvReac Type Severity Reaction Status Date / Time Penicillins Allergy Intermediate Verified 12/28/18 13:45 History of Present Illness: this 38 years old female with alcohol,cocaine,marijuana and heroin abused seeking detox ,withdrawal symptom, alcohol related seizure syncope multiple admissions in detox but noncompliance issue,keep relapsing nicotine 1 pack/day no significant period of sobriety encourage rehab after detox weight loss anxiety,depression - Ebola screening Have you traveled outside of the country in the last 21 days: No (N) Have you had contact with anyone from an Ebola affected area: No Do you have a fever: No Patient History - Patient Medical History Hx Anemia: Yes (no med) Hx Asthma: No Hx Chronic Obstructive Pulmonary Disease (COPD): No Hx Cancer: No Hx Cardiac Disorders: No Hx Congestive Heart Failure: No Hx Hypertension: No Hx Hypercholesterolemia: No Hx Pacemaker: No HX Cerebrovascular Accident: No Hx Seizures: Yes ( - Not on medication,alcohol related seizure) Hx Dementia: No Hx Diabetes: No Hx Gastrointestinal Disorders: No Hx Liver Disease: No Hx Genitourinary Disorders: No Hx Sexually Transmitted Disorders: No Hx Renal Disease (ESRD): No Hx Thyroid Disease: No Hx Human Immunodeficiency Virus (HIV): No (last 2019 negative) Hx Hepatitis C: No Hx Depression: Yes Hx Suicide Attempt: No Hx Bipolar Disorder: No Hx Schizophrenia: Yes (schizo-affective d/o, ptsd- invega q 3m im , [facility]) Other Medical History: no suicidal,no homicidal - Patient Surgical History Past Surgical History: No Hx Neurologic Surgery: No Hx Cataract Extraction: No Hx Cardiac Surgery: No Hx Lung Surgery: No Hx Breast Surgery: No Hx Breast Biopsy: No Hx Abdominal Surgery: No Hx Appendectomy: No Hx Cholecystectomy: No Hx Genitourinary Surgery: No Hx Section: No Hx Orthopedic Surgery: No Hx Hysterectomy: No Anesthesia Reaction: No - PPD History Previous Implant?: Yes Documented Results: Negative w/proof Date: 12/28/17 Results: 0MM PPD to be Administered?: No - Reproductive History Patient is a Female of Child Bearing Age (11 -55 yrs old): Yes Last Menstrual Period: 08/17/18 Patient : No - Smoking Cessation Smoking history: Current every day smoker Have you smoked in the past 12 months: Yes Aproximately how many cigarettes per day: 20 Cigars Per Day: 0 Hx Chewing Tobacco Use: No Initiated information on smoking cessation: Yes 'Breaking Loose' booklet given: 12/28/18 - Substance & Tx. History Hx Alcohol Use: Yes Hx Substance Use: Yes Substance Use Type: Alcohol, Cocaine, Marijuana, Opiates Hx Substance Use Treatment: Yes ([facility] 10/25/09 to 10/27/18 not completed) - Substances abused Alcohol Other (specify): VODKA/BEER Substance route: Oral Frequency: Daily Amount used: 5-22 oz beers/day, 1pt. vodka/day Age of first use: 15 Date of last use: 12/28/18 Crack Substance route: Smoking Frequency: Daily Amount used: 20 dollars Age of first use: 21 Date of last use: 12/28/18 Marijuana/Hashish Substance route: Smoking Frequency: Daily Amount used: 2 Blundts Age of first use: 20 Date of last use: 12/28/18 Heroin Substance route: Injection Frequency: 1-2 times per week Amount used: 1 hit every 2 days Age of first use: 36 Date of last use: 12/28/18 Cocaine Substance route: Inhalation Frequency: 1-3 times last 30 days Amount used: 100$ Age of first use: 21 Date of last use: 12/28/18 Admission Physical Exam [facility] - Vital Signs Vital Signs: Vital Signs - 24 hr 12/28/18 13:47 Temperature 97.8 F Pulse Rate 116 H Respiratory 18 Rate Blood Pressure 104/68 - Physical General Appearance: Yes: Intoxicated, Tremorous, Irritable, Sweating, Anxious HEENTM: Yes: Normal ENT Inspection, Pharynx Normal Respiratory: Yes: Lungs Clear, Normal Breath Sounds, No Respiratory Distress Neck: Yes: Within Normal Limits, Supple, Trachea in good position Breast: Yes: Breast Exam Deferred Cardiology: Yes: Tachycardia Abdominal: Yes: Within Normal Limits, Normal Bowel Sounds, Non Tender, Soft Genitourinary: Yes: Within Normal Limits Back: Yes: Muscle Spasm Musculoskeletal: Yes: Back pain, Muscle Pain Extremities: Yes: Tremors Neurological: Yes: field cane scaler helper II-XII NML intact, Alert, Motor Strength 5/5 Integumentary: Yes: Dry Lymphatic: Yes: Within Normal Limits - Diagnostic (1) Alcohol dependence with uncomplicated withdrawal Status: Acute (2) Nicotine dependence Status: Acute Qualifiers: Nicotine product type: cigarettes Substance use status: in withdrawal Qualified Code(s): F17.213 - Nicotine dependence, cigarettes, with withdrawal (3) Cannabis dependence, uncomplicated Status: Acute (4) Seizure disorder Status: Chronic (5) Cocaine dependence Status: Acute (6) Heroin abuse Status: Acute Cleared for Admission [facility] - Detox or Rehab [facility] Level of Care: Medically Managed Detox Regimen/Protocol: Librium Breathalyzer - Breathalyzer Breathalyzer: 0.196 Urine Drug Screen - Test Device Lot number: [id number] Expiration date: 08/02/20 - Control Is test valid?: Yes - Results Drug screen NEGATIVE: No Urine drug screen results: THC-Marijuana, MICHAEL-Cocaine Inpatient Rehab Admission - Rehab Decision to Admit Inpatient rehab admission?: No
[2018-12-28] MEDS ORDERED: MENTHOL/PHENOL 1 EACH UD MM PRN (16:05)
[2018-12-28] MEDS ORDERED: METHOCARBAMOL 500 MG TABLET PO PRN (16:05)
[2018-12-28] MEDS ORDERED: IBUPROFEN 400 MG TABLET (FP) PO PRN (16:05)
[2018-12-28] MEDS ORDERED: chlordiazePOXIDE HCL 25 MG CAPSULE PO PRN (16:05)
[2018-12-28] MEDS ORDERED: NICOTINE POLACRILEX 2 MG GUM BUC PRN (16:05)
[2018-12-28] MEDS ORDERED: hydrOXYzine PAMOATE 25 MG CAPSULE (FP) PO PRN (16:05)
[2018-12-28] MEDS ORDERED: MAG HYDROX/AL HYDROX/SIMETH 30 ML UNIT-DOSE CUP PO PRN (16:05)
[2018-12-28] MEDS ORDERED: ACETAMINOPHEN 325 MG TABLET (FP) PO PRN ×2 (16:05)
[2018-12-28] MEDS ORDERED: MAGNESIUM HYDROX 2400MG/30ML ORAL SUSPENSION 30 ML CUP PO PRN (16:05)
[2018-12-28] MEDS ORDERED: MAGNESIUM CITRATE 300 ML BOTTLE PO PRN (16:05)
[2018-12-28] MEDS ORDERED: BISMUTH SUBSALICYLATE 524 MG/30 ML UD PO PRN (16:05)
[2018-12-28] MEDS ORDERED: THIAMINE HCL 100 MG TABLET (FP) PO SCH (22:00)
[2018-12-28] MEDS ORDERED: MELATONIN 5 MG TABLETS PO PRN (22:00)
[2018-12-28] MEDS: chlordiazePOXIDE HCL 25 MG CAPSULE PO SCH (22:35)
[2018-12-29] MEDS: chlordiazePOXIDE HCL 25 MG CAPSULE PO SCH ×2 (05:28→10:55)
--- NOTE | 2018-12-29 08:56 | CONSULT ---
[facility] Psychiatric Consult - Data Date of interview: 12/29/18 Admission source: Self-referred Identifying data: Ms Whitman is a 38 years old female, unemployed receiving food stamp, homeless seeking detox treatment for alcohol, opioid, cocaine and cannabis Substance Abuse History: Reports history of alcohol, heroin cocaine and marijuana use. Refer to addiction counselor's summary for further information Medical History: Significant for anemia and history of alcohol withdrawal- related seizures. Smokes cigarettes 1 ppd Psychiatric History: Reports that her psychiatric contact occured around age 21 due to onset of auditory hallucinations, mood disturbance and behavioral dyscontrol. She saw a psychiatrist at [facility], diagnosed with Schizoaffective Disorder, PTSD and started on psychotropic medications. Reports multiple previous psychiatric hospitalizations at various facilities including [facility], [facility], [facility]. Reports chronic non-adherence to psychiatric aftercare. She reports that her psychiatric treatment is provided by the [facility] team [facility] ([phone]) and she is maintained on Invega IM. Told service writer that she has seen her psychiatrist in a while and has not had an injection in two months. She is not willing to take any psychotropic medication at this time. In previous admission, she cited adverse-effect(amenorrhea) as her reason for unwillingness to take that medication. Denies previous suicide attempts. At present, denies experiencing psychotic, manic symptos, S/H ideations. However, reports feeling depressed and sleeping poorly Physical/Sexual Abuse/Trauma History: Denies history of emotional, physical or sexual abuse as well as DV relationship Mental Status Exam - Mental Status Exam Alert and Oriented to: Time, Place, Person Patient Appearance: Well Groomed Mood: Depressed Affect: Appropriate Patient Behavior: Cooperative Speech Pattern: Clear Voice Loudness: Moderately Soft/Quiet Thought Process: Intact, Goal Oriented Hallucinations: Denies Suicidal Ideation: Denies Homicidal Ideation: Denies Insight/Judgement: Poor Sleep: Poorly Appetite: Good Muscle strength/Tone: Normal Gait/Station: Normal Psychiatric Findings - Problem List (Connelly 1, 2,3) (1) Schizoaffective disorder Current Visit: No Status: Chronic Qualifiers: Schizoaffective disorder type: depressive Qualified Code(s): F25.1 - Schizoaffective disorder, depressive type Comment: As per self-report + existing records. Followed by [facility]. (2) Bipolar II disorder Current Visit: No Status: Ruled-out (3) PTSD (post-traumatic stress disorder) Current Visit: No Status: Chronic Comment: By history. (4) Substance induced mood disorder Current Visit: No Status: Acute (5) Substance-induced sleep disorder Current Visit: No Status: Acute (6) Alcohol dependence with uncomplicated withdrawal Current Visit: No Status: Acute (7) Cocaine dependence Current Visit: Yes Status: Acute (8) Cannabis dependence, uncomplicated Current Visit: No Status: Acute (9) Opioid abuse Current Visit: Yes Status: Acute (10) Nicotine dependence Current Visit: No Status: Chronic Qualifiers: Nicotine product type: cigarettes Substance use status: in withdrawal Qualified Code(s): F17.213 - Nicotine dependence, cigarettes, with withdrawal (11) Amenorrhea, secondary Current Visit: No Status: Chronic (12) Alcohol related seizure Current Visit: Yes Status: Resolved - Initial Treatment Plan Initial Treatment Plan: 1) Start Melatonin 5 mg po HS prn for insomnia. 2) Continue inpatient detoxification
[2018-12-29] MEDS ORDERED: PRENATAL VITAMINS W/ FOLIC ACID TABLET (FP) PO SCH (10:00)
--- NOTE | 2018-12-29 10:03 | PN ---
[facility] CIWA - CIWA Score Nausea/Vomitin-Mild Nausea/No Vomiting Muscle Tremors: 5 Anxiety: 4-Mod. Anxious/Guarded Agitation: 3 Paroxysmal Sweats: 2 Orientation: 1-Uncertain about Date Tacttile Disturbances: 0-None Auditory Disturbances: 0-None Visual Disturbances: 0-None Headache: 0-None Present CIWA-Ar Total Score: 16 [facility] Progress Note (SOAP) Subjective: 38 years old female admitted on 12/28/18 for alcohol withdrawal sx management treated with librium detox regimen tolerate well at this time tremor anxious restlessness Objective: 12/29/18 10:07 Vital Signs Temperature 97.6 F 12/29/18 09:08 Pulse Rate 80 12/29/18 09:08 Respiratory Rate 18 12/29/18 09:08 Blood Pressure 101/77 12/29/18 09:08 O2 Sat by Pulse Oximetry (%) 12/29/18 10:09 lab see 10/2018 patient will be seen by psychiatrist today patient prefers ability and disfavor monthly injection Assessment: 12/29/18 10:10 alcohol withdrawal sx history of alcohol withdrawal seizure begin gabapentin 100 mg po daily if patient tolerate well may increase dosage during the detox stay Plan: continue librium detox regimen
[2018-12-29] MEDS ORDERED: GABAPENTIN 100 MG CAPSULE (FP) PO SCH (10:15)
[2018-12-29 12:57] VITALS: BP 109/80; PULSE 82; TEMP 98.6
--- NOTE | 2018-12-29 15:45 | DS ---
[facility] Detox Discharge Summary Admission Date: 12/28/18 Discharge Date: 12/29/18 - History Present History: Alcohol Dependence Additional Comments: after lunch patient insists to leave the detox without apparent reason patient is alert speech clearly steady gait cardiac S1S2 regular rate rhythm extremities full range of motion skin warm moist Pertinent Past History: patient insists to leave the detox case discuss with the nurse and the counselor against medical advice is best discharge status - Physical Exam Results Vital Signs: Vital Signs Temperature 98.6 F 12/29/18 12:57 Pulse Rate 82 12/29/18 12:57 Respiratory Rate 16 12/29/18 12:57 Blood Pressure 109/80 12/29/18 12:57 O2 Sat by Pulse Oximetry (%) Pertinent Admission Physical Exam Findings: alcohol withdrawal sx lab see 10/2018 - Treatment Hospital Course: Detox Protocol Followed, Responded well Patient has Accepted a Rehab Referral to: community support approach - Medication Discharge Medications: Ambulatory Orders NK [No Known Home Medication] 12/28/18 - Diagnosis (1) Alcohol dependence with uncomplicated withdrawal Status: Acute (2) Substance induced mood disorder Status: Suspected (3) Nicotine dependence Status: Acute Qualifiers: Nicotine product type: cigarettes Substance use status: in withdrawal Qualified Code(s): F17.213 - Nicotine dependence, cigarettes, with withdrawal - AMA Did Patient Leave Against Medical Advice: Yes CIWA Score - CIWA Score Nausea/Vomitin-Mild Nausea/No Vomiting Muscle Tremors: 4-Moderate,w/Arms Extend Anxiety: 3 Agitation: 2 Paroxysmal Sweats: 2 Orientation: 1-Uncertain about Date Tacttile Disturbances: 0-None Auditory Disturbances: 0-None Visual Disturbances: 0-None Headache: 0-None Present CIWA-Ar Total Score: 13
[2018-12-30] MEDS ORDERED: chlordiazePOXIDE HCL 25 MG CAPSULE PO SCH (05:00)
[2018-12-31] MEDS ORDERED: chlordiazePOXIDE HCL 10 MG CAPSULE PO PRN
[2018-12-31] MEDS ORDERED: chlordiazePOXIDE HCL 10 MG CAPSULE PO SCH (05:00)
[2019-01-01] MEDS ORDERED: chlordiazePOXIDE HCL 10 MG CAPSULE PO SCH (05:00)
[2019-01-02] MEDS ORDERED: chlordiazePOXIDE HCL 10 MG CAPSULE PO ONE (05:00)
== END 2018-12-29 15:00 | disposition left against medical advice (07) | DRG 770 ==
LOC: YASAS 12:14 → Y3N 16:12
PROVIDERS: ADMIT Allergy & Immunology; ATTEND Allergy & Immunology
PROC: HZ2ZZZZ Detoxification Services for Substance Abuse Treatment (ICD-10-PCS; principal; 2018-12-28)
DX: F10.230 Alcohol dependence with withdrawal, uncomplicated (principal); F11.20 Opioid dependence, uncomplicated; F14.20 Cocaine dependence, uncomplicated; F12.20 Cannabis dependence, uncomplicated; F17.210 Nicotine dependence, cigarettes, uncomplicated; F19.282 Other psychoactive substance dependence with psychoactive substance-induced sleep disorder; F19.24 Other psychoactive substance dependence with psychoactive substance-induced mood disorder; F25.1 Schizoaffective disorder, depressive type; F43.10 Post-traumatic stress disorder, unspecified; R56.9 Unspecified convulsions; N91.1 Secondary amenorrhea; Z88.0 Allergy status to penicillin
CPT/HCPCS: 81025